=== PATIENT | male | born 1965 | race Caucasian/White ===

== ENCOUNTER 2018-10-07 15:26 | Emergency (ER) | payer SELFPAY ==
[~2018-10-07] VITALS: Ht 157.5 cm; Wt 68.0 kg
--- OUTSIDE RECORDS SUMMARY | 2018-10-07 15:31 | XMS REPORT | Referral Summary ---
Author Author [facility] Organization [facility] Address Unknown Phone Unavailable Care Team Providers Care Spear Fisher Name Role Phone Aleksandra Martinez PCP Encounter Date(s): 03/20/16 - 03/20/16 [facility] [address] [place], [place] [address] [phone] Discharge Diagnosis: Chronic low back pain Discharge Diagnosis: Hypertension Discharge Disposition: 01-Home or Self Care Attending Physician: Aftab Chung MD Admitting Physician: Aftab Chung MD Vital Signs Most recent to 1 oldest [Reference Range]: Temperature Oral 36.8 degC [35.8-37.3 degC] (03/20/16 1:19 PM) Peripheral Pulse 98 bpm Rate [60-100 bpm] (03/20/16 3:27 PM) Respiratory Rate 16 br/min [14-20 br/min] (03/20/16 3:27 PM) Blood Pressure 142/90 mmHg [90-140/60-90 mmHg] *HI* (03/20/16 3:27 PM) Problem List Condition Effective Dates Status Health Status Informant Acute Active pain(Confirmed) Diabetes(Confirmed) Active patient High blood Active patient pressure(Confirmed) Depression(Confirmed Active patient ) Substance Active patient abuse(Confirmed) Allergies, Adverse Reactions, Alerts No Known Medication Allergies Medications Advair HFA 115 mcg-21 mcg/inh inhalation aerosol 2 puffs, Inhalation, Daily, # 1 Each, 0 Refill(s), Indication: SOA Start Date: 03/10/16 Status: Ordered carvedilol 12.5 mg oral tablet 12.5 mg 1 tabs, Oral, Daily, 0 Refill(s), Indication: HTN Start Date: 03/05/16 Status: Ordered hydrOXYzine hydrochloride 25 mg oral tablet 25 mg 1 tabs, Oral, q6hr, Anxiety, # 90 tabs, 0 Refill(s), Indication: anxiety Start Date: 03/16/16 Stop Date: 04/15/16 Status: Ordered ibuprofen 800 mg, Oral, BID, as needed for headache, 0 Refill(s) Start Date: 03/05/16 Status: Ordered lisinopril 10 mg oral tablet 20 mg 2 tabs, Oral, Daily, 0 Refill(s), Indication: HTN Start Date: 09/06/15 Status: Ordered metFORMIN 500 mg oral tablet 500 mg 1 tabs, Oral, Daily, 0 Refill(s), Indication: glycemic control Start Date: 09/06/15 Status: Ordered Remeron 30 mg oral tablet 30 mg 1 tabs, Oral, Bedtime (once a day), # 30 tabs, 0 Refill(s), Indication: mo od Start Date: 03/16/16 Status: Ordered simvastatin 40 mg oral tablet 40 mg 1 tabs, Oral, Daily, # 90 tabs, 0 Refill(s), Indication: hypeercholesterol emia Start Date: 09/06/15 Status: Ordered traMADol 50 mg oral tablet 50 mg 1 tabs, Oral, q8hr, X 5 days, # 15 tabs, 0 Refill(s) Start Date: 03/20/16 Stop Date: 03/25/16 Status: Ordered Ultram 50 mg oral tablet 100 mg 2 tabs, Oral, q6hr, Pain Moderate (4-6), # 30 tabs, 0 Refill(s), Indicati on: pain Start Date: 03/16/16 Stop Date: 03/30/16 Status: Ordered Visine 1 drops, Eye-Both, BID, as needed for dry eyes, 0 Refill(s) Start Date: 03/05/16 Status: Ordered Results No data available for this section Immunizations Vaccine Date Refusal Reason influenza virus vaccine, live 02/19/13 Procedures No data available for this section Social History Social History Type Response Smoking Status Current every day smoker; Tobacco use per day: 1 Pack Assessment and Plan No data available for this section
--- OUTSIDE RECORDS SUMMARY | 2018-10-07 15:31 | XMS REPORT | Referral Summary ---
Author Author [facility] Organization [facility] Address Unknown Phone Unavailable Care Team Providers Care Dimensional Integration Engineer Name Role Phone Aleksandra Martinez PCP Encounter Date(s): 07/06/16 - 07/06/16 [facility] [address] [place], [place] [address] Discharge Diagnosis: Abrasion of right elbow Discharge Diagnosis: Contusion of right elbow Discharge Disposition: 01-Home or Self Care Attending Physician: Darnell Bhakta MD Admitting Physician: Darnell Bhakta MD Vital Signs Most recent to 1 oldest [Reference Range]: Temperature Oral 37.1 degC [35.8-37.3 degC] (07/06/16 8:40 AM) Peripheral Pulse 93 bpm Rate [60-100 bpm] (07/06/16 8:40 AM) Respiratory Rate 16 br/min [14-20 br/min] (07/06/16 8:40 AM) Blood Pressure 137/91 mmHg [90-140/60-90 mmHg] (07/06/16 8:40 AM) SpO2 97 % (07/06/16 8:40 AM) Problem List Condition Effective Dates Status Health [...] Indication: HTN Start Date: 03/05/16 Status: Ordered ibuprofen 800 mg, Oral, BID, as needed for headache, 0 Refill(s) Start Date: 03/05/16 Status: Ordered lisinopril 10 mg oral tablet 20 mg 2 tabs, Oral, Daily, 0 Refill(s), Indication: HTN Start Date: 09/06/15 Status: Ordered lisinopril 20 mg oral tablet 20 mg 1 tabs, Oral, Daily, # 30 tabs, 0 Refill(s) Start Date: 06/05/16 Status: Ordered metFORMIN 500 mg oral tablet 500 mg 1 tabs, Oral, Daily, 0 Refill(s), Indication: glycemic control Start Date: 09/06/15 Status: Ordered Nitrostat 0.4 mg sublingual tablet 0.4 mg 1 tabs, SubLingual, q5min, as needed for chest pain, not to exceed 3 dose s/15 min--if pain persists, seek medical attention, # 1 bottles, 0 Refill(s) Start Date: 06/05/16 Status: Ordered Pepcid 20 mg oral tablet 20 mg 1 tabs, Oral, BID, # 60 tabs, 0 Refill(s) Start Date: 06/05/16 Status: Ordered Remeron 30 mg oral tablet 30 mg 1 tabs, Oral, Bedtime (once a day), # 30 tabs, 0 Refill(s), Indication: mo od Start Date: 03/16/16 Status: Ordered simvastatin 40 mg oral tablet 40 mg 1 tabs, Oral, Daily, # 90 tabs, 0 Refill(s), Indication: hypeercholesterol emia Start Date: 09/06/15 Status: Ordered Visine 1 drops, Eye-Both, BID, as needed for dry eyes, 0 Refill(s) Start Date: 03/05/16 Status: Ordered Results No data available for this section Immunizations Given and Recorded Vaccine Date Status Refusal Reason influenza virus vaccine, live 02/19/13 Given Procedures No data available for this section Social History Social History Type Response Smoking Status Current every day smoker; Tobacco use per day: 1 Pack Assessment and Plan No data available for this section
--- OUTSIDE RECORDS SUMMARY | 2018-10-07 15:32 | XMS REPORT ---
Author Author LORENZA METZ [facility] Address [address] [phone] Care Team Providers Care Donor Support Technician Name Role Phone LORENZA METZ Unavailable PROBLEMS Type Condition ICD9-CM Code [id number] Code Onset Dates Condition Status SNOMED Code Problem Essential hypertension I10 Active 22431568 Problem PTSD (post-traumatic stress disorder) F43.10 Active 02974563 Problem Chemical abuse F19.10 Active 62556024 ALLERGIES No Known Allergies ENCOUNTERS Encounter Location Date Diagnosis [facility] [address] [phone] September, Essential hypertension I10 ; Chemical abuse F19.10 and PTSD (post- traumatic stress disorder) F43.10 IMMUNIZATIONS No Known Immunizations SOCIAL HISTORY Never Assessed REASON FOR VISIT at treatment center, needs BP addressed PLAN OF CARE Activity Details Follow Up 3 months if in the area Reason: VITAL SIGNS Weight 148 lbs 2017-09-06 Height 63 in 2017-09-06 BMI 26.21 kg/m2 2017-09-06 Temperature 98.5 degrees Fahrenheit 2017-09-06 Heart Rate 76 /min 2017-09-06 Oximetry 97 % 2017-09-06 Blood pressure systolic 112 mm Hg 2017-09-06 Blood pressure diastolic 71 mm Hg 2017-09-06 MEDICATIONS Medication Instructions Dosage Frequency Start Date End Date Duration Status Lisinopril-Hydrochlorothiazide 20-25 MG Orally Once a day 1 tablet 24h September, 30 day(s) Active Lisinopril-Hydrochlorothiazide 20-25 MG Orally Once a day 1 tablet 24h 30 day(s) Active RESULTS No Results PROCEDURES No Known procedures INSTRUCTIONS MEDICATIONS ADMINISTERED No Known Medications MEDICAL (GENERAL) HISTORY Type Description Date Medical History drug abuse Medical History alcohol abuse Medical History hypertension Surgical History 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
--- OUTSIDE RECORDS SUMMARY | 2018-10-07 15:32 | XMS REPORT ---
Author Author Brandon Grimaldo Organization [employer] Address Unknown Phone Unavailable Care Team Providers Care Export Freight Manager Name Role Phone Brandon Grimaldo CP Unavailable Allergies No Known Allergies Problems No Known Problems Medications No Known Medications Results No Known Results Summary Purpose [employer] Submission
--- OUTSIDE RECORDS SUMMARY | 2018-10-07 15:32 | XMS REPORT ---
Author Author Aftab Metcalf Organization [employer] Address Unknown Phone Unavailable Care Team Providers Care Turkey Cleaner Name Role Phone Aftab Metcalf CP Unavailable Allergies No Known Allergies Problems No Known Problems Medications No Known Medications Results No Known Results Summary Purpose [employer] Submission
--- OUTSIDE RECORDS SUMMARY | 2018-10-07 15:32 | XMS REPORT ---
Author Author Tanna Gomez Organization [employer] Address Unknown Phone Unavailable Care Team Providers Care Channel Layer Name Role Phone Tanna Gomez CP Unavailable Allergies No Known Allergies Problems No Known Problems Medications No Known Medications Results No Known Results Summary Purpose [employer] Submission
--- OUTSIDE RECORDS SUMMARY | 2018-10-07 15:32 | XMS REPORT ---
Author Author LORENZA METZ [facility] Address [address] [phone] Care Team Providers Care Distribution Center Assistant Name Role Phone LORENZA METZ Unavailable PROBLEMS Type Condition ICD9-CM Code [id number] Code Onset Dates Condition Status SNOMED Code Problem Other chronic pain G89.29 Active 05888388 Problem Essential hypertension I10 Active 47639786 Problem PTSD (post-traumatic stress disorder) F43.10 Active 12434832 Problem Chemical abuse F19.10 Active 13881117 ALLERGIES No Known Allergies ENCOUNTERS Encounter Location Date Diagnosis [facility] [address] [place] [id number] Nov, Acute allergic conjunctivitis of both eyes H10.13 ; Pain in left shoulder M25.512 ; Other chronic pain G89.29 ; Essential hypertension I10 ; PTSD (post- traumatic stress disorder) F43.10 and Chemical abuse F19.10 [facility] [address] [phone] September, Essential hypertension I10 ; Chemical abuse F19.10 and PTSD (post- traumatic stress disorder) F43.10 IMMUNIZATIONS No Known Immunizations SOCIAL HISTORY Never Assessed REASON FOR VISIT pink eye? PLAN OF CARE Activity Details Follow Up 3 Months Reason: VITAL SIGNS Weight 142 lbs 2017-11-24 Height 63 in 2017-11-24 BMI 25.15 kg/m2 2017-11-24 Temperature 97.8 degrees Fahrenheit 2017-11-24 Heart Rate 81 /min 2017-11-24 Oximetry 99 % 2017-11-24 Blood pressure systolic 113 mm Hg 2017-11-24 Blood pressure diastolic 74 mm Hg 2017-11-24 MEDICATIONS Medication Instructions Dosage Frequency Start Date End Date Duration Status Tramadol HCl 50 MG Orally every 6 hrs 1 or 2 tablet as needed No more than 8 per day 6h Nov, 30 days Active Lisinopril-Hydrochlorothiazide 20-25 MG Orally Once a day 1 tablet 24h 30 day(s) Not-Taking Maxitrol 3.5-76613-6.1 Ophthalmic Four times a day 1 drop into affected eye 6h Nov, 14 days Active Lisinopril-Hydrochlorothiazide 20-25 MG Orally Once a day 1 tablet 24h September, 30 day(s) Active RESULTS No Results PROCEDURES No Known procedures INSTRUCTIONS MEDICATIONS ADMINISTERED No Known Medications MEDICAL (GENERAL) HISTORY Type Description Date Medical History drug abuse Medical History alcohol abuse Medical History hypertension Surgical History 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
--- OUTSIDE RECORDS SUMMARY | 2018-10-07 15:32 | XMS REPORT ---
Author Author Aftab Metcalf Organization [employer] Address Unknown Phone Unavailable Care Team Providers Care Glass Decorator Name Role Phone Aftab Metcalf CP Unavailable Allergies No Known Allergies Problems No Known Problems Medications No Known Medications Results No Known Results Summary Purpose [employer] Submission
--- OUTSIDE RECORDS SUMMARY | 2018-10-07 15:32 | XMS REPORT | Referral Summary ---
Author Author [facility] Organization [facility] Address Unknown Phone Unavailable Care Team Providers Care Tyre Fitter Name Role Phone Aleksandra Martinez PCP Encounter VC Date(s): 06/05/16 - 06/05/16 [facility] [address] [place], [place] [address] Discharge Diagnosis: Chest pain Discharge Diagnosis: Suicidal ideation Discharge Diagnosis: Alcohol use disorder Discharge Disposition: 01-Home or Self Care Attending Physician: Josué Heaton DO Admitting Physician: Josué Heaton DO Vital Signs Most recent to 1 oldest [Reference Range]: Temperature Oral 37 degC [35.8-37.3 degC] (06/05/16 12:20 PM) Peripheral Pulse 104 bpm Rate [60-100 bpm] *HI* (06/05/16 12:20 PM) Heart Rate Monitored 85 bpm [60-100 bpm] (06/05/16 10:37 PM) Respiratory Rate 15 br/min [14-20 br/min] (06/05/16 10:37 PM) Blood Pressure 166/100 mmHg [90-140/60-90 mmHg] *HI* (06/05/16 10:37 PM) Mean Arterial 114 mmHg Pressure, Cuff (06/05/16 9:15 PM) SpO2 96 % (06/05/16 12:34 PM) Problem List Condition Effective Dates Status [...] Refill(s) Start Date: 03/05/16 Status: Ordered Results Hematology Most recent to 1 oldest [Reference Range]: WBC [4.8-10.8 12.8 10*3/uL 10*3/uL] *HI* (06/05/16 1:12 PM) RBC [4.60-6.20] 4.55 *LOW* (06/05/16 1:12 PM) Hgb [14.0-18.0 13.7 gm/dL gm/dL] *LOW* (06/05/16 1:12 PM) Hct [42.0-52.0 %] 39.4 % *LOW* (06/05/16 1:12 PM) MCV [82.0-99.0 fL] 86.6 fL (06/05/16 1:12 PM) MCH [27.0-32.0 pg] 30.1 pg (06/05/16 1:12 PM) MCHC [32.0-36.0 34.8 gm/dL gm/dL] (06/05/16 1:12 PM) RDW [11.5-14.5 %] 13.8 % (06/05/16 1:12 PM) Platelet [150-400 300 10*3/uL 10*3/uL] (06/05/16 1:12 PM) MPV [9.4-12.3 fL] 9.1 fL *LOW* (06/05/16 1:12 PM) Immature 1.1 % Granulocytes *HI* [0.0-1.0 %] (06/05/16 1:12 PM) Neutrophils [51-75 74 % %] (06/05/16 1:12 PM) Lymphocytes [20-46 14 % %] *LOW* (06/05/16 1:12 PM) Monocytes [4-11 %] 10 % (06/05/16 1:12 PM) Eosinophils [0-4 %] 1 % (06/05/16 1:12 PM) Basophils [0-2 %] 0 % (06/05/16 1:12 PM) Neutro Absolute 9.45 [1.90-7.00] *HI* (06/05/16 1:12 PM) Lymph Absolute 1.81 [0.80-3.30] (06/05/16 1:12 PM) Sullivan Absolute 1.33 [0.30-1.00] *HI* (06/05/16 1:12 PM) Eos Absolute 0.06 [0.00-0.50] (06/05/16 1:12 PM) Baso Absolute 0.03 [0.00-0.20] (06/05/16 1:12 PM) Chemistry Most recent to 1 oldest [Reference Range]: Sodium Lvl [136-144 134 mEq/L mEq/L] *LOW* (06/05/16 1:12 PM) Potassium Lvl 3.4 mEq/L [3.6-5.1 mEq/L] *LOW* (06/05/16 1:12 PM) Chloride [99-109 98 mEq/L mEq/L] *LOW* (06/05/16 1:12 PM) CO2 [22-32 mEq/L] 24 mEq/L (06/05/16 1:12 PM) AGAP [3-20] 12 (06/05/16 1:12 PM) BUN [4-20 mg/dL] 12 mg/dL (06/05/16 1:12 PM) Glucose Lvl [70-100 103 mg/dL mg/dL] *HI* (06/05/16 1:12 PM) Creatinine Lvl 0.85 mg/dL [0.64-1.27 mg/dL] (06/05/16 1:12 PM) eGFR [>60] >60 1 (06/05/16 1:12 PM) Calcium Lvl 9.0 mg/dL [8.6-10.0 mg/dL] (06/05/16 1:12 PM) Albumin Lvl [3.5-4.8 4.0 gm/dL gm/dL] (06/05/16 1:12 PM) Total Protein 6.6 gm/dL [6.1-7.9 gm/dL] (06/05/16 1:12 PM) Globulin [1.9-4.3 2.6 gm/dL gm/dL] (06/05/16 1:12 PM) ALT [17-63 U/L] 15 U/L *LOW* (06/05/16 1:12 PM) AST [15-41 U/L] 22 U/L (06/05/16 1:12 PM) Alk Phos [26-104 52 U/L U/L] (06/05/16 1:12 PM) Bili Total [0.2-1.2 0.5 mg/dL 2 mg/dL] (06/05/16 1:12 PM) Troponin [<0.06 <0.05 ng/mL ng/mL] (06/05/16 1:12 PM) Lipase Lvl [8-48 34 U/L U/L] (06/05/16 1:12 PM) 1Result Comment: Multiply eGFR results by 1.21 for race. 2Result Comment: Naproxen, specifically the metabolite O-desmethylnaproxen, may cause spurious elevation in Total Bilirubin levels. Therapeutic Drug Monitoring Most recent to 1 oldest [Reference Range]: Acetaminophen Lvl <10 ug/mL [10-30 ug/mL] (06/05/16 1:12 PM) Salicylate Lvl [0-30 <4 mg/dL mg/dL] (06/05/16 1:12 PM) Toxicology Most recent to 1 oldest [Reference Range]: Ethanol Lvl Not Detected (06/05/16 1:12 PM) U Amphetamine Scrn Negative (06/05/16 1:12 PM) U Cocaine Scrn Negative (06/05/16 1:12 PM) U Cannab Scrn Negative (06/05/16 1:12 PM) U Opiate Scrn Negative (06/05/16 1:12 PM) U PCP Scrn Negative (06/05/16 1:12 PM) U Benzodiazepine Negative Scrn (06/05/16 1:12 PM) U Barbiturate Scrn Negative (06/05/16 1:12 PM) Methadone Lvl Negative (06/05/16 1:12 PM) Tricyclics Negative 1 (06/05/16 1:12 PM) 1Result Comment: Cut-off concentrations: Amphetamines: 1000 ng/mL Cocaine: 300 ng/mL Cannabinoid: 50 ng/mL Opiate: 300 ng/mL Phencyclidine (PCP): 25 ng/mL Benzodiazepine: 200 ng/mL Barbiturate: 200 ng/mL Methadone: 300 ng/mL Tricyclic: 300 ng/mL The urine drug screen assays are qualitative screens. A more specific GC/MS method must be performed to obtain a confirmed analytical result. Unconfirmed screening results must not be used for non-medical purposes(e.g. employment or legal testing) Immunizations Given and Recorded Vaccine Date Status Refusal Reason influenza virus vaccine, live 02/19/13 Given Procedures No data available for this section Social History Social History Type Response Smoking Status Current every day smoker; Tobacco use per day: 1 Pack Assessment and Plan No data available for this section
--- OUTSIDE RECORDS SUMMARY | 2018-10-07 15:32 | XMS REPORT ---
Author Author Aftab Metcalf Organization [employer] Address Unknown Phone Unavailable Care Team Providers Care Data Control Assistant Name Role Phone Aftab Metcalf CP Unavailable Allergies No Known Allergies Problems No Known Problems Medications No Known Medications Results No Known Results Summary Purpose [employer] Submission
--- OUTSIDE RECORDS SUMMARY | 2018-10-07 15:32 | XMS REPORT ---
Author Author Tanna Gomez Organization [employer] Address Unknown Phone Unavailable Care Team Providers Care Nuclear Monitoring Technician Name Role Phone Tanna Gomez CP Unavailable Allergies No Known Allergies Problems No Known Problems Medications No Known Medications Results No Known Results Summary Purpose [employer] Submission
--- OUTSIDE RECORDS SUMMARY | 2018-10-07 15:32 | XMS REPORT ---
Author Author BRITTNEY KHANNA Organization [facility] Address [address] [place] [address] Care Team Providers Care Chemist Assistant Name Role Phone BRITTNEY KHANNA Unavailable PROBLEMS Type Condition ICD9-CM Code [id number] Code Onset Dates Condition Status SNOMED Code Problem Primary insomnia F51.01 Active 7331749 Problem Primary hypertension I10 Active [id number] ALLERGIES No Known Allergies ENCOUNTERS Encounter Location Date Diagnosis [facility] [address] [facility] [id number] [address] Apr, Primary hypertension I10 ; Annual physical exam Z00.00 and Primary insomnia F51.01 IMMUNIZATIONS No Known Immunizations SOCIAL HISTORY Never Assessed REASON FOR VISIT Annual physical (male), pt wants a prostates exam and want to talk about some is sues that he is having PLAN OF CARE Activity Details Follow Up 1 Year Reason: Pending Test TSH w/ FREE T4 Pending Test LIPID PANEL Pending Test CMP Pending Test CBC Pending Test PSA (FREE AND TOTAL) Pending Test DIFFERENTIAL, MANUAL VITAL SIGNS Height 5 ft 2 in in 2018-04-25 Weight 161.3 lbs 2018-04-25 Temperature 98.0 degrees Fahrenheit 2018-04-25 Heart Rate 103 bpm 2018-04-25 Respiratory Rate 18 2018-04-25 Oximetry on room air:98 % 2018-04-25 BMI 29.50 kg/m2 2018-04-25 Blood pressure systolic 130 mmHg 2018-04-25 Blood pressure diastolic 92 mmHg 2018-04-25 MEDICATIONS Medication Instructions Dosage Frequency Start Date End Date Duration Status Zyprexa 20 MG Orally Once a day 1 tablet 24h 30 day(s) Active Lisinopril 10 MG Orally Once a day 1 tablet 24h 30 day(s) Active RESULTS No Results PROCEDURES Procedure Date Ordered Result Body Site COMPLETE CBC W/AUTO DIFF WBC Apr 25, 2018 LIPID PANEL Apr 25, 2018 ASSAY OF PSA, FREE Apr 25, 2018 ASSAY THYROID STIM HORMONE Apr 25, 2018 COMPREHEN METABOLIC PANEL Apr 25, 2018 ASSAY OF PSA, TOTAL Apr 25, 2018 ASSAY OF FREE THYROXINE Apr 25, 2018 INSTRUCTIONS MEDICATIONS ADMINISTERED No Known Medications MEDICAL (GENERAL) HISTORY Type Description Date Surgical History right hand middle finger Hospitalization History surgery
--- OUTSIDE RECORDS SUMMARY | 2018-10-07 15:32 | XMS REPORT ---
Author Author Aftab Metcalf Organization [employer] Address Unknown Phone Unavailable Care Team Providers Care Wound/Ostomy Nurse Name Role Phone Aftab Metcalf CP Unavailable Allergies No Known Allergies Problems No Known Problems Medications No Known Medications Results No Known Results Summary Purpose [employer] Submission
--- OUTSIDE RECORDS SUMMARY | 2018-10-07 15:32 | XMS REPORT ---
Author Author Aftab Metcalf Organization [employer] Address Unknown Phone Unavailable Care Team Providers Care Chest Painting Leader Name Role Phone Aftab Metcalf CP Unavailable Allergies No Known Allergies Problems No Known Problems Medications No Known Medications Results No Known Results Summary Purpose [employer] Submission
--- OUTSIDE RECORDS SUMMARY | 2018-10-07 15:32 | XMS REPORT ---
Author Author Aftab Metcalf Organization [employer] Address Unknown Phone Unavailable Care Team Providers Care Electric Motor And Generator Assembler Name Role Phone Aftab Metcalf CP Unavailable Allergies No Known Allergies Problems No Known Problems Medications No Known Medications Results No Known Results Summary Purpose [employer] Submission
[2018-10-07] MEDS ORDERED: LISI10TA2 (15:36)
[2018-10-07] MEDS ORDERED: LIPITOR (15:36)
[2018-10-07] MEDS ORDERED: AMOXICILLIN (15:37)
[2018-10-07] MEDS ORDERED: ADVAIR (15:37)
--- NOTE | 2018-10-07 15:45 | ED Lower Extremity ---
General Chief Complaint: Lower Extremity Stated Complaint: L LEG PAIN Nursing Triage Note: PAIN BEHIND LEFT KNEE STARTING MONDAY. DENIES INJURY. Nursing Sepsis Screen: No Definite Risk Source: patient Exam Limitations: no limitations History of Present Illness Date Seen by Provider: Oct 07, 2018 Time Seen by Provider: 15:45 Initial Comments 52-year-old male who presents to emergency room with complaints of pain behind his left knee starting 4 days ago. He reports that he is on his knees all the time and has been walking for work. He reports that he has history of arthritis to the knee. There is no swelling, ecchymosis, or dependent edema. Pain/Injury Location: right knee Modifying Factors: Worse With Movement Allergies and Home Medications Allergies Coded Allergies: No Known Drug Allergies (Unverified , 10/07/18) Home Medications Hydrocodone Bit/Acetaminophen 1 Tab Tab, 1 EACH PO Q4-6HR PRN for PAIN-MODERATE Prescribed by: RANDALL KERN on 10/07/18 1622 Patient Home Medication List Home Medication List Reviewed: Yes Review of Systems Constitutional: see HPI; No chills, No fever Musculoskeletal: see HPI, joint pain (left knee pain) All Other Systems Reviewed Negative Unless Noted: Yes Past Rvwssmy-Fthvma-Gmjepp Hx Past Med/Social Hx: Reviewed Nursing Past Med/Soc Hx Patient Social History Alcohol Use: Denies Use Recreational Drug Use: No Smoking Status: Current Everyday Smoker Recent Foreign Travel: No Contact w/Someone Who Travel: No Recent Infectious Disease Expo: No Past Medical History Surgeries: Yes Orthopedic Respiratory: No Cardiac: Yes High Cholesterol, Hypertension Neurological: No Genitourinary: No Gastrointestinal: No Musculoskeletal: No Endocrine: No HEENT: No Cancer: No Psychosocial: No Family Medical History Reviewed Nursing Family Hx Physical Exam Vital Signs Vital Signs - First Documented 10/07/18 15:32 Temp 98.0 Pulse 95 Resp 16 B/P (MAP) 140/93 (109) Pulse Ox 96 O2 Delivery Room Air Capillary Refill : Less Than 3 Seconds Height, Weight, BMI Height: 5'2.00" Weight: 150lbs. oz. 68.437460ur; BMI Method:Stated General Appearance: WD/WN, no apparent distress Cardiovascular: normal peripheral pulses, regular rate, rhythm, no edema, no gallop, no JVD, no murmur Respiratory: chest non-tender, lungs clear, normal breath sounds, no respiratory distress, no accessory muscle use Knees: right knee pain (worse with ambulation and movement.) Neurologic/Tendon: normal sensation, normal motor functions, normal tendon functions, responds to pain, no evidence tendon injury Neurologic/Psychiatric: alert, normal mood/affect, oriented x 3 Skin: normal color, warm/dry Progress/Results/Core Measures Results/Orders My Orders Orders - RANDALL KERN Knee, Left, 3 Views (10/07/18 15:44) Vital Signs/I&O 10/07/18 10/07/18 15:32 16:33 Temp 98.0 98.0 Pulse 95 95 Resp 16 16 B/P (MAP) 140/93 (109) 140/93 (109) Pulse Ox 96 96 O2 Delivery Room Air Blood Pressure Mean: 109 Diagnostic Imaging Diagonstic Imaging: Xray Plain Films/CT/US/NM/MRI: knee Comments [facility] [place], [place] NAME: [facility] REC#: [id number] PT STATUS: REG ER : 1965 PHYSICIAN: RANDALL KERN ADMIT DATE: 10/07/18/ER Draft Date of Exam:10/07/18 KNEE, LEFT, 3 VIEWS INDICATION: Left posterior knee pain. TIME OF EXAM: 3:52 PM 3 views of the left knee were obtained. FINDINGS: Alignment is normal. Joint spaces are well maintained. Articular surfaces are smooth. No fracture, dislocation or effusion is seen. IMPRESSION: No acute bony abnormality is detected. Dictated on workstation # [id number] Dict: 10/07/18 1559 Trans: 10/07/18 1610 [id number] Interpreted by: MADIHA OGRDON MD Electronically signed by: Reviewed: Reviewed by Me Departure Impression Primary Impression: Knee pain Qualified Codes: M25.562 - Pain in left knee Disposition: 01 HOME, SELF-CARE Condition: Stable/Unchanged Departure-Patient Inst. Decision time for Depature: 16:18 Referrals: [facility]/DONNIE (PCP) Primary Care Physician ANDRE KHANNA APRN (Family) Primary Care Physician Patient Instructions: Knee Sprain (DC) Add. Discharge Instructions: Ice to the sore areas at 20 minute intervals. You may use ibuprofen and Tylenol as directed by the bottle for pain relief. Wear the Leno bandage as needed for comfort. Follow-up with her primary care provider within 1 week for recheck. Return back to the emergency room for worsening symptoms or concerns as needed. All discharge instructions reviewed with patient and/or family. Voiced understanding. Scripts Hydrocodone Bit/Acetaminophen (Hydrocodone/Acetaminophen 5/325mg Tablet) 1 Tab Tab 1 EACH PO Q4-6HR PRN for PAIN-MODERATE MDD 10 for 3 Days, #10 TAB Prov: RANDALL KERN 10/07/18 RANDALL KERN Oct 07, 2018 15:45
--- NOTE | 2018-10-07 16:11 | Diagnostic Imaging Report ---
INDICATION: Left posterior knee pain. TIME OF EXAM: 3:52 PM 3 views of the left knee were obtained. FINDINGS: Alignment is normal. Joint spaces are well maintained. Articular surfaces are smooth. No fracture, dislocation or effusion is seen. IMPRESSION: No acute bony abnormality is detected. Dictated by: Dictated on workstation # [id number]
[2018-10-07] MEDS ORDERED: ACHD5005 PO (16:22)
[2018-10-07 16:33] VITALS: BP 140/93
== END 2018-10-07 16:33 | disposition home or self-care (01) ==
LOC: ER 15:28
DX: M25.562 Pain in left knee (principal); E78.00 Pure hypercholesterolemia, unspecified; I10 Essential (primary) hypertension; F17.200 Nicotine dependence, unspecified, uncomplicated; X50.1XXA Overexertion from prolonged static or awkward postures, initial encounter; Y92.59 Other trade areas as the place of occurrence of the external cause; Y99.0 Civilian activity done for income or pay
CPT/HCPCS: 73562

== ENCOUNTER 2018-12-10 12:06 | Emergency (ER) | payer SELFPAY ==
[~2018-12-10] VITALS: Ht 157.5 cm; Wt 68.0 kg
[~2018-12-10 12:06] MED LIST: ACHD5005 PO; ADVAIR; AMOXICILLIN; LIPITOR; LISI10TA2
[2018-12-10] MEDS ORDERED: NS IV 1000 ML 1,000 ML IV SCH (12:45)
[2018-12-10 12:47] LABS: BILIRUBIN,URINE NEGATIVE (NEGATIVE); CLARITY,URINE CLEAR; COLOR,URINE YELLOW; GLUCOSE, URINE (UA) NEGATIVE (NEGATIVE); KETONES,URINE NEGATIVE (NEGATIVE); LEUKOCYTE ESTERASE ,URINE NEGATIVE (NEGATIVE); NITRITE,URINE NEGATIVE (NEGATIVE); PH,URINE 5 (5-9); PROTEIN,URINE NEGATIVE (NEGATIVE); UROBILINOGEN,URINE NORMAL (NORMAL)
--- OUTSIDE RECORDS SUMMARY | 2018-12-10 12:55 | XMS REPORT | Continuity of Care Document ---
Author Organization Unknown Address Unknown Phone Unavailable Allergies Active Description Code Type Severity Reaction Onset Reported/Identified Relationship to Patient Clinical Status Yes No Known Drug Allergies Drug Allergy N/A N/A 11/05/2010 Yes No Known Allergies No Known Allergies Drug Allergy Unknown N/A 08/29/2015 Yes No Known Medication Allergies NKMA N/A N/A 09/05/2015 Yes CHOCOLATE 361 DRUG INGREDI~Food N/A Hives 09/06/2015 09/06/2015 Yes No Known Allergies NKA MED N/A N/A 04/11/2016 Medications Medication Packaging Start Date Stop Date Route Dosage Sig metFORMIN(metFORMIN) 09/05/2015 09/06/2015 Oral Oral, 0 Refill(s) lisinopril(lisinopril) 09/05/2015 09/06/2015 Oral Oral, Daily, 0 Refill(s) carvedilol(Coreg) 09/05/2015 09/06/2015 Oral Oral, BID, 0 Refill(s) simvastatin(simvastatin) 09/05/2015 09/06/2015 Oral Oral, Bedtime (once a day), 0 Refill(s) nicotine(nicotine 2 mg oral transmucosal gum) 1 Each 09/06/2015 09/06/2015 Chewed 2 mg 2 mg=1 Each, Chewed, q1hr, PRN: Smoking Cessation nicotine(nicotine 21 mg/24 hr transdermal film, extended release) 1 patches 09/06/2015 09/06/2015 TransDermal 1 patches, TransDermal, Daily metFORMIN(metFORMIN 500 mg oral tablet) 1 tabs 09/06/2015 Oral 500 mg 500 mg=1 tabs, Oral, Daily, 0 Refill(s) carvedilol(Coreg CR 10 mg oral capsule, extended release) 1 caps 09/06/2015 03/05/2016 Oral 10 mg 10 mg=1 caps, Oral, Daily, 0 Refill(s) traMADol(traMADol 50 mg oral tablet) 2 tabs 09/06/2015 03/05/2016 Oral 100 mg 100 mg=2 tabs, Oral, q4hr, 50 mg to 100 mg, PRN: as needed for pain, 60 tabs, 0 Refill(s) lisinopril(lisinopril 10 mg oral tablet) 2 tabs 09/06/2015 Oral 20 mg 20 mg=2 tabs, Oral, Daily, 0 Refill(s) simvastatin(simvastatin 40 mg oral tablet) 1 tabs 09/06/2015 Oral 40 mg 40 mg=1 tabs, Oral, Daily, 90 tabs, 0 Refill(s) albuterol(Ventolin HFA 90 mcg/inh inhalation aerosol) 2 puffs 09/06/2015 03/05/2016 Inhalation 2 puffs, Inhalation, q4hr, PRN: as needed for wheezing, 18 g, 0 Refill(s) LORazepam(Ativan) 1 tabs 09/06/2015 09/06/2015 Oral 1 mg 1 mg=1 tabs, Oral, Once, PRN: Anxiety OLANZAPINE 10 MG PO TBDP 09/06/2015 Oral 10 2 TIMES DAILY PRN ALUM T MAG HYDROXIDE-SIMETH 200-200-20 MG/5ML PO SUSP 09/06/2015 Oral 30 4 TIMES DAILY PRN TRAZODONE HCL 100 MG PO TABS 09/06/2015 Oral 100 BEDTIME PRN ACETAMINOPHEN 325 MG PO TABS 09/06/2015 Oral 650 EVERY 6 HOURS PRN NICOTINE POLACRILEX 2 MG MT LOZG 09/06/2015 Oral 2 EVERY 2 HOURS PRN MAGNESIUM HYDROXIDE 400 MG/5ML PO SUSP 09/06/2015 Oral 30 DAILY PRN ALBUTEROL SULFATE HFA 108 (90 BASE) MCG/ACT IN AERS 09/06/2015 Inhalation 2 EVERY 4 HOURS PRN QUETIAPINE FUMARATE 25 MG PO TABS 09/06/2015 Oral 25 4 TIMES DAILY PRN ATORVASTATIN CALCIUM 20 MG PO TABS 09/07/2015 Oral 20 BEDTIME LISINOPRIL 10 MG PO TABS 09/07/2015 Oral 10 DAILY SIMVASTATIN 20 MG PO TABS 09/07/2015 Oral 40 DAILY METFORMIN HCL 500 MG PO TABS 09/07/2015 Oral 500 DAILY CARVEDILOL PHOSPHATE ER 10 MG PO CP24 09/07/2015 Oral 10 DAILY HYDROXYZINE HCL 25 MG PO TABS 09/07/2015 Oral 25 3 TIMES DAILY PRN SERTRALINE HCL 50 MG PO TABS 09/07/2015 Oral 50 DAILY MIRTAZAPINE 15 MG PO TABS 09/07/2015 Oral 15 BEDTIME NICOTINE POLACRILEX 2 MG MT LOZG 09/08/2015 Oral 2 EVERY 2 HOURS PRN SERTRALINE HCL 100 MG PO TABS 09/09/2015 Oral 100 DAILY ALBUTEROL SULFATE HFA 108 (90 BASE) MCG/ACT IN AERS 09/09/2015 Inhalation 2 EVERY 6 HOURS PRN IBUPROFEN 400 MG PO TABS 09/10/2015 Oral 800 3 TIMES DAILY PRN LISINOPRIL 10 MG PO TABS 09/10/2015 Oral 10 ONCE LISINOPRIL 10 MG PO TABS 09/11/2015 Oral 20 DAILY acetaminophen(acetaminophen) 2 tabs 03/05/2016 03/05/2016 Oral 650 mg 650 mg=2 tabs, Oral, Once LORazepam(Ativan) 1 tabs 03/05/2016 03/05/2016 Oral 1 mg 1 mg=1 tabs, Oral, Once ibuprofen(ibuprofen) 03/05/2016 Oral 800 mg 800 mg, Oral, BID, PRN: as needed for headache, 0 Refill(s) tetrahydrozoline ophthalmic(Visine) 1 drops 03/05/2016 Eye-Both 1 drops, Eye-Both, BID, PRN: as needed for dry eyes, 0 Refill(s) carvedilol(carvedilol 12.5 mg oral tablet) 1 tabs 03/05/2016 Oral 12.5 mg 12.5 mg=1 tabs, Oral, Daily, 0 Refill(s) nicotine(nicotine 2 mg oral transmucosal gum) 1 Each 03/05/2016 03/16/2016 Oral 2 mg 2 mg=1 Each, Oral, q1hr, PRN: Other (See Comment) nicotine(Habitrol 21 mg/24 hr transdermal film, extended release) 1 patches 03/05/2016 03/16/2016 TransDermal 1 patches, TransDermal, Daily LORazepam(Ativan) 0.5 mL 03/05/2016 03/16/2016 IntraMuscular 1 mg 1 mg=0.5 mL, IntraMuscular, q5min, PRN: Seizure acetaminophen(acetaminophen) 2 tabs 03/05/2016 03/16/2016 Oral 650 mg 650 mg=2 tabs, Oral, q4hr, PRN: Pain Mild (1-3) haloperidol(Haldol) 0.2 mL 03/05/2016 03/16/2016 IntraMuscular 1 mg 1 mg=0.2 mL, IntraMuscular, q4hr, PRN: Agitation ondansetron(Zofran) 1 tabs 03/05/2016 03/16/2016 Oral 4 mg 4 mg=1 tabs, Oral, q6hr, PRN: Nausea folic acid(folic acid) 1 tabs 03/05/2016 03/16/2016 Oral 1 mg 1 mg=1 tabs, Oral, Daily LORazepam(Ativan) 1 mL 03/05/2016 03/06/2016 IntraMuscular 2 mg 2 mg=1 mL, IntraMuscular, Once promethazine(Phenergan) 1 mL 03/05/2016 03/16/2016 IntraMuscular 25 mg 25 mg=1 mL, IntraMuscular, q4hr, PRN: Nausea haloperidol(Haldol) 0.1 mL 03/05/2016 03/16/2016 IntraMuscular 0.5 mg 0.5 mg=0.1 mL, IntraMuscular, q2hr, PRN: Other (See Comment) thiamine(thiamine) 1 tabs 03/05/2016 03/16/2016 Oral 100 mg 100 mg=1 tabs, Oral, Daily lisinopril(lisinopril) 2 tabs 03/05/2016 03/16/2016 Oral 40 mg 40 mg=2 tabs, Oral, Daily carvedilol(carvedilol) 1 tabs 03/05/2016 03/16/2016 Oral 12.5 mg 12.5 mg=1 tabs, Oral, Daily metFORMIN(metFORMIN) 1 tabs 03/06/2016 03/16/2016 Oral 500 mg 500 mg=1 tabs, Oral, Daily atorvastatin(atorvastatin) 1 tabs 03/06/2016 03/16/2016 Oral 20 mg 20 mg=1 tabs, Oral, Bedtime (once a day) haloperidol(Haldol) 1 tabs 03/07/2016 03/08/2016 Oral 1 mg 1 mg=1 tabs, Oral, BID traMADol(Ultram) 2 tabs 03/07/2016 03/16/2016 Oral 100 mg 100 mg=2 tabs, Oral, q6hr, PRN: Pain Moderate (4-6) ibuprofen(ibuprofen) 1 tabs 03/07/2016 03/16/2016 Oral 400 mg 400 mg=1 tabs, Oral, q6hr, PRN: Pain Mild (1-3) mirtazapine(Remeron) 1 tabs 03/08/2016 03/15/2016 Oral 15 mg 15 mg=1 tabs, Oral, Bedtime (once a day) fluticasone-salmeterol(Advair HFA 115 mcg-21 mcg/inh inhalation aerosol) 2 puffs 03/09/2016 03/16/2016 Inhalation 2 puffs, Inhalation, Daily fluticasone-salmeterol(Advair HFA 115 mcg-21 mcg/inh inhalation aerosol) 2 puffs 03/10/2016 Inhalation 2 puffs, Inhalation, Daily, 1 Each, 0 Refill(s) traMADol(Ultram 50 mg oral tablet) 2 tabs 03/10/2016 03/16/2016 Oral 100 mg 100 mg=2 tabs, Oral, q6hr, PRN: Pain Moderate (4-6), 60 tabs, 0 Refill(s) mirtazapine(Remeron 15 mg oral tablet) 1 tabs 03/10/2016 03/16/2016 Oral 15 mg 15 mg=1 tabs, Oral, Bedtime (once a day), 30 tabs, 0 Refill(s) lisinopril(lisinopril) 1 tabs 03/11/2016 03/11/2016 Oral 10 mg 10 mg=1 tabs, Oral, Once tetrahydrozoline ophthalmic(Visine 0.05% ophthalmic solution) 2 drops 03/12/2016 03/16/2016 Eye- Both 2 drops, Eye-Both, BID, PRN: Dry Eyes lisinopril(lisinopril) 1 tabs 03/13/2016 03/13/2016 Oral 10 mg 10 mg=1 tabs, Oral, Once mirtazapine(Remeron) 2 tabs 03/15/2016 03/16/2016 Oral 30 mg 30 mg=2 tabs, Oral, Bedtime (once a day) mirtazapine(Remeron 15 mg oral tablet) 2 tabs 03/16/2016 03/16/2016 Oral 30 mg 30 mg=2 tabs, Oral, Bedtime (once a day), 60 tabs, 0 Refill(s) mirtazapine(Remeron 30 mg oral tablet) 1 tabs 03/16/2016 Oral 30 mg 30 mg=1 tabs, Oral, Bedtime (once a day), 30 tabs, 0 Refill(s) hydrOXYzine(hydrOXYzine hydrochloride 25 mg oral tablet) 1 tabs 03/16/2016 04/15/2016 Oral 25 mg 25 mg=1 tabs, Oral, q6hr, PRN: Anxiety, 90 tabs, 0 Refill(s) traMADol(Ultram 50 mg oral tablet) 2 tabs 03/16/2016 03/30/2016 Oral 100 mg 100 mg=2 tabs, Oral, q6hr, PRN: Pain Moderate (4-6), 30 tabs, 0 Refill(s) ketorolac(Toradol) 1 mL 03/20/2016 03/20/2016 IntraMuscular 30 mg 30 mg=1 mL, IntraMuscular, Once traMADol(traMADol) 1 tabs 03/20/2016 03/20/2016 Oral 50 mg 50 mg=1 tabs, Oral, Once cloNIDine(cloNIDine) 2 tabs 03/20/2016 03/20/2016 Oral 0.2 mg 0.2 mg=2 tabs, Oral, Once traMADol(traMADol 50 mg oral tablet) 1 tabs 03/20/2016 03/25/2016 Oral 50 mg 50 mg=1 tabs, Oral, q8hr, for 5 days, 15 tabs, 0 Refill(s) HydrOXYzine Pamoate 25 MG Oral Capsule UD 04/11/2016 06/07/2016 ORAL 25MG take one capsule up to 4x a day as needed for anxiety Mirtazapine 30 MG Oral Tablet UD 04/11/2016 06/07/2016 ORAL 30MG TAKE 1 TABLET AT BEDTIME. LORazepam(Ativan) 1 mL 06/05/2016 06/05/2016 IV Push 2 mg 2 mg=1 mL, IV Push, Once acetaminophen(acetaminophen) 2 tabs 06/05/2016 06/05/2016 Oral 1,000 mg 1,000 mg=2 tabs, Oral, Once, PRN: Headache aspirin(aspirin) 4 tabs 06/05/2016 06/05/2016 Oral 324 mg 324 mg=4 tabs, Oral, Once famotidine(Pepcid) 2 mL 06/05/2016 06/05/2016 IV Push 20 mg 20 mg=2 mL, IV Push, Once nitroglycerin(Nitrostat 0.4 mg sublingual tablet) 1 tabs 06/05/2016 SubLingual 0.4 mg 0.4 mg=1 tabs, SubLingual, q5min, not to exceed 3 doses/15 min--if pain persists, seek medical attention, PRN: as needed for chest pain, 1 bottles, 0 Refill(s) famotidine(Pepcid 20 mg oral tablet) 1 tabs 06/05/2016 Oral 20 mg 20 mg=1 tabs, Oral, BID, 60 tabs, 0 Refill(s) labetalol(labetalol) 2 mL 06/05/2016 06/06/2016 IV Push 10 mg 10 mg=2 mL, IV Push, Once, PRN: Hypertension/High Blood Pressure amLODIPine(amLODIPine) 1 tabs 06/05/2016 06/05/2016 Oral 5 mg 5 mg=1 tabs, Oral, Once lisinopril(lisinopril 20 mg oral tablet) 1 tabs 06/05/2016 Oral 20 mg 20 mg=1 tabs, Oral, Daily, 30 tabs, 0 Refill(s) HydrOXYzine Pamoate 25 MG Oral Capsule UD 06/06/2016 07/07/2016 ORAL 25MG take one capsule up to 4x a day as needed for anxiety Mirtazapine 30 MG Oral Tablet UD 06/06/2016 07/07/2016 ORAL 30MG TAKE 1 TABLET AT BEDTIME. ibuprofen(ibuprofen) 1 tabs 07/06/2016 07/06/2016 Oral 800 mg 800 mg=1 tabs, Oral, Once acetaminophen(acetaminophen) 2 tabs 07/06/2016 07/06/2016 Oral 1,000 mg 1,000 mg=2 tabs, Oral, Once Problems Date Dx Coded Attending Type Code Diagnosis Diagnosed By 09/10/2015 JESSICA HANSEN V [id number] Suicidal JESSICA HANSEN 09/10/2015 JESSICA HANSEN P F33.2 Major depressive disorder, recurrent severe without psychotic features JESSICA HANSEN 09/10/2015 JESSICA HANSEN V F39 Unspecified mood (affective) disorder JESSICA HANSEN 09/10/2015 JESSICA HANSEN V I10 Essential (primary) hypertension JESSICA HANSEN 09/10/2015 JESSICA HANSEN V R52 Pain, unspecified JESSICA HANSEN 09/10/2015 JESSICA HANSEN V Z72.0 Tobacco use JESSICA HANSEN 03/21/2016 F E11 Type 2 diabetes mellitus Monika Hughes 03/21/2016 F F10.20 Alcohol dependence, uncomplicated Psy, Batch 03/21/2016 F F15.20 Other stimulant dependence, uncomplicated Psy, Batch 03/22/2016 F F33.2 Major depressive disorder, recurrent severe without psychotic features Psy, Batch 03/22/2016 F F10.20 Alcohol dependence, uncomplicated Ellen, Monika Verdugo 03/22/2016 F F15.20 Other stimulant dependence, uncomplicated Shafter, Monika Verdugo 03/22/2016 F F33.2 Major depressive disorder, recurrent severe without psychotic features Ellen, Monikablanca Verdugo 03/22/2016 F I10 Essential (primary) hypertension Ellen Monikablanca Verdugo 03/22/2016 F Z56.0 Unemployment, unspecified Ellen Monikablanca Verdugo 03/22/2016 F Z59.1 Inadequate housing Ellen Monikablanca Verdugo 03/22/2016 F Z59.5 Extreme poverty Ellen Monikablanca Verdugo 03/22/2016 F Z65.3 Problems related to other legal circumstances Monika Hughes 03/23/2016 Aftab Chung Final F17.200 Nicotine dependence, unspecified, uncomplicated 03/23/2016 Aftab Chung Final G89.29 Other chronic pain 03/23/2016 Aftab Chung Final I10 Essential (primary) hypertension 03/23/2016 Aftab Chung Reason M54.5 Low back pain 04/11/2016 F F33.2 Major depressive disorder, recurrent severe without psychotic features Alexander, Chavez L 04/11/2016 F F10.20 Alcohol dependence, uncomplicated Alexander, Chavez L 04/11/2016 F F15.20 Other stimulant dependence, uncomplicated Alexander, Chavez L 04/11/2016 F Z56.0 Unemployment, unspecified Alexander, Chavez L 04/11/2016 F F10.20 Alcohol dependence, uncomplicated Psy, Batch 04/11/2016 F F15.20 Other stimulant dependence, uncomplicated Psy, Batch 04/11/2016 F Z56.0 Unemployment, unspecified Psy, Batch 04/11/2016 F F33.2 Major depressive disorder, recurrent severe without psychotic features Psy, Batch 04/11/2016 F F10.20 Alcohol dependence, uncomplicated Shafter, Monika Ricoe 04/11/2016 F F15.20 Other stimulant dependence, uncomplicated Ellen, Monikablanca Ricoe 04/11/2016 F F33.2 Major depressive disorder, recurrent severe without psychotic features Ellen, Monikablanca Ricoe 04/11/2016 F I10 Essential (primary) hypertension Shafter, Monikablanca Ricoe 04/11/2016 F Z56.0 Unemployment, unspecified Ellen, Monika Ricoe 04/11/2016 F Z59.1 Inadequate housing Ellen, Monika Ricoe 04/11/2016 F Z59.5 Extreme poverty Shafter, Monika Ricoe 04/11/2016 F Z65.3 Problems related to other legal circumstances Shafter, Monika Ricoe 06/05/2016 F E11 Type 2 diabetes mellitus Le, Benjamen 06/05/2016 F F10.20 Alcohol dependence, uncomplicated Yarely, Aparna D 06/05/2016 F F15.20 Other stimulant dependence, uncomplicated YarelyAparna D 06/05/2016 F Z56.0 Unemployment, unspecified Yarely, Aparna D 06/06/2016 F F33.2 Major depressive disorder, recurrent severe without psychotic features Lies, Brittney F 06/06/2016 F F10.20 Alcohol dependence, uncomplicated Lies, Brittney F 06/06/2016 F F15.20 Other stimulant dependence, uncomplicated Lies, Brittney F 06/06/2016 F Z56.0 Unemployment, unspecified Lies, Brittney F 06/06/2016 F F10.20 Alcohol dependence, uncomplicated Psy, Batch 06/06/2016 F F15.20 Other stimulant dependence, uncomplicated Psy, Batch 06/06/2016 F Z56.0 Unemployment, unspecified Psy, Batch 06/06/2016 F F33.2 Major depressive disorder, recurrent severe without psychotic features Psy, Batch 06/06/2016 F F10.20 Alcohol dependence, uncomplicated Le, Benjamen 06/06/2016 F F15.20 Other stimulant dependence, uncomplicated Le, Benjamen 06/06/2016 F F33.2 Major depressive disorder, recurrent severe without psychotic features Le, Benjamen 06/06/2016 F I10 Essential (primary) hypertension Le, Benjamen 06/06/2016 F Z56.0 Unemployment, unspecified El, Benjamen 06/06/2016 F Z59.1 Inadequate housing Le, Benjamen 06/06/2016 F Z59.5 Extreme poverty Le, Benjamen 06/06/2016 F Z65.3 Problems related to other legal circumstances Le, Benjamen 06/06/2016 F F33.2 Major depressive disorder, recurrent severe without psychotic features Ken, Radha C 06/06/2016 F F10.20 Alcohol dependence, uncomplicated Ken, Radha C 06/06/2016 F F15.20 Other stimulant dependence, uncomplicated Ken, Radha C 06/06/2016 F Z56.0 Unemployment, unspecified Ken, Radha C 06/06/2016 F F10.20 Alcohol dependence, uncomplicated Psy, Batch 06/06/2016 F F15.20 Other stimulant dependence, uncomplicated Psy, Batch 06/06/2016 F Z56.0 Unemployment, unspecified Psy, Batch 06/06/2016 F F33.2 Major depressive disorder, recurrent severe without psychotic features Psy, Batch 06/06/2016 F F10.20 Alcohol dependence, uncomplicated Le, Benjamen 06/06/2016 F F15.20 Other stimulant dependence, uncomplicated Le, Benjamen 06/06/2016 F F33.2 Major depressive disorder, recurrent severe without psychotic features Le, Benjamen 06/06/2016 F I10 Essential (primary) hypertension Le, Benjamen 06/06/2016 F Z56.0 Unemployment, unspecified Le, Benjamen 06/06/2016 F Z59.1 Inadequate housing Le, Benjamen 06/06/2016 F Z59.5 Extreme poverty Le, Benjamen 06/06/2016 F Z65.3 Problems related to other legal circumstances Le, Benjamen 06/06/2016 F F10.20 Alcohol dependence, uncomplicated Psy, Batch 06/06/2016 F F15.20 Other stimulant dependence, uncomplicated Psy, Batch 06/06/2016 F Z56.0 Unemployment, unspecified Psy, Batch 06/06/2016 F F33.2 Major depressive disorder, recurrent severe without psychotic features Joesph, Kathy 06/06/2016 F F10.20 Alcohol dependence, uncomplicated Joesph, Kathy 06/06/2016 F F15.20 Other stimulant dependence, uncomplicated Joesph, Kathy 06/06/2016 F Z56.0 Unemployment, unspecified Joesph, Kathy 06/06/2016 F F10.20 Alcohol dependence, uncomplicated Psy, Batch 06/06/2016 F F15.20 Other stimulant dependence, uncomplicated Psy, Batch 06/06/2016 F Z56.0 Unemployment, unspecified Psy, Batch 06/06/2016 F F33.2 Major depressive disorder, recurrent severe without psychotic features Lipscom, Oreland 06/06/2016 F F10.20 Alcohol dependence, uncomplicated Lipscom, Wu 06/06/2016 F F15.20 Other stimulant dependence, uncomplicated Lipscom, Oreland 06/06/2016 F Z56.0 Unemployment, unspecified Lipscom, Oreland 06/06/2016 F F10.20 Alcohol dependence, uncomplicated Psy, Batch 06/06/2016 F F15.20 Other stimulant dependence, uncomplicated Psy, Batch 06/06/2016 F Z56.0 Unemployment, unspecified Psy, Batch 06/06/2016 F F33.2 Major depressive disorder, recurrent severe without psychotic features Psy, Batch 06/06/2016 F F33.2 Major depressive disorder, recurrent severe without psychotic features Psy, Batch 06/06/2016 F F10.20 Alcohol dependence, uncomplicated Le, Benjamen 06/06/2016 F F15.20 Other stimulant dependence, uncomplicated Le, Benjamen 06/06/2016 F F33.2 Major depressive disorder, recurrent severe without psychotic features Le, Benjamen 06/06/2016 F I10 Essential (primary) hypertension Le, Benjamen 06/06/2016 F Z56.0 Unemployment, unspecified Le, Benjamen 06/06/2016 F Z59.1 Inadequate housing Le, Benjamen 06/06/2016 F Z59.5 Extreme poverty Le, Benjamen 06/06/2016 F Z65.3 Problems related to other legal circumstances Le, Benjamen 06/06/2016 F F33.2 Major depressive disorder, recurrent severe without psychotic features Barnard, Tim 06/06/2016 F F10.20 Alcohol dependence, uncomplicated Barnard, Tim 06/06/2016 F F15.20 Other stimulant dependence, uncomplicated Barnard, Tim 06/06/2016 F Z56.0 Unemployment, unspecified Barnard, Tim 06/06/2016 F F33.2 Major depressive disorder, recurrent severe without psychotic features Barnard, Tim 06/06/2016 F F10.20 Alcohol dependence, uncomplicated Barnard, Tim 06/06/2016 F F15.20 Other stimulant dependence, uncomplicated Barnard, Tim 06/06/2016 F Z56.0 Unemployment, unspecified Barnard, Tim 06/07/2016 F F33.2 Major depressive disorder, recurrent severe without psychotic features Psy, Batch 06/07/2016 F F33.2 Major depressive disorder, recurrent severe without psychotic features Aparna Pritchett 06/07/2016 Heaton Jacob Final 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, unspecified with unspecified alcohol-induced disorder 06/07/2016 Heaton Jacob Final F17.200 Nicotine dependence, unspecified, uncomplicated 06/07/2016 Heaton Jacob Reason R07.89 Other chest pain 06/07/2016 Heaton Jacob Final R45.851 Suicidal ideations 06/07/2016 Heaton Jacob Final Z79.899 Other shelter (current) drug therapy 07/07/2016 Bhakta Michael Final E11.9 Type 2 diabetes mellitus without complications 07/07/2016 Bhakta Michael Final F17.200 Nicotine dependence, unspecified, uncomplicated 07/07/2016 Bhakta Michael Final F32.9 Major depressive disorder, single episode, unspecified 07/07/2016 Bhakta Michael Reason M79.601 Pain in right arm 07/07/2016 Bhakta Michael Final S50.01XA Contusion of right elbow, initial encounter 07/07/2016 Bhakta Michael Final S50.311A Abrasion of right elbow, initial encounter 07/07/2016 Bhakta Michael Final W10.8XXA Fall (on) (from) other stairs and steps, initial encounter 07/07/2016 Bhakta Michael Final Y92.[address] the place of occurrence of the external c 07/07/2016 Bhakta Michael Final Z79.84 [facility] (current) use of oral hypoglycemic drugs 07/07/2016 Bhakta Michael Final Z79.899 Other manager long term care (current) drug therapy Procedures Code Description Performed By Performed On 24.0 GUM OR ALVEOLAR INCISION Robert Anderson DO 02/23/2013 [id number] Ellen Monika Lucina 03/21/2016 13903 Monika Hughes 03/21/2016 [id number] OFFICE/OUTPATIENT VISIT, EST Barry, Luree Holli 04/11/2016 65533 OFFICE/OUTPATIENT VISIT, EST Walton, Luree Holli 04/11/2016 H2011 Le, Benjamen 06/05/2016 H2011 Lies, Brittney F 06/06/2016 H2011 Lies, Brittney F 06/06/2016 H2011 Lipscom, Wu 06/06/2016 22793 OFFICE/OUTPATIENT VISIT, EST KenElmer reeda C 06/06/2016 99942 OFFICE/OUTPATIENT VISIT, EST KenElmera C 06/06/2016 H2011 Lipscom, Oreland 06/06/2016 H2011 Kathy Pink 06/06/2016 H2011 Evon, Tim 06/06/2016 H2011 Evon, Tim 06/06/2016 Results Test Result Range URINALYSIS, ROUTINE - 02/01/14 13:28 UA LEUKOCYTE ESTERASE DIPSTICK NEGATIVE NEGATIVE UA NITRITE DIPSTICK NEGATIVE NEGATIVE UA PROTEIN DIPSTICK NEGATIVE NEGATIVE UA GLUCOSE DIPSTICK NEGATIVE NEGATIVE UA KETONE DIPSTICK NEGATIVE NEGATIVE UA UROBILINOGEN DIPSTICK NORMAL NORMAL UA BILIRUBIN DIPSTICK NEGATIVE NEGATIVE UA BLOOD DIPSTICK 2+ NEGATIVE UA SPECIFIC GRAVITY 1.020 1.015-1.025 UR PH 5.0 5.0-7.0 UA MICROSCOPIC - 02/01/14 13:28 UA BACTERIA 1+ NEGATIVE UA EPITHELIAL CELLS 1+ epi/hpf 0 - 1+ UA MUCUS 1+ NEG TO 1+ UA RBC 5-10 rbc/hpf 0 - 3 UA VOLUME FOR EXAM 12.0 mL (12mL STD) UA WBC 0-1 wbc/hpf 0 - 5 CREATININE - 02/01/14 14:30 EST GFR (MDRD) > 60 mL/min > 59 CREATININE 0.9 mg/dL 0.8-1.3 CBC With Platelet and Differential - 07/26/17 09:52 Absolute Basophils 0.02 10*3/uL 0.00-0.20 Absolute Eosinophils 0.12 10*3/uL 0.00-0.50 Absolute Lymphocytes 1.33 10*3/uL 0.80-3.30 Absolute Monocytes 0.81 10*3/uL 0.30-1.00 Absolute Neutrophils 7.80 10*3/uL 1.90-7.00 Basophils 0 % 0-2 Eosinophils 1 % 0-4 HCT 42.4 % 42.0-52.0 HGB 14.2 g/dL 14.0-18.0 Immature Granulocytes 0.4 % 0.0-1.0 Lymphocytes 13 % 20-46 MCH 29.6 pg 27.0-32.0 MCHC 33.5 g/dL 32.0-36.0 MCV 88.5 fL 82.0-99.0 Monocytes 8 % 4-11 MPV 9.8 fL 9.4-12.3 Neutrophils 77 % 51-75 Nucleated RBC Automated 0.0 /100 WBC Platelet Count 266 K/uL 150-400 RBC 4.79 10*6/uL 4.60-6.20 RDW 14.5 % 11.5-14.5 WBC 10.1 K/uL 4.8-10.8 Urinalysis with reflex microscopic - 07/26/17 09:52 Appearance Clear NA Bilirubin Negative NA Negative Blood Negative NA Negative Color Straw NA Glucose, Urine Negative Negative Ketones Negative Negative Leukocyte Esterase Negative NA Negative Nitrites Negative NA Negative pH 7.0 NA 5.0-8.0 Protein Negative NA Negative Specific [place] <1.003 NA 1.003-1.030 UA Collection type Clean Catch NA Urobilinogen Negative mg/dL <1.0 Acetaminophen - 07/26/17 09:52 Acetaminophen <10 mcg/mL 10-30 Comprehensive Metabolic Panel (CMP) - 07/26/17 09:52 Albumin 3.9 g/dL 3.5-4.8 Alkaline Phosphatase 51 U/L 26-104 ALT (SGPT) 14 U/L 17-63 Anion Gap 8 mEq/L 3-20 AST (SGOT) 22 U/L 15-41 Bilirubin Total 0.6 mg/dL 0.2-1.2 BUN 7 mg/dL 4-20 Calcium 9.0 mg/dL 8.6-10.0 Chloride 102 mEq/L 99-109 CO2 27 mEq/L 22-32 Creatinine 0.78 mg/dL 0.64-1.27 Globulin 2.8 g/dL 1.9-4.3 Glucose 100 mg/dL 70-100 Potassium 3.8 mEq/L 3.6-5.1 Protein 6.7 g/dL 6.1-7.9 Sodium 137 mEq/L 136-144 Urine Drug Screen - 07/26/17 09:52 Amph/Meth/Ecstasy Positive NA Barbiturates Negative NA Benzodiazepine Negative NA Cannabinoid Positive NA Cocaine Negative NA EDDP (Methadone met.) Negative NA Opiate Negative NA Phencyclidine (PCP) Negative NA Alcohol, Blood - 07/26/17 09:52 Alcohol, Blood Not Detected mg/dL Salicylate - 07/26/17 09:52 Salicylate 4 mg/dL 0-30 eGFR - 07/26/17 09:52 eGFR >60 mL/min >60 Radiology Report from [facility] on 06/10/2012 11:31:00 DIAGNOSTIC IMAGING REPORT [facility] - [address] [place] [address] PHONE #: [phone] FAX #: [phone] Name: ADOLPH HOBSON Loc: [facility] Radiology No: [id number] : 1965 Age: 46 Sex: M Status: DEP ER Unit No: [id number] Phys: Fernandez Suarez DO Acct: [id number] Reason For Exam: sob/cough/fever Exam Date: 06/09/2012 EXAMS: CPT CODE: [id number] CHEST AP/PA ONLY [id number] TIME OF STUDY: 06/10/2012 12:11 AM REASON FOR EXAM: sob/cough/fever COMPARISON: 12/03/2009 FINDINGS: AP view of the chest was obtained. Lungs: No pulmonary n odule, mass, or consolidation. Normal lung volume. Normal pulmonary vascularity. Pleura: No pleural effusion. No pneumothorax. Heart and Mediastinum: Normal cardiomediastinal silhouette. The great vessels are unremarkable. Bones: Bony structures are age-appropriate. IMPRESSION: 1. No focal consolidation. I have personally reviewed these images and approved or corrected the resident physician's interpretation. at 1126 RESIDENT: MANJIT SMYTH MD Reported and signed by: CASA MAYEN MD CC: Technologist: PILAR DELANEY; LATRICIA TENA Transcribed Date/Time: 06/10/2012 (4731)Lacing Operator: [email or web address] Printed Date/Time: 06/10/2012 (9319) BATCH NO: N/A PAGE 1 Signed Report Radiology Report from MIKKI on 02/01/2014 16:25:00 DIAGNOSTIC IMAGING REPORT [facility] - [address] [place] [address] PHONE #: [phone] FAX #: [phone] Name: ADOLPH HOBSON [facility] Rad[facility] No: [id number] : 1965 Age: 48 Sex: M Status: REG ER Unit No: [id number] Phys: Gabriela Ramachandran Acct: [id number] Reason For Exam: left inguinal pain Exam Date: 02/01/2014 EXAMS: CPT CODE: [id number] CT ABD/PELVIS WITH CONTRAST 48813 REASON FOR EXAM: left inguinal pain . Time of the current examination: 02/01/2014 3:17 PM COMPARISON: 02/07/2005 TECHNIQUE: Helical post contrast enhanced images were obtained through the abdomen and post contrast helical images were obtained through the pelvis. FINDINGS: CT Abdomen: The included lung bases demonstrate subsegmental atelectasis. The liver, spleen, pancreas, adrenal glands and kidneys all have normal appearance. There is no mesenteric or retroperitoneal adenopathy. The bowel loops are nondilated. A normal appendix is visualized. There is no inflammation in the right lower quadrant. There is no free fluid or free air. Infrarenal abdominal aortic aneurysm is present with maximal dimensions of 3.6 x 3.5 cm (image 47 series 3). No perianeurysmal hematoma or inflammation is seen. On the previous examination the maximal aortic dimension was 2.4 x 2.3 cm. The osseous structures are age-appropriate. CT Pelvis: Ureters and bladder are grossly normal. Colonic diverticulosis is present without diverticulitis. There is no free air, free fluid, loculated collection or adenopathy in the pelvis. Postoperative changes are noted in the lower anterior abdominal wall. There maybe a small recurrent left inguinal hernia containing fat (image 80 series 2). The osseous and soft tissue structures are age appropriate. IMPRESSION: 1. Infrarenal abdominal aortic aneurysm with maximal dimensions of 3.6 x 3.5 cm. No perianeurysmal hematoma or inflammation. 2. No renal or ureteral calculi. No hydronephrosis. 3. Colonic diverticulosis without diverticulitis. 4. Postoperative changes in the lower anterior abdominal wall. PAGE 1 Signed Report (CONTINUED) DIAGNOSTIC IMAGING REPORT [facility] - [address] [place] [address] PHONE #: [phone] FAX #: [phone] Name: ADOLPH HOBSON Loc: [facility] Radiology No: [id number] : 1965 Age: 48 Sex: M Status: REG ER Unit No: [id number] Phys: Gabriela Ramachandran Acct: [id number] Reason For Exam: gianna for Exam: left inguinal pa Exam Date: 02/01/2014 EXAMS: CPT CODE: [id number] CT ABD/PELVIS WITH CONTRAST 59019 <Continued> Possible small recurrent left inguinal hernia containing fat. Findings were discussed with Dr. Rome on 02/01/2014 4:09 PM. at 6954 Reported and signed by: JAMARI LOWERY MD CC: Aleksandra Martinez DO; Russel Rome MD Technologist: KALLIE DANIELS Transcribed Date/Time: 02/01/2014 (5051)Lacing Operator: [email or web address] Printed Date/Time: 02/01/2014 (1518) BATCH NO: N/A PAGE 2 Signed Report Radiology Report from [facility] on 10/20/2014 07:04:00 DIAGNOSTIC IMAGING REPORT [facility] - [address] [address] PHONE #: [phone] FAX #: [phone] Name: ADOLPH HOBSON Loc: [facility] Radiology No: [id number] : 1965 Age: 48 Sex: M Status: REG ER Unit No: [id number] Phys: Trey Hernandez MD Acct: [id number] Reason For Exam: right fifth digit Exam Date: 10/20/2014 EXAMS: CPT CODE: [id number] FINGER RIGHT 34192 REASON FOR EXAM: Trauma right fifth digit. TIME OF EXAM: 10/20/2014 6:35 AM COMPARISON: None Findings: 3 views of right finger show no acute fracture or dislocat ion. Mild soft tissue swelling is seen at the tip of the right fifth finger. No radiopaque foreign bodies visualized. Impression: 1. No acute fracture or dislocation in right fifth finger. 2. Soft tissue swelling tip of right fifth finger. at 0658 Reported and signed by: MAICOL SAINZ MD CC: Trey Das MD Technologist: RICKIE STEINER Transcribed Date/Time: 10/20/2014 (0658)Lacing Operator: KENNETH Printed Date/Time: 10/20/2014 (0704) BATCH NO: N/A PAGE 1 Signed Report Radiology Report from [id number] on 06/05/2016 13:24:00 Reason For ExamChest painREPORTINDICATION: Chest pain.TECHNIQUE: Single view chest 1:15 PM.CORRELATION STUDY: 07/20/2003FINDINGS:The heart size, mediastinal configuration and pulmonary vascularity arerelatively stable. Slight prominent appearance of the ascending aorta. Thelungs are clear with no consolidating infiltrate. There is no significanteffusion or pneumothorax.IMPRESSION:1. Stable portable chest.Dictated on workstation:[id number] Line FINAL DICTATED BY: HAYDER TARANGO DODICTATED DT/TM: 06/05/2016 1:21 PMSIGNED BY: HAYDER TARANGO DOSIGNED (ELECTRONIC SIGNATURE): 06/05/2016 1:22 PMTECHNOLOGIST: BRANDY KLINE RT(R) Radiology Report from [id number] on 07/06/2016 09:06:00 Reason For ExamPain in joint, elbow/upper armREPORTINDICATION: Fall with right elbow pain.TECHNIQUE: AP, oblique, and lateral views of the right elbow are obtained.COMPARISONS: None available.FINDINGS:No acute fracture or traumatic malalignment. Specifically, no radial headfracture is identified. No elbow joint effusion. Normal osseous mineralization.Joint space of the elbow is well maintained without marginal erosions.IMPRESSION:No acute fracture or traumatic malalignment involving the right elbow.Dictated on workstation:[id number] Line PRELIMINARY DICTATED BY: GEORGE DAVALOS MDDICTATED DT/TM: 07/06/2016 9:03 Encounters ACCT No. Visit Date/Time Discharge Status Pt. Type Provider Facility Loc./Unit Complaint [id number] 06/05/2016 21:50:00 06/05/2016 22:20:00 DIS Unknown [id number] 08/29/2015 11:11:00 08/29/2015 12:01:00 DIS Emergency Clyde Escobedo DO [facility].ED [id number] 04/17/2015 11:24:00 04/17/2015 12:15:00 DIS Emergency Clem MACKAY, [facility] [id number] 12/07/2014 19:54:00 12/07/2014 20:32:00 DIS [id number] 10/20/2014 06:19:00 10/20/2014 07:09:00 [id number] 02/01/2014 12:17:00 02/01/2014 16:50:00 [id number] 06/04/2013 16:30:00 06/04/2013 17:23:00 DIS Emergency Justin CAMARA, [facility] W.EDW [id number] 05/18/2013 15:15:00 05/18/2013 16:17:00 DIS Emergency Alba MACKAY, [facility] WEDW [id number] 02/23/2013 13:52:00 02/23/2013 14:55:00 DIS [id number] 01/16/2013 19:29:00 01/16/2013 19:59:00 DIS Emergency Aubrey MACKAY, [facility] W.EDW [id number] 11/25/2012 19:44:00 11/25/2012 20:47:00 DIS Emergency [facility] [id number] 10/15/2012 20:24:00 10/15/2012 23:19:00 DIS [facility] [id number] 06/09/2012 23:13:00 06/10/2012 01:50:00 DIS Emergency [facility] [id number] 12/26/2011 14:59:00 12/26/2011 16:09:00 DIS [id number] 07/26/2017 08:34:00 07/26/2017 23:59:59 CLS Emergency Heaton Jacob [facility] on [facility] ED eval [id number] 07/06/2016 08:26:00 07/06/2016 10:11:00 DIS Emergency Bhakta Michael [facility] on [facility] ED fell and hurt right elbow [id number] 06/05/2016 12:14:00 06/05/2016 22:39:00 DIS Emergency Heaton Jacob [facility] ED chest pain [id number] 03/20/2016 13:17:00 03/20/2016 15:34:00 DIS Emergency Aftab Chung [facility] on [facility] ED chronic back pain [id number] 03/05/2016 00:05:00 03/05/2016 23:59:59 [facility] Emergency Artis Denise [facility] on [facility] ED si, assessment [id number] 09/05/2015 17:04:00 09/05/2015 23:59:59 [facility] Emergency Georgette Ferraro [facility] on [facility] ED DEPRESSION [id number] 07/07/2016 05:16:34 Document Registration [id number] 06/06/2016 05:16:13 Document Registration [id number] 03/21/2016 05:16:10 Document Registration [id number] 03/17/2016 05:17:48 Document Registration [id number] 03/15/2016 05:18:51 Document Registration [id number] 03/14/2016 05:16:09 Document Registration [id number] 03/13/2016 05:16:20 Document Registration [id number] 03/12/2016 05:17:52 Document Registration [id number] 03/11/2016 05:18:26 Document Registration [id number] 03/10/2016 05:17:46 Document Registration [id number] 03/09/2016 05:17:42 Document Registration [id number] 03/08/2016 05:18:32 Document Registration [id number] 03/07/2016 05:16:13 Document Registration [id number] 03/06/2016 05:16:34 Document Registration [id number] 09/07/2015 05:15:50 Document Registration [id number] 09/06/2015 05:15:55 Document Registration [id number] 11/23/2018 16:20:00 11/23/2018 23:59:59 [facility] Outpatient WEIR[facility] [id number] 09/06/2015 22:43:00 09/10/2015 13:50:00 DIS Inpatient JESSICA HANSEN [facility] [id number] 09/06/2015 23:59:35 Document Registration [id number] 02/18/2013 19:27:00 02/18/2013 23:59:59 [facility] Emergency Darnell Disla MD [facility] on Raheel WEINER
[2018-12-10 13:01] LABS: BACTERIA,URINE NEGATIVE /HPF; RBC,URINE 0-2 /HPF; SQUAMOUS EPITHELIAL CELL,UR RARE /HPF
--- NOTE | 2018-12-10 13:01 | NUR ---
"I THINK I NEED SOME MENTAL HELP. THIS HAS BEEN AN ON GOING THING." STATES THAT HE HAS A NEW CHILD AND THAT THERE IS SOMETHING WRONG WITH SOMEONE THAT WANTS TO KILL THEMSELF AFTER HAVING A CHILD.
[2018-12-10 13:07] LABS: AMPHETAMINE SCREEN, URINE NEGATIVE (NEGATIVE); BARBITURATE SCREEN URINE NEGATIVE (NEGATIVE); BENZODIAZEPINES SCREEN URINE NEGATIVE (NEGATIVE); CANNABINOID SCREEN, URINE NEGATIVE (NEGATIVE); COCAINE SCREEN URINE NEGATIVE (NEGATIVE); METHADONE STAT NEGATIVE (NEGATIVE); METHAMPHETAMINE SCREEN URINE S NEGATIVE (NEGATIVE); OPIATE SCREEN URINE NEGATIVE (NEGATIVE); OXYCODONE STAT NEGATIVE (NEGATIVE); PROPOXYPHENE STAT NEGATIVE (NEGATIVE); TRICYCLIC ANTIDEPRESSANTS SCRE NEGATIVE (NEGATIVE)
--- NOTE | 2018-12-10 13:26 | ED Psychosocial ---
General Chief Complaint: Psych/Social Disorder Stated Complaint: SUICIDAL Nursing Triage Note: DRINKING HEAVY THE LAST 3 DAYS, FEELING SUICIDAL. HX OF ETOH, WAS CLEAN FOR 6-7 MONTHS, NOT SURE WHY HE STARTED DRINKING AGAIN. HAS HAD THOUGHTS OF HURTING HIMSELF FOR A LONG TIME. 3 MONTH OLD BABY BOY. HAS HAD LT LEG PAIN BEHIND THE KNEE. HAS NOT LIKED HIS LIVING ARANGEMENT, LIVING WITH HIS GIRLFRIENDS FRIEND. HX OF DX OF MAJOR DEPRESSIVE DISORDER, BEEN IN [facility] TWICE LAST YEAR FOR THIS. (STEPHAN BALDERAS) History of Present Illness Date Seen by Provider: Dec 10, 2018 Time Seen by Provider: 13:10 Initial Comments Here with suicidal thoughts. Heavy drinking the last 3 days, but he had been clean of drinking the previous 6-7 months. He was working with an AA group in [place] but recently moved and discontinued the program. He has had the suicidal thoughts for a long time with a previous attempt around a year ago. He is looking for a structured environment to help keep in on the right path and feels if he goes back out on his own he will not make it. Timing/Duration: constant, changing over time, other Severity: moderate, severe Associated Symptoms: suicidal ideation, other Alcoholism and depression (STEPHAN BALDERAS) Initial Comments Here with report of suicidal thoughts that have increased recently. He states that he has a lot of stuff in his past that is needing to be addressed and reports that it's likely the cause of these increased thoughts. Has had previous suicide attempt by cutting his wrist. States that he is in a hotel this weekend and then as drinking and he did have a knife and was contemplating suicide again. He believes if he does not get help he will commit suicide. He is willing to voluntarily admit to any psychiatric facility to get help. (AMBROSIO BURKETT MD) Allergies and Home Medications Allergies Coded Allergies: No Known Drug Allergies (Unverified , 10/07/18) Home Medications Hydrocodone Bit/Acetaminophen 1 Tab Tab, 1 EACH PO Q4-6HR PRN for PAIN-MODERATE Prescribed by: RANDALL KERN on 10/07/18 1622 Patient Home Medication List Home Medication List Reviewed: Yes (AMBROSIO BURKETT MD) Review of Systems Constitutional: no symptoms reported EENTM: no symptoms reported Respiratory: cough, dyspnea on exertion, short of breath, wheezing Cardiovascular: no symptoms reported Gastrointestinal: No nausea, No vomiting Genitourinary: no symptoms reported Musculoskeletal: muscle pain, other Skin: no symptoms reported Psychiatric/Neurological: Depressed, Emotional Problems Left calf pain present for a couple months. Was scheduled for an ultrasound today for the calf pain. Numbness in 3rd and 4th left toes associated with the calf pain. (STEPHAN BALDERAS) All Other Systems Reviewed Negative Unless Noted: Yes (AMBROSIO BURKETT MD) Past Ffcdvbz-Sggsqt-Oylscb Hx Past Med/Social Hx: Reviewed Nursing Past Med/Soc Hx (AMBROSIO BURKETT MD) Patient Social History Alcohol Use: Regular Use Number of Drinks Today: 4 Alcohol Beverage of Choice: Beer, Vodka Recreational Drug Use: No Smoking Status: Current Everyday Smoker Type Used: Cigarettes Recent Foreign Travel: No Contact w/Someone Who Travel: No Recent Infectious Disease Expo: No Recent Hopitalizations: No Physical Abuse: No Sexual Abuse: No Mistreated: No Fear: No (STEPHAN BALDERAS) Seasonal Allergies Seasonal Allergies: Yes (STEPHAN BALDERAS) Past Medical History Surgeries: Yes (FINGER RT HAND) Orthopedic Respiratory: No Cardiac: Yes High Cholesterol, Hypertension Neurological: No Genitourinary: No Gastrointestinal: No Musculoskeletal: No Endocrine: No HEENT: No Cancer: No Psychosocial: Yes (SEVERE DEPRESSIVE DISORDER) ADD/ADHD, Anxiety, Depression Nursing Suicide Risk Notes: THOUGHTS OF KILLING HIMSELF, TRIED TO CUT HIMSELF OVER A YEAR AGO. HAS A RAZOR IN HIS BAG. Integumentary: No (STEPHAN BALDERAS) Family Medical History Reviewed Nursing Family Hx (AMBROSIO BURKETT MD) Physical Exam Vital Signs - First Documented 12/10/18 12:34 Temp 98.2 Pulse 92 Resp 20 B/P (MAP) 122/79 (93) Pulse Ox 96 O2 Delivery Room Air (AMBROSIO BURKETT MD) Capillary Refill : Less Than 3 Seconds (STEPHAN BALDERAS) Height, Weight, BMI Height: 5'2.00" Weight: 150lbs. oz. 68.997930xo; BMI Method:Stated General Appearance: mild distress Respiratory: chest non-tender, no respiratory distress, wheezing Cardiovascular: normal peripheral pulses, regular rate, rhythm, no edema, no gallop, no JVD, no murmur Peripheral Pulses: 2+ Dorsalis Pedis (R), 2+ Left Dors-Pedis (L), 2+ Radial Pulses (R), 2+ Radial Pulses (L) Extremities: normal inspection, no pedal edema, calf tenderness Neurologic/Psychiatric: no motor/sensory deficits, alert, oriented x 3 Appearance/Memory: appropriate appearance, appropriate insight Behavior/Eye Contact: cooperative, normal speech, avoids eye contact Thoughts/Hallucinations: normal thought pattern, no apparent hallucination Skin: normal color, warm/dry (ANDREY,STEPHAN MED STUDEN) General Appearance: WD/WN, mild distress HEENT: PERRL/EOMI, pharynx normal Neck: full range of motion, supple Respiratory: chest non-tender, no respiratory distress Cardiovascular: regular rate, rhythm, no murmur Extremities: non-tender, normal inspection, no pedal edema, other (posterior aspect of the leg behind knee.) Neurologic/Psychiatric: alert, oriented x 3 Appearance/Memory: appropriate appearance, appropriate insight Behavior/Eye Contact: cooperative, normal speech, avoids eye contact Thoughts/Hallucinations: normal thought pattern, no apparent hallucination Skin: normal color, warm/dry (AMBROSIO BURKETT MD) Progress/Results/Core Measures Results/Orders Lab Results Laboratory Tests Test 12/10/18 12:40 12/10/18 13:25 Range/Units Urine Color YELLOW Urine Clarity CLEAR Urine pH 5 5-9 Urine Specific [place] 1.010 L 1.016-1.022 Urine Protein NEGATIVE NEGATIVE Urine Glucose (UA) NEGATIVE NEGATIVE Urine Ketones NEGATIVE NEGATIVE Urine Nitrite NEGATIVE NEGATIVE Urine Bilirubin NEGATIVE NEGATIVE Urine Urobilinogen NORMAL NORMAL MG/DL Urine Leukocyte Esterase NEGATIVE NEGATIVE Urine RBC (Auto) 1+ H NEGATIVE Urine RBC 0-2 /HPF Urine WBC NONE /HPF Urine Squamous Epithelial Cells RARE /HPF Urine Crystals NONE /LPF Urine Bacteria NEGATIVE /HPF Urine Casts NONE /LPF Urine Mucus NEGATIVE /LPF Urine Culture Indicated NO Urine Opiates Screen NEGATIVE NEGATIVE Urine Oxycodone Screen NEGATIVE NEGATIVE Urine Methadone Screen NEGATIVE NEGATIVE Urine Propoxyphene Screen NEGATIVE NEGATIVE Urine Barbiturates Screen NEGATIVE NEGATIVE Ur Tricyclic Antidepressants Screen NEGATIVE NEGATIVE Urine Phencyclidine Screen NEGATIVE NEGATIVE Urine Amphetamines Screen NEGATIVE NEGATIVE Urine Methamphetamines Screen NEGATIVE NEGATIVE Urine Benzodiazepines Screen NEGATIVE NEGATIVE Urine Cocaine Screen NEGATIVE NEGATIVE Urine Cannabinoids Screen NEGATIVE NEGATIVE White Blood Count 8.7 4.3-11.0 10^3/uL Red Blood Count 4.54 4.35-5.85 10^6/uL Hemoglobin 13.1 L 13.3-17.7 G/DL Hematocrit 39 L 40-54 % Mean Corpuscular Volume 86 80-99 FL Mean Corpuscular Hemoglobin 29 25-34 PG Mean Corpuscular Hemoglobin Concent 34 32-36 G/DL Red Cell Distribution Width 14.5 10.0-14.5 % Platelet Count 259 130-400 10^3/uL Mean Platelet Volume 9.3 7.4-10.4 FL Neutrophils (%) (Auto) 66 42-75 % Lymphocytes (%) (Auto) 24 12-44 % Monocytes (%) (Auto) 9 0-12 % Eosinophils (%) (Auto) 1 0-10 % Basophils (%) (Auto) 0 0-10 % Neutrophils # (Auto) 5.8 1.8-7.8 X 10^3 Lymphocytes # (Auto) 2.1 1.0-4.0 X 10^3 Monocytes # (Auto) 0.7 0.0-1.0 X 10^3 Eosinophils # (Auto) 0.1 0.0-0.3 10^3/uL Basophils # (Auto) 0.0 0.0-0.1 10^3/uL Sodium Level 138 135-145 MMOL/L Potassium Level 3.4 L 3.6-5.0 MMOL/L Chloride Level 104 98-107 MMOL/L Carbon Dioxide Level 19 L 21-32 MMOL/L Anion Gap 15 H 5-14 MMOL/L Blood Urea Nitrogen 9 7-18 MG/DL Creatinine 0.71 0.60-1.30 MG/DL Estimat Glomerular Filtration Rate > 60 BUN/Creatinine Ratio 13 Glucose Level 97 70-105 MG/DL Calcium Level 9.5 8.5-10.1 MG/DL Corrected Calcium 9.3 8.5-10.1 MG/DL Total Bilirubin 0.3 0.1-1.0 MG/DL Aspartate Amino Transf (AST/SGOT) 19 5-34 U/L Alanine Aminotransferase (ALT/SGPT) 13 0-55 U/L Alkaline Phosphatase 61 40-136 U/L Total Protein 7.0 6.4-8.2 GM/DL Albumin 4.3 3.2-4.5 GM/DL Salicylates Level < 5.0 L 5.0-20.0 MG/DL Acetaminophen Level < 10 L 10-30 UG/ML Serum Alcohol 106 H <10 MG/DL (AMBROSIO BURKETT MD) My Orders Orders - AMBROSIO BURKETT MD General/Regular (12/10/18 Lunch) Us Venous Lower Ext Lt (12/10/18 14:38) (AMBROSIO BURKETT MD) Vital Signs/I&O 12/10/18 12:34 Temp 98.2 Pulse 92 Resp 20 B/P (MAP) 122/79 (93) Pulse Ox 96 O2 Delivery Room Air (AMBROSIO BURKETT MD) Blood Pressure Mean: 93 Progress Progress Note : Progress Note I seen and evaluated the patient and agree with above except as indicated. I have directed the plan of care. Patient is here suicidal ideation and continued thoughts. Medical clearance initiated. 1442: We have ordered a ultrasound of the leg but otherwise medically clear for psychiatric referral. Patient states that the leg is really not a significant problem for him but we will go ahead and get ultrasound to look for Alvarez's cyst. I do not believe this is a blood clot as he has no findings consistent with that. He did have evaluation here for his knee 2 months ago which did not show any acute abnormalities on x-ray. We will initiate trying to find psychiatric facility. 1645: Tolerating a meal okay. Ultrasound negative for DVT or other concerns. Still pending evaluation for transfer to inpatient psychiatric facility. Monitor patient. 1711: Patient has been accepted at [place]. We will arrange transport. Patient agrees. Facility did not require doctor to doctor discussion as they reviewed physician notes. (AMBROSIO BURKETT MD) Initial ECG Impression Date: Dec 10, 2018 Initial ECG Impression Time: 13:36 Initial ECG Rate: 80 Initial ECG Rhythm: Normal Sinus Initial ECG Impression: Normal Comment Sinus rhythm with normal axis. No evidence of ST elevation [place]. No previous available for comparison. Interpreted by me. (AMBROSIO BURKETT MD) Diagnostic Imaging Diagonstic Imaging: Ultrasound Plain Films/CT/US/NM/MRI: leg Comments NAME: [facility] REC#: [id number] PT STATUS: REG ER : 1965 PHYSICIAN: AMBROSIO BURKETT MD ADMIT DATE: 12/10/18/ER Signed Date of Exam: 12/10/18 US VENOUS LOWER EXT LT PROCEDURE: US left lower extremity venous. TECHNIQUE: Multiple real-time grayscale images were obtained over the left lower extremity in various projections. Additional duplex Doppler and color Doppler images were also obtained. INDICATION: Left leg pain FINDINGS: The veins in the left leg have good color filling and compressibility. There is normal phasic flow and normal response to distal augmentation. IMPRESSION: Negative venous Doppler, left leg. Dictated by: Dictated on workstation # [id number] Dict: 12/10/18 1528 Trans: 12/10/18 1632 Interpreted by: AMBROSIO ALFARO MD Electronically signed by: AMBROSIO ALFARO MD 12/10/18 1632 (AMBROSIO BURKETT MD) Departure Impression Primary Impression: Suicidal ideation Additional Impression: Knee pain Qualified Codes: M25.562 - Pain in left knee; G89.29 - Other chronic pain Disposition: 02 XFER SHT-TRM HOSP Condition: Stable Transfer Transfer Time: 17:12 Transfer Facility: [place], [place] Method of Transfer: (AMBROSIO BURKETT MD) Departure-Patient Inst. Referrals: NO,LOCAL PHYSICIAN (PCP/Family) Primary Care Physician STEPHAN BALDERAS Dec 10, 2018 13:26 AMBROSIO BURKETT MD Dec 10, 2018 14:45
[2018-12-10 13:34] LABS: BASOPHILS % (AUTO) 0 % (0-10); EOSINOPHILS # (AUTO) 0.1 10^3/uL (0.0-0.3); EOSINOPHILS % (AUTO) 1 % (0-10); HEMATOCRIT 39 % (40-54); HEMOGLOBIN 13.1 G/DL (13.3-17.7); LYMPHOCYTES # (AUTO) 2.1 X 10^3 (1.0-4.0); LYMPHOCYTES % (AUTO) 24 % (12-44); MEAN CORPUSCULAR HEMOGLOBIN 29 PG (25-34); MEAN CORPUSCULAR HGB CONC 34 G/DL (32-36); MEAN CORPUSCULAR VOLUME 86 FL (80-99); MEAN PLATELET VOLUME 9.3 FL (7.4-10.4); MONOCYTES # (AUTO) 0.7 X 10^3 (0.0-1.0); MONOCYTES % (AUTO) 9 % (0-12); NEUTROPHILS # (AUTO) 5.8 X 10^3 (1.8-7.8); NEUTROPHILS % (AUTO) 66 % (42-75); PLATELET COUNT 259 10^3/uL (130-400); RED CELL DISTRIBUTION WIDTH 14.5 % (10.0-14.5); WHITE BLOOD COUNT 8.7 10^3/uL (4.3-11.0)
[2018-12-10 14:17] LABS: ALANINE AMINOTRANSFERASE 13 U/L (0-55); ALBUMIN 4.3 GM/DL (3.2-4.5); ALKALINE PHOSPHATASE 61 U/L (40-136); BILIRUBIN,TOTAL 0.3 MG/DL (0.1-1.0); BUN/CREATININE RATIO 13; CALCIUM 9.5 MG/DL (8.5-10.1); CARBON DIOXIDE 19 MMOL/L (21-32); CHLORIDE 104 MMOL/L (98-107); CREATININE SERUM 0.71 MG/DL (0.60-1.30); GFR ESTIMATED > 60; GLUCOSE 97 MG/DL (70-105); POTASSIUM 3.4 MMOL/L (3.6-5.0); SALICYLATE < 5.0 MG/DL (5.0-20.0); SODIUM 138 MMOL/L (135-145)
[2018-12-10 14:20] LABS: ACETAMINOPHEN < 10 UG/ML (10-30)
--- NOTE | 2018-12-10 14:50 | NUR ---
TRIED TO FIND A BED FOR PT. AHMET MELÉNDEZ WOULD NOT VERIFY FOR SURE IF THEY HAD A BED, TERRELL SAID NO, [facility] SAID THEY MIGHT HAVE AN OPENING AND ASK US TO FAX INFORMATION OVER. INFO FAXED AT THIS TIME.
--- NOTE | 2018-12-10 15:33 | Diagnostic Imaging Report ---
PROCEDURE: US left lower extremity venous. TECHNIQUE: Multiple real-time grayscale images were obtained over the left lower extremity in various projections. Additional duplex Doppler and color Doppler images were also obtained. INDICATION: Left leg pain FINDINGS: The veins in the left leg have good color filling and compressibility. There is normal phasic flow and normal response to distal augmentation. IMPRESSION: Negative venous Doppler, left leg. Dictated by: Dictated on workstation # [id number]
--- NOTE | 2018-12-10 15:43 | NUR ---
ASKED PT'S SIGNIFICANT OTHER, MINE, TO LOOK THROUGH HIS BACK PACK WITH THE PT IN THE ROOM TO LOOK FOR A RAZOR THAT THE PT SAID WAS IN THE BAG. ONE BOX KNIFE, ONE RAZOR, AND ONE PICTURE IN A FRAME WITH GLASS REMOVED AT THIS TIME AND TAKEN BY MINE.
--- NOTE | 2018-12-10 16:00 | NUR ---
[facility] CALLED TO CHECK ON BED AND IT WENT TO VOICE MAIL, MESSAGE LEFT.
--- NOTE | 2018-12-10 16:38 | NUR ---
CONTACTED [facility], THEY CONFIRMED THEY GOT THE FAX BUT ARE STILL NOT SURE IF THEY WILL BE ABLE TO ADMIT, ASKED ME TO CALL BACK IN 30-60 MIN.
[2018-12-10] MEDS ORDERED: KETOROLAC 30 MG/ML VIAL IVP STA (17:33)
--- NOTE | 2018-12-10 18:08 | NUR ---
MEAL TRAY GIVEN AT THIS TIME.
[2018-12-10 19:15] VITALS: BP 135/95
== END 2018-12-10 19:15 | disposition short-term general hospital (02) ==
LOC: EDUNIT# 12:06 → ER 12:08
DX: R45.851 Suicidal ideations (principal); M25.562 Pain in left knee; G89.29 Other chronic pain; I10 Essential (primary) hypertension; E78.00 Pure hypercholesterolemia, unspecified; F32.9 Major depressive disorder, single episode, unspecified; F90.9 Attention-deficit hyperactivity disorder, unspecified type; F41.9 Anxiety disorder, unspecified; Z91.5 Personal history of self-harm
CPT/HCPCS: 36415; 80053; 80306; 80320; 80329; 81000; 85025; 93005

== ENCOUNTER 2019-04-30 20:26 | Emergency (ER) | payer SELFPAY ==
[~2019-04-30] VITALS: Ht 157.5 cm; Wt 63.5 kg
[2019-04-30] MEDS ORDERED: LACTATED RINGERS 1,000 ML IV ONE ×3 (20:53→22:45)
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
[2019-04-30 21:08] LABS: BASOPHILS % (AUTO) 0 % (0-10); EOSINOPHILS # (AUTO) 2.4 10^3/uL (0.0-0.3); EOSINOPHILS % (AUTO) 22 % (0-10); HEMATOCRIT 40 % (40-54); HEMOGLOBIN 13.4 G/DL (13.3-17.7); LYMPHOCYTES # (AUTO) 3.3 X 10^3 (1.0-4.0); LYMPHOCYTES % (AUTO) 30 % (12-44); MEAN CORPUSCULAR HEMOGLOBIN 29 PG (25-34); MEAN CORPUSCULAR HGB CONC 34 G/DL (32-36); MEAN CORPUSCULAR VOLUME 87 FL (80-99); MONOCYTES # (AUTO) 0.8 X 10^3 (0.0-1.0); MONOCYTES % (AUTO) 7 % (0-12); NEUTROPHILS # (AUTO) 4.4 X 10^3 (1.8-7.8); NEUTROPHILS % (AUTO) 40 % (42-75); PLATELET COUNT 249 10^3/uL (130-400); RED CELL DISTRIBUTION WIDTH 13.8 % (10.0-14.5); WHITE BLOOD COUNT 10.9 10^3/uL (4.3-11.0)
[2019-04-30 21:22] LABS: INR 0.9 (0.8-1.4); PROTHROMBIN TIME PATIENT 12.1 SEC (12.2-14.7)
[2019-04-30 21:27] LABS: EOSINOPHILS % (MANUAL) 24 %; LYMPHOCYTES % (MANUAL) 26 %; MONOCYTES % (MANUAL) 4 %; NEUTROPHILS % (MANUAL) 46 %; RBC MORPH NORMAL
[2019-04-30 21:30] LABS: ALANINE AMINOTRANSFERASE 12 U/L (0-55); ALBUMIN 4.4 GM/DL (3.2-4.5); ALKALINE PHOSPHATASE 74 U/L (40-136); AMYLASE 55 U/L (25-125); BILIRUBIN,TOTAL 0.1 MG/DL (0.1-1.0); BUN/CREATININE RATIO 12; CALCIUM 8.7 MG/DL (8.5-10.1); CARBON DIOXIDE 17 MMOL/L (21-32); CHLORIDE 109 MMOL/L (98-107); CREATININE SERUM 0.84 MG/DL (0.60-1.30); GFR ESTIMATED > 60; GLUCOSE 115 MG/DL (70-105); LIPASE 40 U/L (8-78); MAGNESIUM 1.9 MG/DL (1.6-2.4); POTASSIUM 3.4 MMOL/L (3.6-5.0); SALICYLATE < 5.0 MG/DL (5.0-20.0); SODIUM 139 MMOL/L (135-145)
[2019-04-30 21:35] LABS: ACETAMINOPHEN < 10 UG/ML (10-30)
--- NOTE | 2019-04-30 21:35 | NUR ---
PT ATTEMPTED TO EXIT ROOM TO GET A DRINK OF WATER. PT PULLED THE SPIKE OUT OF THE BAG OF FLUIDS. APPROX 500ML LR WASTED.
[2019-04-30 21:50] LABS: TSH (THYROID ANALYZER) 0.88 UIU/ML (0.35-4.94)
[2019-04-30 22:18] LABS: BILIRUBIN,URINE NEGATIVE (NEGATIVE); CLARITY,URINE CLEAR; COLOR,URINE YELLOW; GLUCOSE, URINE (UA) NEGATIVE (NEGATIVE); KETONES,URINE NEGATIVE (NEGATIVE); LEUKOCYTE ESTERASE ,URINE NEGATIVE (NEGATIVE); NITRITE,URINE NEGATIVE (NEGATIVE); PROTEIN,URINE NEGATIVE (NEGATIVE)
[2019-04-30 22:25] LABS: BACTERIA,URINE TRACE /HPF; RBC,URINE 0-2 /HPF; WBC,URINE 0-2 /HPF
[2019-04-30 22:32] LABS: AMPHETAMINE SCREEN, URINE NEGATIVE (NEGATIVE); BARBITURATE SCREEN URINE NEGATIVE (NEGATIVE); BENZODIAZEPINES SCREEN URINE NEGATIVE (NEGATIVE); CANNABINOID SCREEN, URINE NEGATIVE (NEGATIVE); COCAINE SCREEN URINE NEGATIVE (NEGATIVE); METHADONE STAT NEGATIVE (NEGATIVE); METHAMPHETAMINE SCREEN URINE S NEGATIVE (NEGATIVE); OPIATE SCREEN URINE NEGATIVE (NEGATIVE); OXYCODONE STAT NEGATIVE (NEGATIVE); PROPOXYPHENE STAT NEGATIVE (NEGATIVE); TRICYCLIC ANTIDEPRESSANTS SCRE NEGATIVE (NEGATIVE)
--- NOTE | 2019-04-30 22:53 | NUR ---
PT RESTING IN BED WITH THE LIGHTS OFF. PT WAKES EASILY AND STATES THERE IS NOTHING HE NEEDS AT THIS TIME.
[2019-04-30] MEDS ORDERED: D5 1/2 NS W/KCL 20 MEQ/L 1,000 ML IV SCH (23:45)
--- NOTE | 2019-05-01 00:14 | NUR ---
PT SLEEPING IN BED AND RESTING. PT IS EASY TO AWAKEN AND HAS NO CURRENT NEEDS AT THIS TIME.
--- NOTE | 2019-05-01 01:13 | NUR ---
PT SLEEPING IN BED. PT WAKES EASILY.
[2019-05-01] MEDS ORDERED: D5 1/2 NS W/KCL 20 MEQ/L 1,000 ML IV SCH (02:30)
--- NOTE | 2019-05-01 02:48 | NUR ---
SCREENER IN ROOM
--- NOTE | 2019-05-01 02:56 | NUR ---
SCREENER OUT OF ROOM.
--- NOTE | 2019-05-01 03:48 | NUR ---
PLACEMENT FOUND FOR PT AT [facility]. SHANON CHRIS CONTACTED AND HE SAID HE WILL BE ABLE TO TRANSPORT PT LATER THIS MORNING.
--- NOTE | 2019-05-01 04:33 | NUR ---
PT WOKE UP AND WALKED OUT OF ROOM AND INTO THE [place] IN FRONT OF PT ROOM. PT STATED THAT HE WOULD LIKE A DRINK OF WATER. A CUP OF WATER WAS GIVEN TO THE PT AND PT RETURNED TO ROOM AND LAID DOWN IN BED.
--- NOTE | 2019-05-01 04:53 | NUR ---
REPORT CALLED TO CLYDE MORTON AT [facility].
--- NOTE | 2019-05-01 06:15 | NUR ---
PT SLEEPING IN BED. PT IS EASY TO AWAKEN AND STATES THERE IS NOTHING HE NEEDS AT THIS TIME.
--- NOTE | 2019-05-01 07:30 | NUR ---
Pt amb to restroom and back to room #8. Voices no c/o or concerns at this time. Will continue to monitor.
[2019-05-01 09:55] VITALS: BP 162/98
== END 2019-05-01 09:55 ==
LOC: EDUNIT# 20:26 → ER 20:27
DX: R45.851 Suicidal ideations (principal); F10.229 Alcohol dependence with intoxication, unspecified; J44.9 Chronic obstructive pulmonary disease, unspecified; I10 Essential (primary) hypertension; E78.00 Pure hypercholesterolemia, unspecified; F90.9 Attention-deficit hyperactivity disorder, unspecified type; F41.9 Anxiety disorder, unspecified; F32.9 Major depressive disorder, single episode, unspecified; F17.210 Nicotine dependence, cigarettes, uncomplicated; Z89.021 Acquired absence of right finger(s)
CPT/HCPCS: 36415; 80053; 80306; 80320; 80329; 81000; 82150; 83690; 83735; 84443; 85007; 85027; 85610; 85730; 96360; 96361

== ENCOUNTER 2019-09-22 18:58 | Emergency (ER) | payer SELFPAY ==
[~2019-09-22] VITALS: Ht 157 cm; Wt 63.5 kg
--- OUTSIDE RECORDS SUMMARY | 2019-09-22 19:04 | XMS REPORT | Continuity of Care Document ---
Author Organization Unknown Address Unknown Phone Unavailable Allergies Active Description Code Type Severity Reaction Onset Reported/Identified Relationship to Patient Clinical Status Yes No Known Drug Allergies [id number] Miscellaneous Allergy Moderate N/A Yes No Known Drug Allergies Drug Allergy N/A N/A 11/05/2010 Yes No Known Allergies No Known Allergies Drug Allergy Unknown N/A 08/29/2015 Yes No Known Medication Allergies NKMA N/A N/A 09/05/2015 Yes CHOCOLATE 361 DRUG INGREDI~Food N/A Hives 09/06/2015 09/06/2015 Yes No Known Allergies NKA MED N/A N/A 04/11/2016 Yes No Known Drug Allergies [id number] Drug Allergy Unknown N/A 10/07/2018 Medications Medication Packaging Start Date St op Date Route Dosage Sig metFORMIN(metFORMIN) 09/05/2015 09/06/2015 Oral Oral, 0 Refill(s) lisinopril(lisinopril) 09/05/2015 09/06/2015 Oral Oral, Daily, 0 Refill(s) carvedilol(Coreg) 09/05/2015 09/06/2015 Oral Oral, BID, 0 Refill(s) simvastatin(simvastatin) 09/05/2015 09/06/2015 Oral Oral, Bedtime (once a day), 0 Refill(s) nicotine(nicotine 2 mg oral transmucosal g um) 1 Each 09/06/2015 09/06/2015 Chewed 2 mg 2 mg = 1 Each, Chewed, q1hr, PRN: Smoking Cessation nicotine(nicotine 21 mg/24 h r transdermal film, extended release) 1 patches 09/06/2015 09/06/2015 TransDermal 1 patches, Trans Dermal, Daily metFORMIN(metFORMIN 500 mg oral tablet) 1 tabs 09/06/2015 Oral 500 mg 500 mg = 1 tabs, Oral, Daily, 0 Refill(s) carvedilol(Coreg CR 10 mg or al capsule, extended release) 1 caps 09/06/2015 03/05/2016 Oral 10 mg 10 mg = 1 caps, Oral, Daily, 0 Refill(s) traMADol(traMADol 50 mg oral tablet) 2 tabs 09/06/2015 03/05/2016 Oral 100 mg 100 mg = 2 tabs, Oral, q4hr, 50 mg to 100 mg, PRN: as needed for pain, 60 tabs, 0 Refill(s) lisinopril(lisinopril 10 mg oral tablet) 2 tabs 09/06/2015 Oral 20 mg 20 mg = 2 tabs, Oral, Daily, 0 Refill(s) simvastatin(simvastatin 40 mg oral tablet) 1 tabs 09/06/2015 Oral 40 mg 40 mg = 1 tabs, Oral, Daily, 90 tabs, 0 Refill(s) albuterol(Ventolin HFA 90 mc g/inh inhalation aerosol) 2 puffs 09/06/2015 03/05/2016 Inha lation 2 puffs, Inhalat ion, q4hr, PRN: as needed for wheezing, 18 g, 0 Refill(s) LORazepam(Ativan) 1 tabs 09/06/2015 09/06/2015 Oral 1 mg 1 mg = 1 tabs, Oral, Once, PRN: Anxiety OLANZAPINE 10 MG PO TBDP 09/06/2015 Oral 10 2 TI MES DAILY PRN ALUM T MAG HYDROXIDE-SIMETH 200-200-20 [...] 30 DAILY PRN ALBUTEROL SULFATE HFA 108 (9 0 BASE) MCG/ACT IN AERS 09/06/2015 Inhalation 2 EVERY 4 HOURS PRN QUETIAPINE FUMARATE 25 MG PO TABS 09/06/2015 Oral 25 4 TIMES DAILY PRN ATORVASTATIN CALCIUM 20 MG PO TABS 09/07/2015 Oral 20 BEDTIME LISINOPRIL 10 MG PO TABS 09/07/2015 Oral 10 RADHA Y SIMVASTATIN 20 MG PO TABS 09/07/2015 Oral 40 RADHA Y METFORMIN HCL 500 MG PO TABS 09/07/2015 Oral 500 DAILY CARVEDILOL PHOSPHATE ER 10 MG PO CP24 09/07/2015 Oral 10 DAILY HYDROXYZINE HCL 25 MG PO TABS 09/07/2015 Oral 25 3 TIMES DAILY PRN SERTRALINE HCL 50 MG PO TABS 09/07/2015 Oral 50 DAILY MIRTAZAPINE 15 MG PO TABS 09/07/2015 Oral 15 BEDT STEVIE NICOTINE POLACRILEX 2 MG MT LOZG 09/08/2015 Oral 2 EVERY 2 HOURS PRN SERTRALINE HCL 100 MG PO TABS 09/09/2015 Oral 100 DAILY ALBUTEROL SULFATE HFA 108 (9 0 BASE) MCG/ACT IN AERS 09/09/2015 Inhalation 2 EVERY 6 HOURS PRN IBUPROFEN 400 MG PO TABS 09/10/2015 Oral 800 3 TI MES DAILY PRN LISINOPRIL 10 MG PO TABS 09/10/2015 Oral 10 ONCE LISINOPRIL 10 MG PO TABS 09/11/2015 Oral 20 RADHA Y acetaminophen(acetaminophen) 2 tabs 03/05/2016 03/05/2016 Oral 650 mg 650 mg = 2 tabs, Oral, Once LORazepam(Ativan) 1 tabs 03/05/2016 03/05/2016 Oral 1 mg 1 mg = 1 tabs, Oral, Once ibuprofen(ibuprofen) 03/05/2016 Oral 800 mg 800 mg, Oral, BID, PRN: as needed for headache, 0 Refill(s) tetrahydrozoline ophthalmic(Visine) 1 drops 03/05/2016 Eye-Both 1 drops, Eye-Both, BID, PRN: as needed for dry eyes, 0 Refill(s) carvedilol(carvedilol 12.5 mg oral tablet) 1 tabs 03/05/2016 Oral 12.5 mg 12.5 mg = 1 tabs, Oral, Radha y, 0 Refill(s) nicotine(nicotine 2 mg oral transmucosal g um) 1 Each 03/05/2016 03/16/2016 Oral 2 mg 2 mg = 1 Each, Oral, q1hr, P RN: Other (See Comment) nicotine(Habitrol 21 mg/24 h r transdermal film, extended release) 1 patches 03/05/2016 03/16/2016 TransDermal 1 patches, Trans Dermal, Daily LORazepam(Ativan) 0.5 mL 03/05/2016 03/16/2016 IntraMuscular 1 mg 1 mg = 0.5 mL, IntraMuscular, q5min, PRN: Seizure acetaminophen(acetaminophen) 2 tabs 03/05/2016 03/16/2016 Oral 650 mg 650 mg = 2 tabs, Oral, q4hr, PRN: Pain Mild (1-3) haloperidol(Haldol) 0.2 mL 03/05/2016 03/16/2016 IntraMuscular 1 mg 1 mg = 0.2 mL, IntraMuscular, q4hr, PRN: Agitation ondansetron(Zofran) 1 tabs 03/05/2016 03/16/2016 Oral 4 mg 4 mg = 1 tabs, Oral, q6hr, PRN: Nausea folic acid(folic acid) 1 tab s 03/05/2016 03/16/2016 Oral 1 mg 1 mg = 1 tabs, Oral, Daily LORazepam(Ativan) 1 mL 03/05/2016 03/06/2016 IntraMuscular 2 mg 2 mg = 1 mL, IntraMuscular, Once promethazine(Phenergan) 1 mL 03/05/2016 03/16/2016 IntraMuscular 25 mg 25 mg = 1 mL, IntraMuscular, q4hr, PRN: Nausea haloperidol(Haldol) 0.1 mL 03/05/2016 03/16/2016 IntraMuscular 0.5 mg 0.5 mg = 0.1 mL, IntraMuscular, q2hr, PRN: Other (See Comment) thiamine(thiamine) 1 tabs 03/05/2016 03/16/2016 Oral 100 mg 100 mg = 1 tabs, Oral, Daily lisinopril(lisinopril) 2 tab s 03/05/2016 03/16/2016 Oral 40 mg 40 mg = 2 tabs, Oral, Daily carvedilol(carvedilol) 1 tab s 03/05/2016 03/16/2016 Oral 12.5 mg 12.5 mg = 1 tabs, Oral, Daily metFORMIN(metFORMIN) 1 tabs 03/06/2016 03/16/2016 Oral 500 mg 500 mg = 1 tabs, Oral, Daily atorvastatin(atorvastatin) 1 tabs 03/06/2016 03/16/2016 Oral 20 mg 20 mg = 1 tabs, Oral, Bedtime (once a day) haloperidol(Haldol) 1 tabs 03/07/2016 03/08/2016 Oral 1 mg 1 mg = 1 tabs, Oral, BID traMADol(Ultram) 2 tabs 03/07/2016 03/16/2016 Oral 100 mg 100 mg = 2 tabs, Oral, q6hr, PRN: Pain Moderate (4-6) ibuprofen(ibuprofen) 1 tabs 03/07/2016 03/16/2016 Oral 400 mg 400 mg = 1 tabs, Oral, q6hr, PRN: Pain Mild (1-3) mirtazapine(Remeron) 1 tabs 03/08/2016 03/15/2016 Oral 15 mg 15 mg = 1 tabs, Oral, Bedtime (once a day) fluticasone-salmeterol(Advai r HFA 115 mcg-21 mcg/inh inhalation aerosol) 2 puffs 03/09/2016 03/16/2016 Inhalation 2 puffs , Inhalation, Daily fluticasone-salmeterol(Advai r HFA 115 mcg-21 mcg/inh inhalation aerosol) 2 puffs 03/10/2016 Inhalation 2 puffs, Inhalat ion, Daily, 1 Each, 0 Refill(s) traMADol(Ultram 50 mg oral tablet) 2 tabs 03/10/2016 03/16/2016 Oral 100 mg 100 mg = 2 tabs, Oral, q6hr, PRN: Pain Moderate (4-6), 60 tabs, 0 Refill(s) mirtazapine(Remeron 15 mg oral tablet) 1 tabs 03/10/2016 03/16/2016 Oral 15 mg 15 mg = 1 tabs, Oral, Bedtime (once a day), 30 tabs, 0 Refill(s) lisinopril(lisinopril) 1 tab s 03/11/2016 03/11/2016 Oral 10 mg 10 mg = 1 tabs, Oral, Once tetrahydrozoline ophthalmic( Visine 0.05% ophthalmic solution) 2 drops 03/12/2016 03/16/2016 Eye- Both 2 drops, Eye-Bot h, BID, PRN: Dry Eyes lisinopril(lisinopril) 1 tab s 03/13/2016 03/13/2016 Oral 10 mg 10 mg = 1 tabs, Oral, Once mirtazapine(Remeron) 2 tabs 03/15/2016 03/16/2016 Oral 30 mg 30 mg = 2 tabs, Oral, Bedtime (once a day) mirtazapine(Remeron 15 mg oral tablet) 2 tabs 03/16/2016 03/16/2016 Oral 30 mg 30 mg = 2 tabs, Oral, Bedtime (once a day), 60 tabs, 0 Refill(s) mirtazapine(Remeron 30 mg oral tablet) 1 tabs 03/16/2016 Oral 30 mg 30 mg = 1 tabs, Oral, Bedtime (once a day), 30 tabs, 0 Refill(s) hydrOXYzine(hydrOXYzine hydr ochloride 25 mg oral tablet) 1 tabs 03/16/2016 04/15/2016 Oral 25 mg 25 mg = 1 tabs, Oral, q6hr, PRN: Anxiety, 90 tabs, 0 Refill(s) traMADol(Ultram 50 mg oral tablet) 2 tabs 03/16/2016 03/30/2016 Oral 100 mg 100 mg = 2 tabs, Oral, q6hr, PRN: Pain Moderate (4-6), 30 tabs, 0 Refill(s) ketorolac(Toradol) 1 mL 03/20/2016 03/20/2016 IntraMuscular 30 mg 30 mg = 1 mL, IntraMuscular, Once traMADol(traMADol) 1 tabs 03/20/2016 03/20/2016 Oral 50 mg 50 mg = 1 tabs, Oral, Once cloNIDine(cloNIDine) 2 tabs 03/20/2016 03/20/2016 Oral 0.2 mg 0.2 mg = 2 tabs, Oral, Once traMADol(traMADol 50 mg oral tablet) 1 tabs 03/20/2016 03/25/2016 Oral 50 mg 50 mg = 1 tabs, Oral, q8hr, for 5 days, 15 tabs, 0 Refill(s) HydrOXYzine Pamoate 25 MG Oral Capsule UD 04/11/2016 06/07/2016 ORAL 25MG take one capsule up to 4x a day as needed for anxiety Mirtazapine 30 MG Oral Tablet UD 04/11/2016 06/07/2016 ORAL 30MG TAKE 1 TABLET AT BEDTIME. LORazepam(Ativan) 1 mL 06/05/2016 06/05/2016 IV Push 2 mg 2 mg = 1 mL, IV Push, Once acetaminophen(acetaminophen) 2 tabs 06/05/2016 06/05/2016 Oral 1,000 mg 1,000 mg = 2 tabs, Oral, Once, PRN: Headache aspirin(aspirin) 4 tabs 06/05/2016 06/05/2016 Oral 324 mg 324 mg = 4 tabs, Oral, Once famotidine(Pepcid) 2 mL 06/05/2016 06/05/2016 IV Push 20 mg 20 mg = 2 mL, IV Push, Once nitroglycerin(Nitrostat 0.4 mg sublingual tablet) 1 tabs 06/05/2016 SubLingual 0.4 mg 0.4 mg = 1 tabs, SubLingual, q5min, not to exceed 3 doses/15 min--if pain persists, seek medical attention, PRN: as needed for chest pain, 1 bottles, 0 Refill(s) famotidine(Pepcid 20 mg oral tablet) 1 tabs 06/05/2016 Oral 20 mg 20 mg = 1 tabs, Oral, BID, 60 tabs, 0 Refill(s) labetalol(labetalol) 2 mL 06/05/2016 06/06/2016 IV Push 10 mg 10 mg = 2 mL, IV Push, Once, PRN: Hypertension/High Blood Pressure amLODIPine(amLODIPine) 1 tab s 06/05/2016 06/05/2016 Oral 5 mg 5 mg = 1 tabs, Oral, Once lisinopril(lisinopril 20 mg oral tablet) 1 tabs 06/05/2016 Oral 20 mg 20 mg = 1 tabs, Oral, Daily, 30 tabs, 0 Refill(s) HydrOXYzine Pamoate 25 MG Oral Capsule UD 06/06/2016 07/07/2016 ORAL 25MG take one capsule up to 4x a day as needed for anxiety Mirtazapine 30 MG Oral Tablet UD 06/06/2016 07/07/2016 ORAL 30MG TAKE 1 TABLET AT BEDTIME. 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, recurrent severe without psychotic features Psy, Batch 03/22/2016 F F10.20 Alc ohol dependence, uncomplicated Ellen, [place] 03/22/2016 F 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, uncomplicated Ellen, [place] 03/22/2016 F 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, recurrent severe without psychotic features [place], [place] 03/22/2016 F I10 Essent ial (primary) hypertension Ellen [place] 03/22/2016 F Z56.0 Unem ployment, unspecified Ellen, [place] 03/22/2016 F Z59.1 Inad equate housing [place], [place] 03/22/2016 F Z59.5 Extr binu poverty [place], [place] 03/22/2016 F Z65.3 Prob lems related to other legal circumstances Monika Hughese 03/23/2016 Aftab Chung Final F17.200 Nicotine dependence, unspecified, uncomplicated 03/23/2016 Aftab Chung Final G89.29 Other chronic pain 03/23/2016 Aftab Chung Final I 10 Essential (primary) hypertension 03/23/2016 Aftab Chung Reason M54.5 Low back pain 04/11/2016 F 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, recurrent severe without psychotic features Chavez Munoz 04/11/2016 F F10.20 Alc ohol dependence, uncomplicated Alexander, Chavez Rm 04/11/2016 F 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, uncomplicated AlexanderChavez 04/11/2016 F Z56.0 Unem ployment, unspecified AlexanderChavez reyes 04/11/2016 F F10.20 Alc ohol dependence, uncomplicated Psy, Batch 04/11/2016 F 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, uncomplicated Psy, Batch 04/11/2016 F Z56.0 Unem ployment, unspecified Psy, Batch 04/11/2016 F 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, recurrent severe without psychotic features Psy, Batch 04/11/2016 F F10.20 Alc ohol dependence, uncomplicated [place], [place] 04/11/2016 F 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, uncomplicated Ellen, [place] 04/11/2016 F 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, recurrent severe without psychotic features Ellen Monika Lucina 04/11/2016 F I10 Essent ial (primary) hypertension [place], Monika Lucina 04/11/2016 F Z56.0 Unem ployment, unspecified [place], Monika Lucina 04/11/2016 F Z59.1 Inad equate housing Ellen, [place] 04/11/2016 F Z59.5 Extr binu poverty [place], [facility] 04/11/2016 F Z65.3 Prob lems related to other legal circumstances Monika Hughes 06/05/2016 F E11 Type 2 diabetes mellitus Le, Benjamen 06/05/2016 F F10.20 Alc ohol dependence, uncomplicated YarelyMarycruz hollowayfer D 06/05/2016 F 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, uncomplicated Yarely, Aparna D 06/05/2016 F Z56.0 Unem ployment, unspecified Yarely, Aparna D 06/06/2016 F 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, recurrent severe without psychotic features Lies, Brittney F 06/06/2016 F F10.20 Alc ohol dependence, uncomplicated Lies, Brittney F 06/06/2016 F 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, uncomplicated Lies, Brittney F 06/06/2016 F Z56.0 Unem ployment, unspecified Lies, Brittney F 06/06/2016 F F10.20 Alc ohol dependence, uncomplicated Psy, Batch 06/06/2016 F 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, uncomplicated Psy, Batch 06/06/2016 F Z56.0 Unem ployment, unspecified Psy, Batch 06/06/2016 F 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, recurrent severe without psychotic features Psy, Batch 06/06/2016 F F10.20 Alc ohol dependence, uncomplicated Le, Benjamen 06/06/2016 F 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, uncomplicated Le, Benjamen 06/06/2016 F 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, recurrent severe without psychotic features Le, amen 06/06/2016 F I10 Essent ial (primary) hypertension Le, amen 06/06/2016 F Z56.0 Unem ployment, unspecified Le, Benjamen 06/06/2016 F Z59.1 Inad equate housing Le, amen 06/06/2016 F Z59.5 Extr binu poverty Le, amen 06/06/2016 F Z65.3 Prob lems related to other legal circumstances Le, Benjamen 06/06/2016 F 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, recurrent severe without psychotic features Ken, Radha C 06/06/2016 F F10.20 Alc ohol dependence, uncomplicated Ken, Radha C 06/06/2016 F 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 06/06/2016 F Z56.0 Unem ployment, unspecified Le, [facility] 06/06/2016 F Z59.1 Inad equate housing Le, [facility] 06/06/2016 F Z59.5 Extr binu poverty Le, 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, uncomplicated Joesph, Kathy 06/06/2016 F Z56.0 Unem ployment, unspecified Joesph, Kathy 06/06/2016 F F10.20 Alc ohol dependence, uncomplicated Psy, Batch 06/06/2016 F 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, uncomplicated Psy, Batch 06/06/2016 F Z56.0 Unem ployment, unspecified Psy, Batch 06/06/2016 F 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, recurrent severe without psychotic features [place], Perkins 06/06/2016 F F10.20 Alc ohol dependence, uncomplicated [place], [place] 06/06/2016 F 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, uncomplicated [place], Wu 06/06/2016 F Z56.0 Unem ployment, unspecified [place], [place] 06/06/2016 F F10.20 Alc ohol dependence, uncomplicated Psy, Batch 06/06/2016 F 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, uncomplicated Psy, Batch 06/06/2016 F Z56.0 Unem ployment, unspecified Psy, Batch 06/06/2016 F 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, recurrent severe without psychotic features Psy, Batch 06/06/2016 F 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, recurrent severe without psychotic features Psy, Batch 06/06/2016 F F10.20 Alc ohol dependence, uncomplicated Le, Benjamen 06/06/2016 F 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, uncomplicated Le, Benjamen 06/06/2016 F 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, recurrent severe without psychotic features Le, Benjamen 06/06/2016 F I10 Essent ial (primary) hypertension Le, amen 06/06/2016 F Z56.0 Unem ployment, unspecified Le, amen 06/06/2016 F Z59.1 Inad equate housing Le, amen 06/06/2016 F Z59.5 Extr binu poverty Le, amen 06/06/2016 F Z65.3 Prob lems related to other legal circumstances Le, amen 06/06/2016 F 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, recurrent severe without psychotic features Barnard, Tim 06/06/2016 F F10.20 Alc ohol dependence, uncomplicated Barnard, Tim 06/06/2016 F 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, uncomplicated Barnard, Tim 06/06/2016 F Z56.0 Unem ployment, unspecified Barnard, Tim 06/06/2016 F 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, recurrent severe without psychotic features Barnard, Tim 06/06/2016 F F10.20 Alc ohol dependence, uncomplicated Barnard, Tim 06/06/2016 F 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, uncomplicated Barnard, Tim 06/06/2016 F Z56.0 Unem ployment, unspecified Barnard, Tim 06/07/2016 F 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, recurrent severe without psychotic features Psy, Batch 06/07/2016 F 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, recurrent severe without psychotic features Aparna Pritchett 06/07/2016 Sudarshan,Josué Final 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, unspecified with unspecified alcohol-induced disorder 06/07/2016 Heaton Jacob Final F17.20 0 Nicotine dependence, unspecified, uncomplicated 06/07/2016 Heaton Jacob Reason R07.8 9 Other chest pain 06/07/2016 Heaton Jacob Final R45.85 1 Suicidal ideations 06/07/2016 Heaton Jacob Final Z79.89 9 Other [facility] (current) drug therapy 07/07/2016 Bhakta Michael Final [...] (on) (from) other stairs and steps, initial encou nter 07/07/2016 Bhakta Michael Final Y92.[address] onur of occurrence of the external c 07/07/2016 Bhakta Michael Final 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 07/07/2016 Bhakta Michael Final 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 08/15/2017 MADIHA MORGAN E119 Type 2 diabetes mellitus without complications 08/15/2017 MADIHA MORGAN P I10 Essential (primary) hypertension 08/15/2017 MADIHA MORGAN M545 Low back pain 01/08/2018 MONIKA WILEY S E11 9 Type 2 diabetes mellitus without complications 01/08/2018 MONIKA WILEY F17 200 Nicotine dependence, unspecified, uncomplicated 01/08/2018 MONIKA WILEY P F29 Unspecified psychosis not due to a substance or known physiological condition 01/08/2018 MONIKA WILEY S F32 9 Major depressive disorder, single episode, unspecified 03/08/2018 BOMMASAMUAMCRUZ S F1099 Alcohol use, unspecified with unspecifie d alcohol-induced disorder 03/08/2018 BOMMASAMUDRAM, PAVANKUMAR S F1290 Cannabis use, unspecified, uncomplicated 03/08/2018 BOMMASAMUDRAM, PAVANKUMAR S F1590 Other stimulant use, unspecified, uncomplicated 03/08/2018 BOMMASAMUDRAM, PAVANKUMAR S Z06561 Nicotine dependence, cigarettes, uncomplicated 03/08/2018 BOMMASAMUDRAM, PAVANKUMAR S F329 Major depressive disorder, single episode, unspecified 03/08/2018 BOMMASAMUDRAM, PAVANKUMAR S I10 Essential (primary) hypertension 03/08/2018 BOMMASAMUDRAM, PAVANKUMAR P [id number] Suicidal ideations 03/08/2018 BOMMASAMUDRAM, PAVANKUMAR S Y900 Blood alcohol level of less than 20 mg/100 ml 03/08/2018 BOMMASAMUDRAM, PAVANKUMAR S Z818 Family history of other mental and behavioral disorder s 10/07/2018 RANDALL KERN Ot E78.00 PURE HYPERCHOLESTEROLEMIA, UNSPECIFIED 10/07/2018 RANDALL KERN Ot F17.200 NICOTINE DEPENDENCE, UNSPECIFIED, UNCOMP 10/07/2018 RANDALL KERN Ot I10 ESSENTIAL (PRIMARY) HYPERTENSION 10/07/2018 RANDALL KERN Ot M25.562 PAIN IN LEFT KNEE 10/07/2018 SHAYY KERNIS Ot X50.1XXA OVEREXERTION FROM PROLONGED STATIC OR AW 10/07/2018 RANDALL KERN Ot Y92.[address] 10/07/2018 RANDALL KERN Ot Y99.0 CIVILIAN ACTIVITY DONE FOR INCOME OR PAY 10/11/2018 RANDALL KERN Ot E78.00 PURE HYPERCHOLESTEROLEMIA, UNSPECIFIED 10/11/2018 SHAYY KERNIS Ot F17.200 NICOTINE DEPENDENCE, UNSPECIFIED, UNCOMP 10/11/2018 RANDALL KERN Ot I10 ESSENTIAL (PRIMARY) HYPERTENSION 10/11/2018 RANDALL KERN Ot M25.562 PAIN IN LEFT KNEE 10/11/2018 SHAYY KERNIS Ot X50.1XXA OVEREXERTION FROM PROLONGED STATIC OR AW 10/11/2018 RANDALL KERN Ot Y92.[address] 10/11/2018 RANDALL KERN Ot Y99.0 CIVILIAN ACTIVITY DONE FOR INCOME OR PAY 12/10/2018 AMBROSIO BURKETT MD Ot E78.00 PURE HYPERCHOLESTEROLEMIA, UNSPECIFIED 12/10/2018 AMBROSIO BURKETT MD Ot F32.9 MAJOR DEPRESSIVE DISORDER, SINGLE EPISOD 12/10/2018 AMBROSIO BURKETT MD, Ot F41.9 ANXIETY DISORDER, UNSPECIFIED 12/10/2018 AMBROSIO BURKETT MD, Ot F90.9 ATTENTION-DEFICIT HYPERACTIVITY DISORDER 12/10/2018 AMBROSIO BURKETT MD Ot G89.29 OTHER CHRONIC PAIN 12/10/2018 AMBROSIO BURKETT MD Ot I10 ESSENTIAL (PRIMARY) HYPERTENSION 12/10/2018 AMBROSIO BURKETT MD Ot M25.562 PAIN IN LEFT KNEE 12/10/2018 AMBROSIO BURKETT MD Ot R45.851 SUICIDAL IDEATIONS 12/10/2018 AMBROSIO BURKETT MD Ot Z91.5 PERSONAL HISTORY OF SELF-HARM 05/02/2019 ALUREN CAMERON K Ot E78.00 PURE HYPERCHOLESTEROLEMIA, UNSPECIFIED 05/02/2019 LAUREN DO CAMERON K Ot F10.229 ALCOHOL DEPENDENCE WITH INTOXICATION, UN 05/02/2019 LAURENDeja CAMARA CAMERON K Ot F17.210 NICOTINE DEPENDENCE, CIGARETTES, UNCOMPL 05/02/2019 LAURENDeja CAMARA CAMERON K Ot F32.9 MAJOR DEPRESSIVE DISORDER, SINGLE EPISOD 05/02/2019 LAUREN CAMARA CAMERON K Ot F41.9 ANXIETY DISORDER, UNSPECIFIED 05/02/2019 LAUREN CAMARA CAMERON K Ot F90.9 ATTENTION-DEFICIT HYPERACTIVITY DISORDER 05/02/2019 LAUREN DO CAMERON K Ot I10 ESSENTIAL (PRIMARY) HYPERTENSION 05/02/2019 LAUREN CAMARA CAMERON K Ot J44.9 CHRONIC OBSTRUCTIVE PULMONARY DISEASE, U 05/02/2019 LAUREN CAMARA CAMERON K Ot R45.851 SUICIDAL IDEATIONS 05/02/2019 LAUREN CAMARA CAMERON K Ot Z89.021 ACQUIRED ABSENCE OF RIGHT FINGER(S) Procedures Code Description Performed By Per adenike On 24.0 GUM O R ALVEOLAR INCISION Robert Anderson DO 02/23/2013 [id number] Monika Hughes 03/21/2016 [id number] Monika Hughes 03/21/2016 [id number] OFFI CE/OUTPATIENT VISIT, EST Neena Reddy Holli 04/11/2016 [id number] OFFI CE/OUTPATIENT VISIT, EST Neena Reddy Holli 04/11/2016 H2011 Jinny Le 06/05/2016 H2011 Brittney Gaston F 06/06/2016 H2011 Lies, Brittney F 06/06/2016 H2011 Lipscom, Wu 06/06/2016 [id number] OFFI CE/OUTPATIENT VISIT, EST Radha Ken C 06/06/2016 [id number] OFFI CE/OUTPATIENT VISIT, EST Radha Ken C 06/06/2016 H2011 [place], Wu 06/06/2016 H2011 Joesph Kathy 06/06/2016 H2011 Evon, Tim 06/06/2016 H2011 Evon, Tim 06/06/2016 Results Test Result Range URINALYSIS, ROUTINE - 02/01/14 13:28 UA LEUKOCYTE ESTERASE DIPSTICK NEGATIVE NEGATIVE UA NITRITE DIPSTICK NEGATIVE NEGATIVE UA PROTEIN DIPSTICK NEGATIVE NEGATIVE UA GLUCOSE DIPSTICK NEGATIVE NEGATIVE UA KETONE DIPSTICK NEGATIVE NEGATIVE UA UROBILINOGEN DIPSTICK NORMAL ANGIE L UA BILIRUBIN DIPSTICK NEGATIVE NEGATIVE UA BLOOD DIPSTICK 2+ NEGATIVE UA SPECIFIC GRAVITY 1.020 1.015-1.02 5 UR PH 5.0 5.0-7.0 UA MICROSCOPIC - [...] mL/min > 59 CREATININE 0.9 mg/dL 0.8-1.3 Chem 8 NPT - 03/05/16 01:44 Anion Gap 12 NA 3-20 BUN Venous 10 mg/dl 4-20 Calcium Ionized Venous 1.13 mmol/L 1.19- 1.41 Creatinine Venous 0.8 mg/dL 0.7-1.2 Glucose Venous 102 mg/dL 70-100 Potassium, WB 3.6 mEq/L 3.6-5.1 Sodium Venous 136 mEq/L 136-144 Total CO2 Venous 22 mEq/L 25-29 Venous CL 102 mEq/L 99-109 HCT Venous 39.0 % 42.0-52.0 HGB Venous NPT 13.3 g/dL 14.0-18.0 CBC With Platelet and Differential - 13:12 Absolute Basophils 0.03 10*3/uL 0.00-0.2 0 Absolute Eosinophils 0.06 10*3/uL 0.00-0 .50 Absolute Lymphocytes 1.81 10*3/uL 0.80-3 .30 Absolute Monocytes 1.33 10*3/uL 0.30-1.0 0 Absolute Neutrophils 9.45 10*3/uL 1.90-7 .00 Basophils 0 % 0-2 Eosinophils 1 % 0-4 HCT 39.4 % 42.0-52.0 HGB 13.7 g/dL 14.0-18.0 Immature Granulocytes 1.1 % 0.0-1.0 Lymphocytes 14 % 20-46 MCH 30.1 pg 27.0-32.0 MCHC 34.8 g/dL 32.0-36.0 MCV 86.6 fL 82.0-99.0 Monocytes 10 % 4-11 MPV 9.1 fL 9.4-12.3 Neutrophils 74 % 51-75 Platelet Count 300 K/uL 150-400 RBC 4.55 10*6/uL 4.60-6.20 RDW 13.8 % 11.5-14.5 WBC 12.8 K/uL 4.8-10.8 Troponin - 06/05/16 13:12 Troponin <0.05 ng/mL <0.06 Acetaminophen - 06/05/16 13:12 Acetaminophen <10 mcg/mL 10-30 Salicylate - 06/05/16 13:12 Salicylate <4 mg/dL 0-30 Comprehensive Metabolic Panel (CMP) - 13:12 Albumin 4.0 g/dL 3.5-4.8 Alkaline Phosphatase 52 U/L 26-104 ALT (SGPT) 15 U/L 17-63 Anion Gap 12 NA 3-20 AST (SGOT) 22 U/L 15-41 Bilirubin Total 0.5 mg/dL 0.2-1.2 BUN 12 mg/dL 4-20 Calcium 9.0 mg/dL 8.6-10.0 Chloride 98 mEq/L 99-109 CO2 24 mEq/L 22-32 Creatinine 0.85 mg/dL 0.64-1.27 Globulin 2.6 g/dL 1.9-4.3 Glucose 103 mg/dL 70-100 Potassium 3.4 mEq/L 3.6-5.1 Protein 6.6 g/dL 6.1-7.9 Sodium 134 mEq/L 136-144 Alcohol, Blood - 06/05/16 13:12 Alcohol, Blood Not Detected mg/dL Lipase - 06/05/16 13:12 Lipase 34 U/L 8-48 eGFR - 06/05/16 13:12 eGFR >60 NA >60 Urine Drug Screen - 06/05/16 13:12 Amph/Meth/Ecstasy Negative NA Barbiturates Negative NA Benzodiazepine Negative NA Cannabinoid Negative NA Cocaine Negative NA EDDP (Methadone met.) Negative NA Opiate Negative NA Phencyclidine (PCP) Negative NA CBC With Platelet and Differential - 09:52 Absolute Basophils 0.02 10*3/uL 0.00-0.2 0 Absolute Eosinophils 0.12 10*3/uL 0.00-0 .50 Absolute Lymphocytes 1.33 10*3/uL 0.80-3 .30 Absolute Monocytes 0.81 10*3/uL 0.30-1.0 0 Absolute Neutrophils 7.80 10*3/uL 1.90-7 .00 Basophils 0 % 0-2 Eosinophils 1 % [...] K/uL 4.8-10.8 Urinalysis with reflex microscopic - 09:52 Appearance Clear NA Bilirubin Negative NA Negative Blood Negative NA Negative Color Straw NA Glucose, Urine Negative Negative Ketones Negative Negative Leukocyte Esterase Negative NA Negative Nitrites Negative NA Negative pH 7.0 NA 5.0-8.0 Protein Negative NA Negative Specific Dawson <1.003 NA 1.003-1.030 UA Collection type Clean Catch NA Urobilinogen Negative mg/dL <1.0 Acetaminophen - 07/26/17 09:52 Acetaminophen <10 mcg/mL 10-30 Comprehensive Metabolic Panel (CMP) - 09:52 Albumin 3.9 g/dL 3.5-4.8 Alkaline Phosphatase [...] - 07/26/17 09:52 eGFR >60 mL/min >60 TSH with Reflex Free T4 - 07/26/17 09:52 TSH with Reflex Free T4 0.63 uIU/mL 0.35 -5.50 HIV Antigen/Antibody Combo - 07/26/17 09 :52 HIV Antigen/Antibody Combo Negative NA Hepatitis Panel - 07/26/17 09:52 Hepatitis A Antibody IGM Negative Hepatitis B Surface Antigen Negative Hepatitis C Total Antibody Negative Hepatitis Core Ab IGM Negative Lipid Panel - 07/26/17 09:52 Cardiac Risk 3.6 0.0-5.7 Cholesterol 185 mg/dL 0-199 HDL Cholesterol 51 mg/dL 40-84 LDL Cholesterol 107 mg/dL 0-130 Triglycerides 137 mg/dL 0-149 VLDL Cholesterol 27 mg/dL 0-28 Hemoglobin A1C - 07/26/17 09:52 Hemoglobin A1C 6.2 % 4.1-5.6 Estimated Average Glucose - 07/26/17 09: 52 Estimated Average Glucose 131.2 mg/dL THC (semi-quantitative), Urine - 8 09:57 THC (semi-quantitative), Urine 129 ng/mL HEMOGLOBIN A1C - 08/15/17 14:46 HGB A1C 6.20 % 4.85 - 6.45 COMP METABOLIC PROFILE - 03/07/18 18:16 COMPMETABOLICPROFILE FASTING SPECIMEN? UNKNOWN FINGER STICK NO SODIUM 138 mmol/L 136 - 145 POTASSIUM 3.5 mmol/L 3.5 - 4.8 CHLORIDE 107 mmol/L 98 - 107 TOTAL CO2 23 mmol/L 21 - 32 GLUCOSE 105 mg/dL 65 - 110 BUN 13 mg/dL 7 - 18 CREATININE 0.7 mg/dL 0.8 - 1.1 TOTAL BILI 0.1 mg/dL 0.0 - 1.0 DIRECT BILI 0.0 mg/dL 0.0 - 0.3 INDIRECT BILI 0.1 mg/dl 0.1 - 1.0 ALKALINE PHOS 55 U/L 50 - 136 SGPT/ALT 24 U/L 12 - 78 SGOT/AST 15 U/L 15 - 45 TOTAL PROTEIN 6.9 g/dL 6.4 - 8.2 ALBUMIN 3.5 g/dL 3.4 - 5.6 CALCIUM 8.4 mg/dL 8.5 - 10.0 AGE 52 YEARS GFR 126 ml/min/1.7 eGFR >60 mL/min/1.7 GFR >60 mL/min/1.7 ACETAMINOPHEN - 03/07/18 18:16 ACETAMINOPHEN 0.0 ug/mL 10.0 - 30.0 ALCOHOL - 03/07/18 18:16 ALCOHOL <3.0 mg/dL SALICYLATE - 03/07/18 18:16 SALICYLATE 3.4 mg/dL 2.8 - 20.0 TSH - 03/07/18 18:16 TSH 0.34 mIU/L 0.46 - 4.68 CBC WITH DIFF - 03/07/18 18:16 FINGER STICK NO CBCWITHDIFF WBC 7.2 10^3uL 4.0 - 11.0 RBC 4.32 10^6uL 4.20 - 5.40 HEMOGLOBIN 12.9 g/dL 13.5 - 16.0 HEMATOCRIT 38.6 % 35.0 - 58.0 MCV 89.4 fl 78.0 - 95.0 MCH 29.9 pg 25.0 - 35.0 MCHC 33.4 g/dL 32.0 - 36.0 RDW 13.2 % 11.5 - 14.5 PLATELETS 242 10^3uL 130 - 400 %NEUTROPHILS 60.4 % 35.0 - 75.0 %LYMPHOCYTES 28.3 % 20.0 - 53.0 %MONOCYTES 8.6 % 0.0 - 10.0 %EOSINOPHILS 1.80 % 0.00 - 8.00 %BASOPHILS 0.30 % 0.00 - 2.00 %IG 0.60 % 0.00 - 0.90 #NEUTROPHILS 4.37 1.80 - 7.50 #LYMPHOCYTES 2.04 0.70 - 3.10 #MONOCYTES 0.62 0.20 - 0.90 #EOSINOPHILS 0.13 0.00 - 0.50 #BASOPHILS 0.02 0.00 - 0.10 #IG 0.04 0.00 - 0.03 MANUAL DIFF NOT INDICATED RBC MORPH NOT INDICATED %NRBC 0.00 % 0.00 - 10.00 #NRBC 0.00 0.40 - 1.10 UA WITH MICROSCOPY/CULTURE IF INDICATED - 03/07/18 19:50 URINE SAMPLE RANDOM U COLOR YELLOW NORMAL: STRAW-YELLOW U TURBIDITY Clear NORMAL: CLEAR U SP GRAVITY 1.010 NORMAL: 1.005-1.0 30 U NITRITE Negative NORMAL: NEGATIVE U pH 7.0 NORMAL: 5.0-8.0 U PROTEIN Negative NORMAL: NEGATIVE U GLUCOSE Negative NORMAL: NEGATIVE U KETONES Negative NORMAL: NEGATIVE U UROBILINOGEN 2.0 NORMAL: 0.2 mg/ dl U BILIRUBIN NONE NORMAL: NEGATIVE U BLOOD Negative NORMAL: NEG - TRACE U LEUKO KG Negative NORMAL: NEGATIVE U MICROSCOPIC Not Indicated U CULTURE SET NO Sample of Urine: 10 ML UAMICROSCOPYANDCULTUREIFINDICATED DRUG SCR UR TRIAGE - 03/07/18 17:50 DRUGSCRURTRIAGE AMPHETAMINE POSITIVE 500 NG/ML BENZODIAZEPINES NEGATIVE 150 NG/ML COCAINE NEGATIVE 150 NG/ML MARIJUANA POSITIVE 50 NG/ML METHADONE NEGATIVE 200 NG/ML METHAMPHETAMINE POSITIVE 500 NG/ML OPIATES NEGATIVE 100 NG/ML OXYCODONE NEGATIVE 100 NG/ML PHENCYCLIDINE NEGATIVE 25 NG/ML PROPOXYPHENE NEGATIVE 300 NG/ML TRICYCLIC NEGATIVE 300 NG/ML BARBITURATES NEGATIVE 200 NG/ML BUPRENORPHINE NEGATIVE 10 NG/ML ANY POSITIVE? YES Complete urinalysis with reflex to cultu re - 12/10/18 12:40 Urine color determination YELLOW NRG Urine clarity determination CLEAR NR G Urine pH measurement by test strip 5 5-9 Specific gravity of urine by test strip 1.010 1.016-1.022 Urine protein assay by test strip, semi-quantitative NEGATIVE NEGATIVE Urine glucose detection by automated test strip NE GATIVE NEGATIVE Erythrocytes detection in urine sediment by light micr oscopy 1+ NEGATIVE Urine ketones detection by automated test strip NE GATIVE NEGATIVE Urine nitrite detection by test strip NEGATIVE NEGATIVE Urine total bilirubin detection by test strip NEGA TIVE NEGATIVE Urine urobilinogen measurement by automated test strip (mass/volume) NORMAL NORMAL Urine leukocyte esterase detection by dipstick NEG ATIVE NEGATIVE Automated urine sediment erythrocyte cou nt by microscopy (number/high power field) [HPF] NRG Automated urine sediment leukocyte count by microscopy (number/high power field) NONE NRG Bacteria detection in urine sediment by light microsco py NEGATIVE NRG Squamous epithelial cells detection in u rine sediment by light microscopy RARE NRG Crystals detection in urine sediment by light microsco py NONE NRG Casts detection in urine sediment by light microscopy NONE NRG Mucus detection in urine sediment by light microscopy NEGATIVE NRG Complete urinalysis with reflex to culture NO NRG Urine drug screening test - 12/10/18 12: 40 Urine phencyclidine detection by screening method NEGATIVE NEGATIVE Urine benzodiazepines detection by screening method NEGATIVE NEGATIVE Urine cocaine detection NEGATIVE NEGATI VE Urine amphetamines detection by screening method N EGATIVE NEGATIVE Urine methamphetamine detection by screening method NEGATIVE NEGATIVE Urine cannabinoids detection by screening method N EGATIVE NEGATIVE Urine opiates detection by screening method NEGATI VE NEGATIVE Urine barbiturates detection NEGATIVE N EGATIVE Screening urine tricyclic antidepressants detection NEGATIVE NEGATIVE Urine methadone detection by screening method NEGA TIVE NEGATIVE Urine oxycodone detection NEGATIVE NEGA TIVE Urine propoxyphene detection NEGATIVE N EGATIVE Complete blood count (CBC) with automate d white blood cell (WBC) differential - 12/10/18 13:25 Blood leukocytes automated count (number/volume) 8.7 10*3/uL 4.3-11.0 Blood erythrocytes automated count (number/volume) 4.54 10*6/uL 4.35-5.85 Venous blood hemoglobin measurement (mass/volume) 13.1 g/dL 13.3-17.7 Blood hematocrit (volume fraction) 39 % 40-54 Automated erythrocyte mean corpuscular volume 86 [ foz_us] 80-99 Automated erythrocyte mean corpuscular h emoglobin (mass per erythrocyte) 29 pg 25-34 Automated erythrocyte mean corpuscular h emoglobin concentration measurement (mass/volume) 34 g/dL 32-36 Automated erythrocyte distribution width ratio 14. 5 % 10.0- 14.5 Automated blood platelet count (count/volume) 259 10*3/uL 130-400 Automated blood platelet mean volume measurement 9.3 [foz_us] 7.4-10.4 Automated blood neutrophils/100 leukocytes 66 % 42-75 Automated blood lymphocytes/100 leukocytes 24 % 12-44 Blood monocytes/100 leukocytes 9 % 0-12 Automated blood eosinophils/100 leukocytes 1 % 0-10 Automated blood basophils/100 leukocytes 0 % 0-10 Blood neutrophils automated count (number/volume) 5.8 10*3 1.8-7.8 Blood lymphocytes automated count (number/volume) 2.1 10*3 1.0-4.0 Blood monocytes automated count (number/volume) 0. 7 10*3 0.0-1.0 Automated eosinophil count 0.1 10*3/uL 0 .0-0.3 Automated blood basophil count (count/volume) 0.0 10*3/uL 0.0-0.1 Comprehensive metabolic panel - 12/10/18 13:25 Serum or plasma sodium measurement (moles/volume) 138 mmol/L 135-145 Serum or plasma potassium measurement (moles/volume) 3.4 mmol/L 3.6-5.0 Serum or plasma chloride measurement (moles/volume) 104 mmol/L 98-107 Carbon dioxide 19 mmol/L 21-32 Serum or plasma anion gap determination (moles/volume) 15 mmol/L 5-14 Serum or plasma urea nitrogen measurement (mass/volume ) 9 mg/dL 7-18 Serum or plasma creatinine measurement (mass/volume) 0.71 mg/dL 0.60-1.30 Serum or plasma urea nitrogen/creatinine mass ratio 13 NRG Serum or plasma creatinine measurement w ith calculation of estimated glomerular filtration rate > NRG Serum or plasma glucose measurement (mass/volume) 97 mg/dL 70-105 Serum or plasma calcium measurement (mass/volume) 9.5 mg/dL 8.5-10.1 Serum or plasma total bilirubin measurement (mass/volu me) 0.3 mg/dL 0.1-1.0 Serum or plasma alkaline phosphatase carson surement (enzymatic activity/volume) 61 U/L 40-136 Serum or plasma aspartate aminotransfera se measurement (enzymatic activity/volume) 19 U/L 5-34 Serum or plasma alanine aminotransferase measurement (enzymatic activity/volume) 13 U/L 0-55 Serum or plasma protein measurement (mass/volume) 7.0 g/dL 6.4-8.2 Serum or plasma albumin measurement (mass/volume) 4.3 g/dL 3.2-4.5 CALCIUM CORRECTED 9.3 mg/dL 8.5-10.1 Serum or plasma salicylates measurement (mass/volume) - 12/10/18 13:25 Serum or plasma salicylates measurement (mass/volume) < mg/dL 5.0-20.0 Serum or plasma acetaminophen measuremen t (mass/volume) - 12/10/18 13:25 Serum or plasma acetaminophen measurement (mass/volume ) < ug/mL 10-30 Serum or plasma ethanol measurement (mas s/volume) - 12/10/18 13:25 Serum or plasma ethanol measurement (mass/volume) 106 mg/dL <10 Complete blood count (CBC) with automate d white blood cell (WBC) differential - 04/30/19 21:00 Blood leukocytes automated count (number/volume) 10.9 10*3/uL 4.3-11.0 Blood erythrocytes automated count (number/volume) 4.59 10*6/uL 4.35-5.85 Venous blood hemoglobin measurement (mass/volume) 13.4 g/dL 13.3-17.7 Blood hematocrit (volume fraction) 40 % 40-54 Automated erythrocyte mean corpuscular volume 87 [ foz_us] 80-99 Automated erythrocyte mean corpuscular h emoglobin (mass per erythrocyte) 29 pg 25-34 Automated erythrocyte mean corpuscular h emoglobin concentration measurement (mass/volume) 34 g/dL 32-36 Automated erythrocyte distribution width ratio 13. 8 % 10.0- 14.5 Automated blood platelet count (count/volume) 249 10*3/uL 130-400 Automated blood platelet mean volume measurement 10.0 [foz_us] 7.4-10.4 Automated blood neutrophils/100 leukocytes 40 % 42-75 Automated blood lymphocytes/100 leukocytes 30 % 12-44 Blood monocytes/100 leukocytes 7 % 0-12 Automated blood eosinophils/100 leukocytes 22 % 0-10 Automated blood basophils/100 leukocytes 0 % 0-10 Blood neutrophils automated count (number/volume) 4.4 10*3 1.8-7.8 Blood lymphocytes automated count (number/volume) 3.3 10*3 1.0-4.0 Blood monocytes automated count (number/volume) 0. 8 10*3 0.0-1.0 Automated eosinophil count 2.4 10*3/uL 0 .0-0.3 Automated blood basophil count (count/volume) 0.0 10*3/uL 0.0-0.1 PT panel in platelet poor plasma by coag ulation assay - 04/30/19 21:00 Prothrombin time (PT) in platelet poor plasma by coagu lation assay 12.1 s 12.2-14.7 INR in platelet poor plasma or blood by coagulation as say 0.9 0.8-1.4 Activated partial thromboplastin time (a PTT) in platelet poor plasma bycoagulation assay - 04/30/19 21:00 Activated partial thromboplastin time (a PTT) in platelet poor plasma bycoagulation assay 32 s 24-35 Manual absolute plasma cell count - 04/08 08/24 21:00 Blood monocytes/100 leukocytes 4 % NR Manual blood segmented neutrophils/100 leukocytes 46 % NR Manual blood lymphocytes/100 leukocytes 26 % NR Manual eosinophils/100 leukocytes in nose 24 % [facility] Blood erythrocyte morphology finding identification NORMAL [facility] Comprehensive metabolic panel - 04/30/19 21:00 Serum or plasma sodium measurement (moles/volume) 139 mmol/L 135-145 Serum or plasma potassium measurement (moles/volume) 3.4 mmol/L 3.6-5.0 Serum or plasma chloride measurement (moles/volume) 109 mmol/L 98-107 Carbon dioxide 17 mmol/L 21-32 Serum or plasma anion gap determination (moles/volume) 13 mmol/L 5-14 Serum or plasma urea nitrogen measurement (mass/volume ) 10 mg/dL 7-18 Serum or plasma creatinine measurement (mass/volume) 0.84 mg/dL 0.60-1.30 Serum or plasma urea nitrogen/creatinine mass ratio 12 NRG Serum or plasma creatinine measurement w ith calculation of estimated glomerular filtration rate > NRG Serum or plasma glucose measurement (mass/volume) 115 mg/dL 70-105 Serum or plasma calcium measurement (mass/volume) 8.7 mg/dL 8.5-10.1 Serum or plasma total bilirubin measurement (mass/volu me) 0.1 mg/dL 0.1-1.0 Serum or plasma alkaline phosphatase carson surement (enzymatic activity/volume) 74 U/L 40-136 Serum or plasma aspartate aminotransfera se measurement (enzymatic activity/volume) 16 U/L 5-34 Serum or plasma alanine aminotransferase measurement (enzymatic activity/volume) 12 U/L 0-55 Serum or plasma protein measurement (mass/volume) 7.0 g/dL 6.4-8.2 Serum or plasma albumin measurement (mass/volume) 4.4 g/dL 3.2-4.5 CALCIUM CORRECTED 8.4 mg/dL 8.5-10.1 Magnesium - 04/30/19 21:00 Magnesium 1.9 mg/dL 1.6-2.4 Serum or plasma amylase measurement (enz ymatic activity/volume) - 04/30/19 21:00 Serum or plasma amylase measurement (enzymatic activit y/volume) 55 U/L 25-125 Lipase - 04/30/19 21:00 Lipase 40 U/L 8-78 Serum or plasma thyrotropin measurement by detection limit <=0.05 miu/l (units/volume) - 04/30/19 21:00 Serum or plasma thyrotropin measurement by detection limit <=0.05 miu/l (units/volume) 0.88 u[iU]/mL 0.35-4.94 Serum or plasma salicylates measurement (mass/volume) - 04/30/19 21:00 Serum or plasma salicylates measurement (mass/volume) < mg/dL 5.0-20.0 Serum or plasma acetaminophen measuremen t (mass/volume) - 04/30/19 21:00 Serum or plasma acetaminophen measurement (mass/volume ) < ug/mL 10-30 Serum or plasma ethanol measurement (mas s/volume) - 04/30/19 21:00 Serum or plasma ethanol measurement (mass/volume) 219 mg/dL <10 Complete urinalysis with reflex to cultu re - 04/30/19 22:12 Urine color determination YELLOW NRG Urine clarity determination CLEAR NR G Urine pH measurement by test strip 6.0 5-9 Specific gravity of urine by test strip 1.010 1.016-1.022 Urine protein assay by test strip, semi-quantitative NEGATIVE NEGATIVE Urine glucose detection by automated test strip NE GATIVE NEGATIVE Erythrocytes detection in urine sediment by light micr oscopy TRACE-I NEGATIVE Urine ketones detection by automated test strip NE GATIVE NEGATIVE Urine nitrite detection by test strip NEGATIVE NEGATIVE Urine total bilirubin detection by test strip NEGA TIVE NEGATIVE Urine urobilinogen measurement by automated test strip (mass/volume) 0.2 mg/dL < = 1.0 Urine leukocyte esterase detection by dipstick NEG ATIVE NEGATIVE Automated urine sediment erythrocyte cou nt by microscopy (number/high power field) [HPF] NRG Automated urine sediment leukocyte count by microscopy (number/high power field) [HPF] NRG Bacteria detection in urine sediment by light microsco py TRACE NRG Crystals detection in urine sediment by light microsco py NONE NRG Casts detection in urine sediment by light microscopy NONE NRG Mucus detection in urine sediment by light microscopy NEGATIVE NRG Complete urinalysis with reflex to culture NO NRG Urine drug screening test - 04/30/19 22: 12 Urine phencyclidine detection by screening method NEGATIVE NEGATIVE Urine benzodiazepines detection by screening method NEGATIVE NEGATIVE Urine cocaine detection NEGATIVE NEGATI VE Urine amphetamines detection by screening method N EGATIVE NEGATIVE Urine methamphetamine detection by screening method NEGATIVE NEGATIVE Urine cannabinoids detection by screening method N EGATIVE NEGATIVE Urine opiates detection by screening method NEGATI VE NEGATIVE Urine barbiturates detection NEGATIVE N EGATIVE Screening urine tricyclic antidepressants detection NEGATIVE NEGATIVE Urine methadone detection by screening method NEGA TIVE NEGATIVE Urine oxycodone detection NEGATIVE NEGA TIVE Urine propoxyphene detection NEGATIVE N EGATIVE Radiology Report from [facility] on 2012 11:31:00 DIAGNOSTIC [place] [facility] REPORT [facility] - [address], [place] [address] PHONE #: [phone] FAX #: [phone] Name: JOURDAN HOBSON Loc: [facility]ACEY Radiology No: [id number] : 1965 Age: 46 Sex: M Status: [facility] ER Unit No: [id number] Phys: FABBY Niko VieyraFernandez Gloria Acct: [id number] Reason For Exam: sob/cough/fever Exam Date: 06/09/2012 EXAMS: CPT CODE: [id number] CHEST AP/PA ONLY 64097 TIME OF STUDY: 06/10/2012 12:11 AM REASON FOR EXAM: sob/cough/fever COMPARISON: 12/03/2009 FINDINGS: AP view of the chest was obtained. Lungs: No pulmonary nodule, mass, or consolidation. Normal lung volume. Normal [...] PILAR DELANEY; LATRICIA TENA Transcribed Date/Time: 06/10/2012 (1126)Bluing Oven Tender: [email or web address] Printed Date/Time: 06/10/2012 (1001) BATCH NO: N/A PAGE 1 Signed Report Radiology Report from [facility] on 2013 16:25:00 DIAGNOSTIC [place] [facility] REPORT [facility] - [address] [place] [address] PHONE #: [phone] FAX #: [phone] Name: FILIPEJOURDAN Loc: ShashiHEIDE Radiology No: [id number] : 1965 Age: 48 Sex: M Status: REG ER Unit No: [id number] Phys: Gabriela Ramachandran Acct: [id number] Reason For Exam: left inguinal pain Exam Date: 02/01/2014 EXAMS: CPT CODE: [id number] CT ABD/PELVIS WITH CONTRAST 84352 REASON FOR EXAM: left inguinal pain . [...] 1 Signed Report (CONTINUED) DIAGNOSTIC IMAGING REPORT [facility] - [address] [address] PHONE #: [phone] FAX #: [phone] Name: [facility] No: [id number] : 1965 Age: 48 Sex: M Status: REG ER Unit No: [id number] Phys: Gabriela Ramachandran Acct: [id number] Reason For Exam: gianna for Exam: left inguinal pa Exam Date: 02/01/2014 --------- EXAMS: CPT CODE: [id number] CT ABD/PELVIS WITH CONTRAST 45687 <Continued> Possible small recurrent left inguinal hernia containing fat. Findings were discussed with Dr. Rome on 02/01/2014 4:09 PM. at 9840 Reported and signed by: JAMARI LOWERY MD CC: Aleksandra Martinez DO; Russel Rome MD Technologist: KALLIE DANIELS Transcribed Date/Time: 02/01/2014 (6022)Bluing Oven Tender: LISSA Printed Date/Time: 02/01/2014 (3038) BATCH NO: N/A PAGE 2 Signed Report Radiology Report from [facility] on 10/21/19 07:04:00 DIAGNOSTIC [place] [facility]ING REPORT [facility] - [address] [place] [address] PHONE #: [phone] FAX #: [phone] Name: JOURDAN HOBSON Loc: DIDI Radiology No: [id number] : 1965 Age: 48 Sex: M Status: REG Unit No: [id number] Phys: Trey Hernandez MD Acct: [id number] Reason For Exam: right fifth digit Exam Date: 10/20/2014 EXAMS: CPT CODE: [id number] FINGER RIGHT 87119 REASON FOR EXAM: Trauma right fifth digit. TIME OF EXAM: 10/20/2014 6:35 AM COMPARISON: None Findings: 3 views of right finger show no acute fracture or dislocation. Mild soft tissue swelling is seen at the tip of the right fifth finger. No radiopaque foreign bodies visualized. Impression: 1. No acute fracture or dislocation in right fifth finger. 2. Soft tissue swelling tip of right fifth finger. at 0658 Reported and signed by: MAICOL SAINZ MD CC: Trey Das MD Technologist: RICKIE STEINER Transcribed Date/Time: 10/20/2014 (0658)Bluing Oven Tender: KENNETH Printed Date/Time: 10/20/2014 (0704) BATCH NO: N/A PAGE 1 Signed Report Radiology Report from [id number] on 06/05 13:24:00 Reason For ExamChest painREPORTINDICATIO N: Chest pain.TECHNIQUE: Single view chest 1:15 PM.CORRELATION STUDY: 07/20/2003FINDINGS:The heart size, mediastinal configuration and pulmonary vascularity arerelatively stable. Slight prominent appearance of the ascending aorta. Thelungs are clear with no consolidating infiltrate. There is no significanteffusion or pneumothorax.IMPRESSION:1. Stable portable chest.Dictated on workstation:[id number] Line FINAL DICTATED BY: HAYDER TARANGO DODICTATED DT/TM: 06/05/2016 1:21 PMSIGNED BY: HAYDER TARANGO DOSIGNED (ELECTRONIC SIGNATURE): 06/05/2016 1:22 PMTECHNOLOGIST: BRANDY KLINE RT(R) Radiology Report from [id number] on 07/06 09:06:00 Reason For ExamPain in joint, elbow/uppe r armREPORTINDICATION: Fall with right elbow pain.TECHNIQUE: AP, oblique, and lateral views of the right elbow are obtained.COMPARISONS: None available.FINDINGS:No acute fracture or traumatic malalignment. Specifically, no radial headfracture is identified. No elbow joint effusion. Normal osseous mineralization.Joint space of the elbow is well maintained without marginal erosions.IMPRESSION:No acute fracture or traumatic malalignment involving the right elbow.Dictated on workstation:[id number] Line PRELIMINARY DICTATED BY: GEORGE DAVALOS MDDICTATED DT/TM: 07/06/2016 9:03 Encounters ACCT No. Visit Date/Time Discharge Status Pt. Type Provider Facility Loc./Unit Complaint [id number] 06/05/2016 21:50:00 06/05/2016 22:2 0:00 DIS Unknown [id number] 08/29/2015 11:11:00 016 12:01:00 DIS Emergency SecJazmine garcia DOdavid Gonzalez [facility]ED[facility] [id number] 04/17/2015 11:24:00 015 12:15:00 DIS [facility] [id number] 12/07/2014 19:54:00 015 20:32:00 DIS [facility] [id number] 10/20/2014 06:19:00 015 07:09:00 DIS [id number] 02/01/2014 12:17:00 014 16:50:00 DIS Emergency Latricia MACKAY, [facility].EDW [id number] 06/04/2013 16:30:00 014 17:23:00 [id number] 05/18/2013 15:15:00 014 16:17:00 DIS [id number] 02/23/2013 13:52:00 013 14:55:00 DIS Emergency Justin CAMARA, [facility].EDW [id number] 01/16/2013 19:29:00 013 19:59:00 DIS Emergency Aubrey MACKAY, [facility].EDW [id number] 11/25/2012 19:44:00 013 20:47:00 DIS [id number] 10/15/2012 20:24:00 013 23:19:00 DIS Emergency [place] Grajeda DO NAME [facility] W.EDW [id number] 06/09/2012 23:13:00 013 01:50:00 DIS Emergency Fernandez Vieyra DO [facility] W.EDS [id number] 12/26/2011 14:59:00 012 16:09:00 DIS Emergency Taras CAMARA [place] PROCTOR [facility] W.TJ [id number] 09/06/2015 22:43:00 6 13:50:00 DIS Inpatient JESSICA HANSEN [facility] [id number] 09/06/2015 23:59:35 Document Registration [id number] 02/18/2013 19:27:00 02/19/20 13 23:59:59 [facility] Emergency Darnell Disla MD [facility] [id number] 07/26/2017 08:34:00 018 23:59:59 CLS Emergency Heaton Jacob [facility] ED eval [id number] 07/06/2016 08:26:00 017 10:11:00 DIS Emergency Bhakta Michael [facility] ED fell and hurt right elbow [id number] 06/05/2016 12:14:00 017 22:39:00 DIS Emergency Heaton Jacob [facility] ED chest pain [id number] 03/20/2016 13:17:00 016 15:34:00 DIS Emergency Aftab Chung [facility] ED chronic back pain [id number] 03/05/2016 00:05:00 016 23:59:59 [facility] Emergency Artis Denise Vi [facility] on [facility] ED si, assessment [id number] 09/05/2015 17:04:00 23:59:59 CLS Emergency Georgette Ferraro [facility] on [facility] ED DEPRESSION [id number] 07/07/2016 05:16:34 Document Registration [id number] 06/06/2016 05:16:13 Document Registration [id number] 03/21/2016 05:16:10 Document Registration [id number] 03/17/2016 05:17:48 Document Registration [id number] 03/15/2016 05:18:51 Document Registration [id number] 03/14/2016 05:16:09 Document Registration [id number] 03/13/2016 05:16:20 Document Registration [id number] 03/12/2016 05:17:52 Document Registration [id number] 03/11/2016 05:18:26 Document Registration [id number] 03/10/2016 05:17:46 Document Registration [id number] 03/09/2016 05:17:42 Document Registration [id number] 03/08/2016 05:18:32 Document Registration [id number] 03/07/2016 05:16:13 Document Registration [id number] 03/06/2016 05:16:34 Document Registration [id number] 09/07/2015 05:15:50 Document Registration [id number] 09/06/2015 05:15:55 Document Registration [id number] 11/23/2018 16:20:00 11/23/2018 23:59: 59 CLS Outpatient WEIR, RODRI [facility] [id number] 07/26/2017 08:34:00 Document Registration [id number] 06/05/2016 12:14:00 Document Registration [id number] 03/05/2016 00:05:00 Document Registration [id number] 03/07/2018 17:12:00 03/08/2018 08:05: 00 DIS Outpatient CRUZ SMITH [facility] [id number] 01/08/2018 12:59:00 01/08/2018 18:38: 00 DIS Emergency MONIKA WILEY [facility] [id number] 08/15/2017 13:17:00 08/15/2017 15:23: 00 DIS Emergency MADIHA MORGAN [facility] 042 [id number] 04/30/2019 20:27:00 09:55:00 DIS Outpatient CAMERON AGUILAR DO, [facility] ER PSYCH EVAL [id number] 12/10/2018 12:08:00 019 19:15:00 DIS Emergency AMBROSIO BURKETT MD [facility] ER SUICIDAL [id number] 10/07/2018 15:28:00 019 16:33:00 DIS Emergency RANDALL KERN [facility] ER L LEG PAIN
--- NOTE | 2019-09-22 19:09 | ED Psychosocial ---
General Chief Complaint: Psych/Social Disorder Stated Complaint: SUICIDAL Source: patient Exam Limitations: no limitations (FRANSISCA LYNN APRN) History of Present Illness Date Seen by Provider: September 22, 2019 Time Seen by Provider: 19:09 Initial Comments To ER by EMS from home with reports of suicidal thoughts. He's been increasingly depressed over the past few weeks. He moved here from [place] 2 months ago. He lost his job time, has had a long trouble with depression and has never found a medication that works. Today he thought about overdosing as he had a pocketful of his girlfriend's pills which were Viibryd and Vraylar. He states the only thing that kept him from overdosing was the thought of his 1-year-old son whom he moved here to help take care of. He states he would prefer to not be admitted, would like to do outpatient treatment so that he can be around his son. Timing/Duration: constant Severity: moderate, severe Associated Symptoms: anxiety, suicidal ideation (FRANSISCA LYNN APRN) Allergies and Home Medications Allergies Coded Allergies: No Known Drug Allergies (Unverified , 10/07/18) Home Medications Hydrocodone Bit/Acetaminophen 1 Tab Tab, 1 EACH PO Q4-6HR PRN for PAIN-MODERATE Prescribed by: RANDALL KERN on 10/07/18 1622 Olanzapine 5 Mg Tablet, 5 MG PO ONCE Prescribed by: FRANSISCA LYNN on 09/22/19 2250 Patient Home Medication List Home Medication List Reviewed: Yes (FRANSISCA LYNN APRN) Review of Systems Constitutional: see HPI EENTM: see HPI Respiratory: no symptoms reported Cardiovascular: no symptoms reported Genitourinary: no symptoms reported Musculoskeletal: no symptoms reported Skin: no symptoms reported Psychiatric/Neurological: See HPI, Anxiety, Depressed (FRANSISCA LYNN APRN) Past Motqjfb-Enpsjf-Qitisq Hx Patient Social History Alcohol Beverage of Choice: Beer, Vodka Drug of Choice: METH, COCAINE, THC--DENIES IV USE Type Used: Cigarettes 2nd Hand Smoke Exposure: Yes Recent Hopitalizations: No (FRANSISCA LYNN APRN) Seasonal Allergies Seasonal Allergies: Yes (FRANSISCA LYNN APRN) Past Medical History Surgeries: Yes (RIGHT MIDDLE FINGER-TRAUMATIC AMPUTATION OF DISTAL ASPECT OF FINGER. ) Amputation, Orthopedic Respiratory: Yes COPD Cardiac: Yes High Cholesterol, Hypertension Neurological: No Genitourinary: No Gastrointestinal: No Musculoskeletal: No Endocrine: No HEENT: No Cancer: No Psychosocial: Yes (SEVERE DEPRESSIVE DISORDER; SUICIDAL IDEATIONS. POLYSUBSTANCE ABUSE. ) ADD/ADHD, Anxiety, Depression Integumentary: No (FRANSISCA LYNN APRN) Physical Exam Vital Signs - First Documented 09/22/19 18:59 Temp 36.7 Pulse 110 Resp 18 B/P (MAP) 129/104 (112) Pulse Ox 98 O2 Delivery Room Air (ENRICO MCFADDEN MD) Capillary Refill : (FRANSISCA LYNN APRN) Height, Weight, BMI Height: 5'2.00" Weight: 150lbs. oz. 68.428601zd; 25.00 BMI Method:Stated General Appearance: WD/WN, no apparent distress HEENT: PERRL/EOMI, normal ENT inspection Neck: non-tender, full range of motion Respiratory: no respiratory distress, no accessory muscle use Gastrointestinal: normal bowel sounds, soft Extremities: normal range of motion, non-tender Neurologic/Psychiatric: alert, normal mood/affect, oriented x 3 Appearance/Memory: appropriate appearance, appropriate insight Behavior/Eye Contact: cooperative, good eye contact, normal speech Thoughts/Hallucinations: normal thought pattern, no apparent hallucination Skin: normal color, warm/dry (FRANSISCA LYNN APRN) Progress/Results/Core Measures Results/Orders Lab Results Laboratory Tests Test 09/22/19 19:28 09/22/19 19:43 Range/Units Urine Color YELLOW Urine Clarity CLEAR Urine pH 5.5 5-9 Urine Specific [place] 1.025 H 1.016-1.022 Urine Protein NEGATIVE NEGATIVE Urine Glucose (UA) NEGATIVE NEGATIVE Urine Ketones NEGATIVE NEGATIVE Urine Nitrite NEGATIVE NEGATIVE Urine Bilirubin NEGATIVE NEGATIVE Urine Urobilinogen 0.2 < = 1.0 MG/DL Urine Leukocyte Esterase NEGATIVE NEGATIVE Urine RBC (Auto) 1+ H NEGATIVE Urine RBC RARE /HPF Urine WBC NONE /HPF Urine Squamous Epithelial Cells RARE /HPF Urine Crystals NONE /LPF Urine Bacteria NEGATIVE /HPF Urine Casts NONE /LPF Urine Mucus NEGATIVE /LPF Urine Culture Indicated NO Urine Opiates Screen NEGATIVE NEGATIVE Urine Oxycodone Screen POSITIVE H NEGATIVE Urine Methadone Screen NEGATIVE NEGATIVE Urine Propoxyphene Screen NEGATIVE NEGATIVE Urine Barbiturates Screen NEGATIVE NEGATIVE Ur Tricyclic Antidepressants Screen NEGATIVE NEGATIVE Urine Phencyclidine Screen NEGATIVE NEGATIVE Urine Amphetamines Screen POSITIVE H NEGATIVE Urine Methamphetamines Screen POSITIVE H NEGATIVE Urine Benzodiazepines Screen NEGATIVE NEGATIVE Urine Cocaine Screen NEGATIVE NEGATIVE Urine Cannabinoids Screen NEGATIVE NEGATIVE White Blood Count 10.8 4.3-11.0 10^3/uL Red Blood Count 4.83 4.35-5.85 10^6/uL Hemoglobin 14.2 13.3-17.7 G/DL Hematocrit 41 40-54 % Mean Corpuscular Volume 85 80-99 FL Mean Corpuscular Hemoglobin 29 25-34 PG Mean Corpuscular Hemoglobin Concent 35 32-36 G/DL Red Cell Distribution Width 14.7 H 10.0-14.5 % Platelet Count 361 130-400 10^3/uL Mean Platelet Volume 9.2 7.4-10.4 FL Neutrophils (%) (Auto) 62 42-75 % Lymphocytes (%) (Auto) 26 12-44 % Monocytes (%) (Auto) 10 0-12 % Eosinophils (%) (Auto) 1 0-10 % Basophils (%) (Auto) 0 0-10 % Neutrophils # (Auto) 6.8 1.8-7.8 X 10^3 Lymphocytes # (Auto) 2.8 1.0-4.0 X 10^3 Monocytes # (Auto) 1.1 H 0.0-1.0 X 10^3 Eosinophils # (Auto) 0.1 0.0-0.3 10^3/uL Basophils # (Auto) 0.0 0.0-0.1 10^3/uL Prothrombin Time 12.1 L 12.2-14.7 SEC INR Comment 0.9 0.8-1.4 Sodium Level 138 135-145 MMOL/L Potassium Level 4.1 3.6-5.0 MMOL/L Chloride Level 104 98-107 MMOL/L Carbon Dioxide Level 19 L 21-32 MMOL/L Anion Gap 15 H 5-14 MMOL/L Blood Urea Nitrogen 13 7-18 MG/DL Creatinine 0.93 0.60-1.30 MG/DL Estimat Glomerular Filtration Rate > 60 BUN/Creatinine Ratio 14 Glucose Level 96 70-105 MG/DL Calcium Level 9.5 8.5-10.1 MG/DL Corrected Calcium 8.5-10.1 MG/DL Total Bilirubin 0.3 0.1-1.0 MG/DL Aspartate Amino Transf (AST/SGOT) 25 5-34 U/L Alanine Aminotransferase (ALT/SGPT) 17 0-55 U/L Alkaline Phosphatase 73 40-136 U/L Total Protein 8.0 6.4-8.2 GM/DL Albumin 4.8 H 3.2-4.5 GM/DL Acetaminophen Level < 10 L 10-30 UG/ML Serum Alcohol 12 H <10 MG/DL (ENRICO MCFADDEN MD) Medications Given in ED Current Medications Medications Dose Ordered Sig/Josh Route Start Time Stop Time Status Last Admin Dose Admin Olanzapine 10 mg ONCE ONCE PO 09/22/19 20:45 09/22/19 20:46 DC 09/22/19 20:49 10 MG (ENRICO MCFADDEN MD) Vital Signs/I&O 09/22/19 18:59 Temp 36.7 Pulse 110 Resp 18 B/P (MAP) 129/104 (112) Pulse Ox 98 O2 Delivery Room Air (ENRICO MCFADDEN MD) Progress Progress Note : Time: 03:39 Progress Note Care of this patient was assumed from Fransisca Lynn at 23:00. Arrangements were being coordinated to transfer to [facility] in [place], [place] due to his initial expression of suicidal ideation. However, after taking Zyprexa patient calmed down considerably and reported his suicidal thinking had ceased. The impression of Fransisca Lynn was that he was no longer a danger to himself and could proceed with outpatient evaluation and treatment. In the meantime patient fell sleep and was allowed to sleep for several hours. Patient remained stable and easily arousable. We have now woken him and discussed the situation with him. He is calm and feels like he is no longer a danger to himself. It was noted that he tested positive for methamphetamines. Patient's girlfriend Whit with whom he lives states she is aware he had a remote history of m ethamphetamines but was not aware of any recent use. She reports he went out on a walk today and returned with unusual behavior. Both patient and Whit report that home is a stable and safe place for him to be. Whit feels comfortable taking him home and seeking outpatient care. A Zyprexa prescription was sent to the pharmacy by Fransisca Lynn. (ENRICO MCFADDEN MD) Diagnostic Imaging Diagonstic Imaging: CT Comments NAME: ADOLPH DENT [facility] REC#: [id number] PT STATUS: REG ER : 1965 PHYSICIAN: FRANSISCA LYNN APRN ADMIT DATE: 09/22/19/ER Signed Date of Exam:09/22/19 CT HEAD WO PROCEDURE: CT head without contrast. TECHNIQUE: Multiple contiguous axial images were obtained through the brain without the use of intravenous contrast. Auto Exposure Controls were utilized during the CT exam to meet ALARA standards for radiation dose reduction. INDICATION: Suicidal ideations. COMPARISON: None available. FINDINGS: CT of the head demonstrates no evidence of an acute intracranial abnormality. There is no evidence of intracranial hemorrhage. There is no extra-axial fluid collection, mass effect or shift. [place] and white matter differentiation appear preserved. There is no abnormal hypodensity within the basal ganglia. The ventricles are appropriate in size and configuration. There is no evidence of hydrocephalus. The basilar cisterns are patent. The posterior fossa is unremarkable. Mastoids appear clear. Minimal mucosal thickening in the ethmoids. Orbital contents are unremarkable. There is no calvarial abnormality. 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 IMPRESSION: 1. No CT evidence of an acute intracranial abnormality. Dictated by: Dictated on workstation # [id number] Dict: 09/22/191952 Trans: 09/22/191954 [facility] [id number] Interpreted by: JOANNE PHELPS MD Electronically signed by: JOANNE PHELPS MD 09/22/191954 (FRANSISCA LYNN APRN) Departure Communication (Admissions) Patient has bashed his head into the wall several times and now has a large hematoma on the midline. No loss of consciousness but does complain of a headache. [facility] does not have any psychiatric beds. [facility] not have any psychiatric beds. [facility] have a bed and I have faxed the ER note to them at this time 2217-now much more relaxed after the Zyprexa. Arousable to verbal stimuli. States that he gets that way whenever he gets "worked up". He states he is thinking much more clearly now and does not want to hurt himself. States that he has his child to live for. (FRANSISCA LYNN APRN) Impression Primary Impression: Anxiety Additional Impressions: Depression Qualified Codes: F32.9 - Major depressive disorder, single episode, unspecified Agitation Positive urine drug screen Scalp hematoma Qualified Codes: S00.03XA - Contusion of scalp, initial encounter Disposition: HOME, SELF-CARE Condition: Improved Departure-Patient Inst. Decision time for Depature: 22:19 (FRANSISCA LYNN APRN) Decision time for Depature: 03:43 (ENRICO MCFADDEN MD) Referrals: NO,LOCAL PHYSICIAN (PCP) Primary Care Physician Patient Instructions: ALCOHOL AND SUBSTANCE ABUSE, Medicines for Depression, Suicide Prevention, Screening for Depression Add. Discharge Instructions: Follow-up with a primary care provider at [facility] as soon as possible. Seek behavioral health services as well for treatment of depression, agitation, and substance abuse. For urgent behavioral health needs you may call the [facility] Ideaxis Line at [phone] ([phone]). Alternatively, you may call [phone] or return to the emergency room. Return to care or call your doctor if you have any further problems or concerns. All discharge instructions reviewed with patient and/or family. Voiced understanding. Scripts Olanzapine (Zyprexa) 5 Mg Tablet 5 MG PO ONCE, #10 TAB Prov: FRANSISCA LYNN APRN 09/22/19 Copy Copies To 1: CRISTINA MILLARD PETER J APRN September 22, 2019 19:09 ENRICO MCFADDEN MD September 23, 2019 03:45
[2019-09-22] MEDS ORDERED: ALPRAZolam 0.5 MG (XANAX) TAB PO SCH (19:15)
--- NOTE | 2019-09-22 19:24 | NUR ---
PT BEGINS TO STIKE HIS HEAD AGAINST THE WALL, SECURITY STAFF AND PROVIDER NOTIFIED. PT ENCOURAGED TO STOP BEHAVIOR AND COMPLIED.
[2019-09-22 19:39] LABS: BILIRUBIN,URINE NEGATIVE (NEGATIVE); CLARITY,URINE CLEAR; COLOR,URINE YELLOW; GLUCOSE, URINE (UA) NEGATIVE (NEGATIVE); KETONES,URINE NEGATIVE (NEGATIVE); LEUKOCYTE ESTERASE ,URINE NEGATIVE (NEGATIVE); NITRITE,URINE NEGATIVE (NEGATIVE); PH,URINE 5.5 (5-9); PROTEIN,URINE NEGATIVE (NEGATIVE)
[2019-09-22 19:48] LABS: BACTERIA,URINE NEGATIVE /HPF; RBC,URINE RARE /HPF; SQUAMOUS EPITHELIAL CELL,UR RARE /HPF
[2019-09-22 19:50] LABS: BASOPHILS % (AUTO) 0 % (0-10); EOSINOPHILS # (AUTO) 0.1 10^3/uL (0.0-0.3); EOSINOPHILS % (AUTO) 1 % (0-10); HEMATOCRIT 41 % (40-54); HEMOGLOBIN 14.2 G/DL (13.3-17.7); LYMPHOCYTES # (AUTO) 2.8 X 10^3 (1.0-4.0); LYMPHOCYTES % (AUTO) 26 % (12-44); MEAN CORPUSCULAR HEMOGLOBIN 29 PG (25-34); MEAN CORPUSCULAR HGB CONC 35 G/DL (32-36); MEAN CORPUSCULAR VOLUME 85 FL (80-99); MEAN PLATELET VOLUME 9.2 FL (7.4-10.4); MONOCYTES # (AUTO) 1.1 X 10^3 (0.0-1.0); MONOCYTES % (AUTO) 10 % (0-12); NEUTROPHILS # (AUTO) 6.8 X 10^3 (1.8-7.8); NEUTROPHILS % (AUTO) 62 % (42-75); PLATELET COUNT 361 10^3/uL (130-400); RED CELL DISTRIBUTION WIDTH 14.7 % (10.0-14.5); WHITE BLOOD COUNT 10.8 10^3/uL (4.3-11.0)
[2019-09-22 19:50] LABS: BARBITURATE SCREEN URINE NEGATIVE (NEGATIVE); BENZODIAZEPINES SCREEN URINE NEGATIVE (NEGATIVE); CANNABINOID SCREEN, URINE NEGATIVE (NEGATIVE); COCAINE SCREEN URINE NEGATIVE (NEGATIVE); METHADONE STAT NEGATIVE (NEGATIVE); OPIATE SCREEN URINE NEGATIVE (NEGATIVE); PROPOXYPHENE STAT NEGATIVE (NEGATIVE); TRICYCLIC ANTIDEPRESSANTS SCRE NEGATIVE (NEGATIVE)
[2019-09-22 19:51] LABS: AMPHETAMINE SCREEN, URINE POSITIVE (NEGATIVE); METHAMPHETAMINE SCREEN URINE S POSITIVE (NEGATIVE); OXYCODONE STAT POSITIVE (NEGATIVE)
--- NOTE | 2019-09-22 19:57 | Diagnostic Imaging Report ---
PROCEDURE: CT head without contrast. TECHNIQUE: Multiple contiguous axial images were obtained through the brain without the use of intravenous contrast. Auto Exposure Controls were utilized during the CT exam to meet ALARA standards for radiation dose reduction. INDICATION: Suicidal ideations. COMPARISON: None available. FINDINGS: CT of the head demonstrates no evidence of an acute intracranial abnormality. There is no evidence of intracranial hemorrhage. There is no extra-axial fluid collection, mass effect or shift. [place] and white matter differentiation appear preserved. There is no abnormal hypodensity within the basal ganglia. The ventricles are appropriate in size and configuration. There is no evidence of hydrocephalus. The basilar cisterns are patent. The posterior fossa is unremarkable. Mastoids appear clear. Minimal mucosal thickening in the ethmoids. Orbital contents are unremarkable. There is no calvarial abnormality. 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 IMPRESSION: 1. No CT evidence of an acute intracranial abnormality. Dictated by: Dictated on workstation # [id number]
[2019-09-22 20:00] LABS: INR 0.9 (0.8-1.4); PROTHROMBIN TIME PATIENT 12.1 SEC (12.2-14.7)
[2019-09-22 20:07] LABS: ALANINE AMINOTRANSFERASE 17 U/L (0-55); ALBUMIN 4.8 GM/DL (3.2-4.5); ALKALINE PHOSPHATASE 73 U/L (40-136); BILIRUBIN,TOTAL 0.3 MG/DL (0.1-1.0); BUN/CREATININE RATIO 14; CALCIUM 9.5 MG/DL (8.5-10.1); CARBON DIOXIDE 19 MMOL/L (21-32); CHLORIDE 104 MMOL/L (98-107); CREATININE SERUM 0.93 MG/DL (0.60-1.30); GFR ESTIMATED > 60; GLUCOSE 96 MG/DL (70-105); POTASSIUM 4.1 MMOL/L (3.6-5.0); SODIUM 138 MMOL/L (135-145)
[2019-09-22 20:12] LABS: ACETAMINOPHEN < 10 UG/ML (10-30)
[2019-09-22] MEDS ORDERED: OLANZapine 5 MG ODT (ZyPREXA ZYDIS) PO ONE (20:45)
[2019-09-22] MEDS ORDERED: OLAN5TAB3 PO (22:50)
--- NOTE | 2019-09-23 00:05 | NUR ---
PT APPEARS TO BE ASLEEP, VITALS STABLE
--- NOTE | 2019-09-23 01:00 | NUR ---
PT APPEARS TO BE SLEEPING, VITALS STABLE
--- NOTE | 2019-09-23 03:10 | NUR ---
PT APPEARS TO BE SLEEPING, DR MCFADDEN IN ROOM TO ASSESS PT.
[2019-09-23 03:57] VITALS: BP 117/88
== END 2019-09-23 04:07 | disposition home or self-care (01) ==
LOC: EDUNIT# 18:58 → ER 18:59
DX: S00.03XA Contusion of scalp, initial encounter (principal); F41.9 Anxiety disorder, unspecified; F32.9 Major depressive disorder, single episode, unspecified; R45.1 Restlessness and agitation; R82.998 Other abnormal findings in urine; Z77.22 Contact with and (suspected) exposure to environmental tobacco smoke (acute) (chronic); W22.8XXA Striking against or struck by other objects, initial encounter
CPT/HCPCS: 36415; 70450; 80053; 80306; 80320; 80329; 81000; 85025; 85610

== ENCOUNTER 2023-02-20 19:58 | Inpatient (IN) | payer SELFPAY ==
[~2023-02-20] VITALS: Ht 157.5 cm; Wt 64.8 kg
[~2023-02-20 19:58] MED LIST changes: -LISI10TA2; +LISI10TA25; +OLAN5TAB3 PO
[2023-02-20 20:09] LABS: BASOPHILS # (AUTO) 0.1 10^3/uL (0.0-0.1); BASOPHILS % (AUTO) 1 % (0-10); EOSINOPHILS # (AUTO) 0.2 10^3/uL (0.0-0.3); EOSINOPHILS % (AUTO) 2 % (0-10); HEMATOCRIT 40 % (40-54); HEMOGLOBIN 13.4 g/dL (13.3-17.7); LYMPHOCYTES # (AUTO) 2.2 10^3/uL (1.0-4.0); LYMPHOCYTES % (AUTO) 22 % (12-44); MEAN CORPUSCULAR HEMOGLOBIN 29 pg (25-34); MEAN CORPUSCULAR HGB CONC 34 g/dL (32-36); MEAN CORPUSCULAR VOLUME 85 fL (80-99); MEAN PLATELET VOLUME 9.1 fL (9.0-12.2); MONOCYTES # (AUTO) 1.3 10^3/uL (0.0-1.0); MONOCYTES % (AUTO) 13 % (0-12); NEUTROPHILS # (AUTO) 5.8 10^3/uL (1.8-7.8); NEUTROPHILS % (AUTO) 58 % (42-75); PLATELET COUNT 311 10^3/uL (130-400); WHITE BLOOD COUNT 10.1 10^3/uL (4.3-11.0)
--- NOTE | 2023-02-20 20:12 | ED General ---
General Chief Complaint: Overdose Stated Complaint: OVERDOSE Nursing Triage Note: PT TO [facility] VIA [facility] FROM HOME W C/O FENTANYL OD. ADMIN 2 DOSES OF IM NARCAN PRIOR TO EMS ARRIVAL. PT WAS NOT BREATHING W CYANOTIC LIPS ACCORDING TO WHO STARTED CPR. PT REPORTS HE SMOKED FENTANYL AT APPROX 1830. PT C/O CP, DIAPHORESIS NOTED. EMS REPORTS PT HAS BEEN A&O SX ARRIVAL ON SCENE, EMS INITIATED 20G LEFT AC, ADMIN 324 ASA AND 1X NITRO SL. Source of Information: Patient, EMS History of Present Illness Date Seen by Provider: Feb 20, 2023 Time Seen by Provider: 19:57 Initial Comments PT ARRIVES VIA EMS FROM HOME PT "SMOKED TOO MUCH FENTANYL" -- REPORTED TO EMS THAT PT STOPPED BREATHING AND WAS BLUE, AND SHE STARTED CPR--GAVE CHEST COMPRESSIONS AND SHE GAVE 2 DOSES OF NARCAN IM IT IS UNKNOWN IF PT LOST PULSE WHEN HE STOPPED BREATHING WHEN EMS ARRIVED AT SCENE, PT AWAKE, ALERT, ORIENTED X 4, PROFUSELY DIAPHORETIC AND C/O CHEST PAIN PT HYPERTENSIVE IN 180'S SYSTOLIC FOR EMS, THEY INITIALLY APPLIED NITROPASTE, THEN REMOVED IT AND GAVE SL NTG WITH SOME RELIEF EMS ALSO GAVE 324 MG ASPIRIN PT REPORTEDLY SMOKED THE FENTANYL AROUND 1830 TONIGHT. PT STATES HE ALSO SMOKED KRATOM ALONG WITH IT PT ADMITS TO IV METHAMPHETAMINE USE, WELL SMOKING METH--HE CLAIMS HE LAST USED METH 3 DAYS AGO HE ALSO SMOKES MARIJUANA WELL REGULAR CIGARETTES HE DENIES ANY ALCOHOL TONIGHT PCP: NONE Allergies and Home Medications Allergies Coded Allergies: No Known Drug Allergies (Unverified , 10/07/18) Patient Home Medication List Home Medication List Reviewed: Yes Hydrocodone Bit/Acetaminophen (Lortab 5 Mg Tablet) 1 Tab Tab, 1 EACH PO Q4-6HR PRN for PAIN-MODERATE Prescribed by: RANDALL KERN on 10/07/18 1622 Lisinopril (Lisinopril) 10 Mg Tablet, (Reported) Entered as Reported by: SHALOM DIEHL on 10/07/18 153 Olanzapine (Zyprexa) 5 Mg Tablet, 5 MG PO ONCE Prescribed by: FRANSISCA MORRIS on 09/22/19 2250 [Advair] , (Reported) Entered as Reported by: SHALOM DIEHL on 10/07/18 153 [Amoxicillin] , (Reported) Entered as Reported by: SHALOM DIEHL on 10/07/18 1537 [Lipitor] , (Reported) Entered as Reported by: SHALOM DIEHL on 10/07/18 1536 Review of Systems Review of Systems Constitutional: diaphoresis EENTM: no symptoms reported Respiratory: see HPI Cardiovascular: see HPI Gastrointestinal: no symptoms reported Genitourinary: no symptoms reported Musculoskeletal: no symptoms reported Skin: no symptoms reported Psychiatric/Neurological: See HPI Hematologic/Lymphatic: No Symptoms Reported Immunological/Allergic: no symptoms reported Past Siyisvh-Ofcsum-Uqivgr Hx Patient Social History Tobacco Use?: Yes Tobacco type used: Cigarettes Smoking Status: Current Everyday Smoker Use of E-Cig and/or Vaping dev: No Substance use?: Yes Substance type: Methamphetamine, Opiates/Opioids, Marijuana Additional substance use comme: KRATOM; FENTANYL, COCAINE Substance frequency: Daily Alcohol Use?: Yes Immunizations Up To Date Tetanus Booster (TDap): Unknown PED Vaccines UTD: Yes Seasonal Allergies Seasonal Allergies: Yes Past Medical History Surgeries: Yes (RIGHT MIDDLE FINGER-TRAUMATIC AMPUTATION OF DISTAL ASPECT OF FINGER. ) Amputation, Orthopedic Respiratory: Yes COPD Cardiac: Yes High Cholesterol, Hypertension Neurological: No Genitourinary: No Gastrointestinal: No Musculoskeletal: No Endocrine: No HEENT: No Cancer: No Psychosocial: Yes (SEVERE DEPRESSIVE DISORDER; SUICIDAL IDEATIONS. POLYSUBST ANCE ABUSE. ) ADD/ADHD, Anxiety, Depression Integumentary: No Family Medical History SOCIAL HISTORY: -SMOKES 2 PPD -ETOH--"OCCASIONAL USE" NOW, PER PT ON 02/20/23, BUT HAS HISTORY OF HEAVY, DAILY USE -DRUGS--+ IV METH USE, ALSO SMOKES IT, SMOKES FENTANYL, KRATOM, THC, COCAINE, OTHERS. MULTIPLE PSYCH ADMITS Physical Exam Vital Signs Vital Signs - First Documented 02/20/23 20:00 Temp 36.4 Pulse 80 Resp 16 B/P (MAP) 166/111 (129) Pulse Ox 96 O2 Delivery Room Air O2 Flow Rate 2.00 Capillary Refill : Less Than 3 Seconds Height, Weight, BMI Height: 5'2.00" Weight: 150lbs. oz. 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 Skin: Cool, Diaphoresis (PROFUSELY DIAPHORETIC) Progress/Results/Core Measures Suspected Sepsis SIRS Temperature: Pulse: 80 Respiratory Rate: 16 Laboratory Tests 02/20/23 20:03: White Blood Count 10.1 Blood Pressure 166 /111 Mean: 129 Laboratory Tests 02/20/23 20:03: Creatinine 0.84, INR Comment 0.9, Platelet Count 311, Total Bilirubin 0.2 Results/Orders Lab Results Laboratory Tests Test 02/20/23 20:03 02/20/23 22:38 02/20/23 23:03 Range/Units White Blood Count 10.1 4.3-11.0 10^3/uL Red Blood Count 4.63 4.30-5.52 10^6/uL Hemoglobin 13.4 13.3-17.7 g/dL Hematocrit 40 40-54 % Mean Corpuscular Volume 85 80-99 fL Mean Corpuscular Hemoglobin 29 25-34 pg Mean Corpuscular Hemoglobin Concent 34 32-36 g/dL Red Cell Distribution Width 12.9 10.0-14.5 % Platelet Count 311 130-400 10^3/uL Mean Platelet Volume 9.1 9.0-12.2 fL Immature Granulocyte % (Auto) 5 % Neutrophils (%) (Auto) 58 42-75 % Lymphocytes (%) (Auto) 22 12-44 % Monocytes (%) (Auto) 13 H 0-12 % Eosinophils (%) (Auto) 2 0-10 % Basophils (%) (Auto) 1 0-10 % Neutrophils # (Auto) 5.8 1.8-7.8 10^3/uL Lymphocytes # (Auto) 2.2 1.0-4.0 10^3/uL Monocytes # (Auto) 1.3 H 0.0-1.0 10^3/uL Eosinophils # (Auto) 0.2 0.0-0.3 10^3/uL Basophils # (Auto) 0.1 0.0-0.1 10^3/uL Immature Granulocyte # (Auto) 0.5 H 0.0-0.1 10^3/uL Prothrombin Time 12.0 L 12.2-14.7 SEC INR Comment 0.9 0.8-1.4 Activated Partial Thromboplast Time 28 24-35 SEC Sodium Level 132 L 135-145 MMOL/L Potassium Level 3.5 L 3.6-5.0 MMOL/L Chloride Level 97 L 98-107 MMOL/L Carbon Dioxide Level 22 21-32 MMOL/L Anion Gap 13 5-14 MMOL/L Blood Urea Nitrogen 13 7-18 MG/DL Creatinine 0.84 0.60-1.30 MG/DL Estimat Glomerular Filtration Rate 102 BUN/Creatinine Ratio 15 Glucose Level 153 H 70-105 MG/DL Calcium Level 9.2 8.5-10.1 MG/DL Corrected Calcium 9.0 8.5-10.1 MG/DL Magnesium Level 2.1 1.6-2.4 MG/DL Total Bilirubin 0.2 0.1-1.0 MG/DL Aspartate Amino Transf (AST/SGOT) 30 5-34 U/L Alanine Aminotransferase (ALT/SGPT) 26 0-55 U/L Alkaline Phosphatase 104 40-136 U/L Total Creatine Kinase 122 30-200 U/L Creatine Kinase MB 3.2 <6.6 NG/ML Troponin I < 0.028 0.093 H <0.028 NG/ML B-Type Natriuretic Peptide 119.9 H <100.0 PG/ML Total Protein 6.9 6.4-8.2 GM/DL Albumin 4.3 3.2-4.5 GM/DL Amylase Level 50 25-125 U/L Lipase 31 8-78 U/L Salicylates Level < 5.0 L 5.0-20.0 MG/DL Acetaminophen Level < 10 L 10-30 UG/ML Serum Alcohol < 10 <10 MG/DL Urine Color YELLOW Urine Clarity CLEAR Urine pH 5.5 5-9 Urine Specific [place] 1.010 L 1.016-1.022 Urine Protein NEGATIVE NEGATIVE Urine Glucose (UA) NEGATIVE NEGATIVE Urine Ketones NEGATIVE NEGATIVE Urine Nitrite NEGATIVE NEGATIVE Urine Bilirubin NEGATIVE NEGATIVE Urine Urobilinogen 0.2 < = 1.0 MG/DL Urine Leukocyte Esterase NEGATIVE NEGATIVE Urine RBC (Auto) NEGATIVE NEGATIVE Urine RBC RARE /HPF Urine WBC RARE /HPF Urine Squamous Epithelial Cells NONE /HPF Urine Crystals NONE /LPF Urine Bacteria NEGATIVE /HPF Urine Casts NONE /LPF Urine Mucus NEGATIVE /LPF Urine Culture Indicated NO Urine Opiates Screen NEGATIVE NEGATIVE Urine Oxycodone Screen NEGATIVE NEGATIVE Urine Methadone Screen NEGATIVE NEGATIVE Urine Propoxyphene Screen NEGATIVE NEGATIVE Urine Barbiturates Screen NEGATIVE NEGATIVE Ur Tricyclic Antidepressants Screen NEGATIVE NEGATIVE Urine Phencyclidine Screen NEGATIVE NEGATIVE Urine Amphetamines Screen POSITIVE H NEGATIVE Urine Methamphetamines Screen POSITIVE H NEGATIVE Urine Benzodiazepines Screen NEGATIVE NEGATIVE Urine Cocaine Screen NEGATIVE NEGATIVE Urine Cannabinoids Screen POSITIVE H NEGATIVE My Orders Orders - CAMERON AGUILAR K DO Ua Culture If Indicated (02/20/23 20:02) Cbc And Automated Diff (02/20/23 20:02) Comprehensive Metabolic Panel (02/20/23 20:) Alcohol (02/20/23 20:02) Drug Screen Stat (Urine) (02/20/23 20:02) Acetaminophen (02/20/23 20:02) Salicylate (02/20/23 20:02) Ed Iv/Invasive Line Start (02/20/23 20:02) Monitor-Rhythm Ecg Trace Only (02/20/23 20:02) Ed Iv/Invasive Line Start (02/20/23 20:02) Ekg Tracing (02/20/23 20:02) Bnp [place] (02/20/23 20:05) Protime With Inr (02/20/23 20:05) Partial Thromboplastin Time (02/20/23 20:05) Chest 1 View, Ap/Pa Only (02/20/23 20:05) Amylase (02/20/23 20:03) Creatine Kinase (02/20/23 20:03) Creatine Kinase Mb (02/20/23 20:03) Lipase (02/20/23 20:03) Magnesium (02/20/23 20:03) Ed Iv/Invasive Line Start (02/20/23 20:48) Ns Iv 1000 Ml (Ns Iv 1000 Ml) (02/20/23 21:00) Troponin I Crystal (02/20/23 20:50) Ct Angio Chest W (R/O Pe) (02/20/23 21:02) Iohexol Injection (Omnipaque 350 Mg/Ml 1 (02/20/23 21:15) Received Contrast (Hold Metformin- Contr (02/20/23 21:15) Ns (Ivpb) 100 Ml (Sodium Chloride 0.9% 1 (02/20/23 21:15) Sodium Chloride Flush (Catheter Flush Sy (02/20/23 21:15) Metoprolol Succinate (Xl) Tab (Metoprolo (02/20/23 22:15) Hydralazine Injection (Hydralazine Injec (02/20/23 22:15) Ekg Tracing (02/20/23 22:55) Troponin I [place] (02/20/23 22:55) Enoxaparin Injection (Enoxaparin Injecti (02/21/23 00:00) Medications Given in ED Current Medications Medications Dose Ordered Sig/Josh Route Start Time Stop Time Status Last Admin Dose Admin Enoxaparin Sodium 70 mg ONCE ONCE SC 02/21/23 00:00 02/21/23 00:02 DC 02/21/23 00:11 70 MG Hydralazine HCl 10 mg ONCE ONCE IV 02/20/23 22:15 02/20/23 22:16 DC 02/20/23 22:22 10 MG Iohexol 100 ml ONCE ONCE IV 02/20/23 21:15 02/20/23 21:16 DC 02/20/23 21:47 61 ML Sodium Chloride 100 ml ONCE ONCE IV 02/20/23 21:15 02/20/23 21:16 DC 02/20/23 21:47 68 ML Vital Signs/I&O 02/20/23 02/20/23 02/20/23 20:00 20:00 20:07 Temp 36.4 Pulse 80 Resp 16 B/P (MAP) 166/111 (129) Pulse Ox 96 98 O2 Delivery Room Air Nasal Cannula Nasal Cannula O2 Flow Rate 2.00 2.00 02/21/23 00:00 Intake Total 1000 ml Balance 1000 ml Capillary Refill : Less Than 3 Seconds Blood Pressure Mean: 129 Progress Note : Progress Note VITALS ON ARRIVAL: TEMP 36.4, HR 80, RR 16, BP 166/111, O2 SAT 96% ON ROOM AIR GIVEN: -IV FLUIDS -TOPROL XL -HYDRALAZINE -LOVENOX LABS -CBC NORMAL -CMP NA 132, K 3.5, GLU 153, OTHERWISE NORMAL -MG NORMAL -TROPONIN NEGATIVE INITIALLY, REPEAT TROPONIN IS ELEVATED -BNP 119 -PT/PTT/INR NORMAL -CK/CK-MB,MYOGLOBIN NORMAL -ETOH NEGATIVE -ACETAMINOPHEN NEGATIVE -SALICYLATES NEGATIVE -UDS + AMPHETAMINES/METHAMPHETAMINES, THC EKG --NO STEMI REPEAT EKG UNCHANGED CXR UNREMARKABLE CT CHEST ANGIOGRAM DOES NOT SHOW P.E. OR ACUTE PROCESS. PT DOES HAVE 4.5 CM AORTIC ANEURYSM AND VASCULAR CALCIFICATIONS PT HAD NO COMPLAINTS OF CHEST PAIN OR ANY OTHER COMPLAINTS FOR REMAINDER OF ER STAY PT OBSERVED IN ER AND 3 HOUR REPEAT EKG AND TROPONIN LEVEL DONE--WHICH IS ELEVA HECTOR ON REPEAT TESTING. BP DOWN WITH MEDICATIONS. NO DETERIORATION IN PT'S CONDITION DURING ER STAY DISCUSSED TEST RESULTS, NEED FOR ADMIT AND PT IS AGREEABLE TO PLAN ECG Initial ECG Impression Date: Feb 20, 2023 Initial ECG Impression Time: 20:05 Initial ECG Rate: 79 Initial ECG Rhythm: Normal Sinus Initial ECG Intervals [place] 141 QRS 90 QT/QTC 397/432 Initial ECG Impression: Nonspecific Changes (IVCD) Initial ECG Comparisson: Changed (CHANGED FROM 2018--IVCD DELAY NOW PRESENT) Comment INTERPRETED BY ME EKG : EKG Time: 23:08 Rate: 84 Rhythm: Normal Sinus Intervals [place] 138 QRS 85 QT QTC 368/410 ECG Comparisson: Unchanged ECG Impression: Nonspecific Changes Comment INTERPRETED BY ME Diagnostic Imaging Comments CXR--PER RADIOLOGIST REPORT AT 2047 Heart is borderline enlarged. Mediastinal silhouette is unremarkable. The lungs are clear. There is no pneumothorax or pleural fluid. IMPRESSION: Borderline cardiomegaly with no acute infiltrate or pleural fluid. CT CHEST ANGIOGRAM--PER RADIOLOGIST REPORT AT 2202 There is no prior study for comparison. The pulmonary parenchymal vessels are well-opacified with no CT evidence of pulmonary emboli. The thoracic aorta shows some plaquing but no overt dissection. Bolus timing for the aorta was somewhat suboptimal. There are extensive coronary calcifications. The ascending aorta was aneurysmal measuring 4.5 cm. Lung windows demonstrated dependent atelectatic changes but no consolidation. There is no pleural or pericardial fluid. There were no overt bony abnormalities. IMPRESSION: No CT evidence of pulmonary emboli or acute aortic pathology. There is a 4.5 cm ascending aortic aneurysm. There is no pleural or pericardial fluid or pneumothorax. There are extensive coronary artery calcifications and cardiomegaly. Visualized portions of the upper abdomen show ectasia of the abdominal aorta, suggest full abdominal CT. Reviewed: Reviewed by [facility] Departure Communication (Admissions) 5824--SPOKE WITH DR. WILLS, COLOR TELEVISION CONSOLE MONITOR, ORDERS NOTED 2347--SPOKE WITH DR. ALMEIDA, HOSPITALIST. ACCEPTS PT FOR ADMIT 2349--REPORT TO E-ICU PHYSICIAN Impression Primary Impression: Drug overdose Additional Impressions: Elevated troponin Chest pain S/P CPR S/P RESPIRATORY ARREST Polysubstance abuse Hypertensive urgency Disposition: ADMITTED INPATIENT Condition: Stable Admissions Decision to Admit Reason: Admit from ER (General) Decision to Admit/Date: Feb 21, 2023 Time/Decision to Admit Time: 00:01 Departure-Patient Inst. Referrals: NO,LOCAL PHYSICIAN (PCP/Family) Primary Care Physician Patient Instructions: ALCOHOL AND SUBSTANCE ABUSE CAMERON AGUILAR DO Feb 20, 2023 20:12
--- NOTE | 2023-02-20 20:27 | Diagnostic Imaging Report ---
INDICATION: Chest pain Frontal chest obtained at 0818 p.m. Heart is borderline enlarged. Mediastinal silhouette is unremarkable. The lungs are clear. There is no pneumothorax or pleural fluid. IMPRESSION: Borderline cardiomegaly with no acute infiltrate or pleural fluid. Dictated by: Dictated on workstation # [id number]
[2023-02-20 20:30] LABS: INR 0.9 (0.8-1.4)
[2023-02-20 20:48] LABS: ALANINE AMINOTRANSFERASE 26 U/L (0-55); ALBUMIN 4.3 GM/DL (3.2-4.5); ALKALINE PHOSPHATASE 104 U/L (40-136); AMYLASE 50 U/L (25-125); BILIRUBIN,TOTAL 0.2 MG/DL (0.1-1.0); BUN/CREATININE RATIO 15; CALCIUM 9.2 MG/DL (8.5-10.1); CARBON DIOXIDE 22 MMOL/L (21-32); CHLORIDE 97 MMOL/L (98-107); CREATINE KINASE 122 U/L (30-200); CREATININE SERUM 0.84 MG/DL (0.60-1.30); GFR ESTIMATED 102; GLUCOSE 153 MG/DL (70-105); MAGNESIUM 2.1 MG/DL (1.6-2.4); POTASSIUM 3.5 MMOL/L (3.6-5.0); SALICYLATE < 5.0 MG/DL (5.0-20.0); SODIUM 132 MMOL/L (135-145); TOTAL PROTEIN 6.9 GM/DL (6.4-8.2)
[2023-02-20 20:52] LABS: ACETAMINOPHEN < 10 UG/ML (10-30)
[2023-02-20 20:54] LABS: CREATINE KINASE MB 3.2 NG/ML (<6.6)
[2023-02-20] MEDS ORDERED: NS IV 1000 ML 1,000 ML IV SCH (21:00)
[2023-02-20] MEDS ORDERED: CATHETER FLUSH 10 ML SYR IV PRN (21:15)
[2023-02-20] MEDS ORDERED: HOLD METFORMIN - RECEIVED CONTRAST 20 ML VIAL IV SCH (21:15)
[2023-02-20] MEDS ORDERED: IOHEXOL 350 MG/ML 100 ML (OMNIPAQUE 350) VIAL IV ONE (21:15)
[2023-02-20] MEDS ORDERED: NS 100 ML (IVPB) BAG IV ONE (21:15)
[2023-02-20 21:19] LABS: LIPASE 31 U/L (8-78)
--- NOTE | 2023-02-20 21:59 | Diagnostic Imaging Report ---
INDICATION: Chest pain, overdose, status post CPR CTA chest obtained with IV contrast bolus and axial slices and sagittal and coronal MIP reconstructions. Dose reduction protocol was used. There is no prior study for comparison. The pulmonary parenchymal vessels are well-opacified with no CT evidence of pulmonary emboli. The thoracic aorta shows some plaquing but no overt dissection. Bolus timing for the aorta was somewhat suboptimal. There are extensive coronary calcifications. The ascending aorta was aneurysmal measuring 4.5 cm. Lung windows demonstrated dependent atelectatic changes but no consolidation. There is no pleural or pericardial fluid. There were no overt bony abnormalities. IMPRESSION: No CT evidence of pulmonary emboli or acute aortic pathology. There is a 4.5 cm ascending aortic aneurysm. There is no pleural or pericardial fluid or pneumothorax. There are extensive coronary artery calcifications and cardiomegaly. Visualized portions of the upper abdomen show ectasia of the abdominal aorta, suggest full abdominal CT. Dictated by: Dictated on workstation # [id number]
[2023-02-20] MEDS ORDERED: hydrALAZINE INJECTION 20 MG/ML VIAL IV ONE (22:15)
[2023-02-20 23:01] LABS: BACTERIA,URINE NEGATIVE /HPF; BILIRUBIN,URINE NEGATIVE (NEGATIVE); CLARITY,URINE CLEAR; COLOR,URINE YELLOW; GLUCOSE, URINE (UA) NEGATIVE (NEGATIVE); KETONES,URINE NEGATIVE (NEGATIVE); LEUKOCYTE ESTERASE ,URINE NEGATIVE (NEGATIVE); NITRITE,URINE NEGATIVE (NEGATIVE); PH,URINE 5.5 (5-9); PROTEIN,URINE NEGATIVE (NEGATIVE); RBC,URINE RARE /HPF; WBC,URINE RARE /HPF
[2023-02-20 23:02] LABS: AMPHETAMINE SCREEN, URINE POSITIVE (NEGATIVE); BARBITURATE SCREEN URINE NEGATIVE (NEGATIVE); CANNABINOID SCREEN, URINE POSITIVE (NEGATIVE); COCAINE SCREEN URINE NEGATIVE (NEGATIVE); METHADONE STAT NEGATIVE (NEGATIVE); OPIATE SCREEN URINE NEGATIVE (NEGATIVE); OXYCODONE STAT NEGATIVE (NEGATIVE); PROPOXYPHENE STAT NEGATIVE (NEGATIVE); TRICYCLIC ANTIDEPRESSANTS SCRE NEGATIVE (NEGATIVE)
[2023-02-21] MEDS ORDERED: ENOXAPARIN 80 MG/0.8 ML SYRINGE SC ONE
[2023-02-21 00:45] VITALS: BP 119/97
[2023-02-21] MEDS ORDERED: NS IV 500 ML 500 ML IV PRN (01:00)
[2023-02-21] MEDS ORDERED: NITROGLYCERIN 0.4 MG SL TABLETS BTL 25'S SL PRN (01:15)
[2023-02-21] MEDS ORDERED: morphine INJ 4 MG/ML 1 ML (VIAL/SYRINGE) IV PRN (01:15)
[2023-02-21] MEDS ORDERED: ONDANSETRON INJECTION 4 MG/2 ML (SDV) IV PRN (01:15)
[2023-02-21] MEDS: D5 1/2NS + KCL 20 MEQ/L 1000ML 1,000 ML IV SCH ×2 (01:24→11:24)
[2023-02-21] MEDS ORDERED: POTASSIUM CL 10MEQ/50ML IVPB 50 ML IV SCH (06:00)
[2023-02-21] MEDS ORDERED: POTASSIUM CHLORIDE 20 MEQ TABLET PO SCH (06:00)
[2023-02-21] MEDS ORDERED: MAGNESIUM 1 GM/100 ML IVPB 100 ML IV SCH (06:00)
[2023-02-21 06:13] LABS: BASOPHILS % (AUTO) 0 % (0-10); EOSINOPHILS # (AUTO) 0.1 10^3/uL (0.0-0.3); EOSINOPHILS % (AUTO) 1 % (0-10); HEMATOCRIT 38 % (40-54); HEMOGLOBIN 12.9 g/dL (13.3-17.7); LYMPHOCYTES # (AUTO) 1.5 10^3/uL (1.0-4.0); LYMPHOCYTES % (AUTO) 16 % (12-44); MEAN CORPUSCULAR HEMOGLOBIN 29 pg (25-34); MEAN CORPUSCULAR HGB CONC 34 g/dL (32-36); MEAN CORPUSCULAR VOLUME 85 fL (80-99); MEAN PLATELET VOLUME 9.2 fL (9.0-12.2); MONOCYTES # (AUTO) 1.1 10^3/uL (0.0-1.0); MONOCYTES % (AUTO) 12 % (0-12); NEUTROPHILS # (AUTO) 6.8 10^3/uL (1.8-7.8); NEUTROPHILS % (AUTO) 70 % (42-75); PLATELET COUNT 300 10^3/uL (130-400); WHITE BLOOD COUNT 9.6 10^3/uL (4.3-11.0)
[2023-02-21] MEDS ORDERED: ACETAMINOPHEN 325 MG TABLET PO PRN ×2 (06:30)
[2023-02-21 06:45] LABS: ALBUMIN 3.8 GM/DL (3.2-4.5)
[2023-02-21 06:47] LABS: CALCIUM 8.6 MG/DL (8.5-10.1)
[2023-02-21 06:48] LABS: TOTAL PROTEIN 6.4 GM/DL (6.4-8.2)
[2023-02-21 06:50] LABS: BILIRUBIN,TOTAL 0.2 MG/DL (0.1-1.0)
[2023-02-21 06:51] LABS: PHOSPHORUS 3.2 MG/DL (2.3-4.7)
[2023-02-21 06:52] LABS: CREATININE SERUM 0.68 MG/DL (0.60-1.30)
[2023-02-21 06:55] LABS: MAGNESIUM 1.8 MG/DL (1.6-2.4)
[2023-02-21] MEDS: MAGNESIUM 1 GM/100 ML IVPB 100 ML IV SCH (07:02)
--- NOTE | 2023-02-21 08:27 | Consultation-Cardiology ---
HPI-Cardiology Cardiology Consultation Date of Consultation 02/21/23 Date of Admission Time Seen by Provider: 08:24 Indication: Elevated troponin level HPI 57-year-old gentleman with history of hypertension, multidrug use, he used methamphetamine and fentanyl last night and became unresponsive, his started chest compressions and called EMS and gave him Narcan. On arrival to the hospital he was feeling better, he is currently laying down in bed, feeling better, having chest wall pain, no previous cardiac history he was noted to have mild elevation in troponin which appears to be trending down. No acute EKG changes Home Medications & Allergies Allergies: Coded Allergies: No Known Drug Allergies (Unverified , 10/07/18) Home Medication List Reviewed: Yes [id number]-Yvhzfg Hx Patient Social History Marital Status: Drug of Choice: METH, COCAINE, THC--DENIES IV USE Smoking Status: Current Everyday Smoker Type Used: Cigarettes 2nd Hand Smoke Exposure: Yes Recent Hopitalizations: No Alcohol Use?: Yes Substance type: Amphetamines, Methamphetamine, Marijuana Immunizations Up To Date Tetanus Booster (TDap): Unknown Past Medical History Discussed below Family Medical History Significant Family History: No Pertinent Family Hx Review of Systems-General Review of Systems Constitutional: diaphoresis EENTM: no symptoms reported Respiratory: see HPI Cardiovascular: see HPI, chest pain; No edema, No Hx of Intervention, No palpitations; syncope; No vascular heart diseas, No other Gastrointestinal: no symptoms reported Genitourinary: no symptoms reported Musculoskeletal: no symptoms reported Skin: no symptoms reported Psychiatric/Neurological: See HPI Reviewed Test Results Reviewed Test Results Lab Laboratory Tests Test 02/20/23 20:03 02/20/23 22:38 02/20/23 23:03 02/21/23 02:00 Range/Units White Blood Count 10.1 4.3-11.0 10^3/uL Red Blood Count 4.63 4.30-5.52 10^6/uL Hemoglobin 13.4 13.3-17.7 g/dL Hematocrit 40 40-54 % Mean Corpuscular Volume 85 80-99 fL Mean Corpuscular Hemoglobin 29 25-34 pg Mean Corpuscular Hemoglobin Concent 34 32-36 g/dL Red Cell Distribution Width 12.9 10.0-14.5 % Platelet Count 311 130-400 10^3/uL Mean Platelet Volume 9.1 9.0-12.2 fL Immature Granulocyte % (Auto) 5 % Neutrophils (%) (Auto) 58 42-75 % Lymphocytes (%) (Auto) 22 12-44 % Monocytes (%) (Auto) 13 H 0-12 % Eosinophils (%) (Auto) 2 0-10 % Basophils (%) (Auto) 1 0-10 % Neutrophils # (Auto) 5.8 1.8-7.8 10^3/uL Lymphocytes # (Auto) 2.2 1.0-4.0 10^3/uL Monocytes # (Auto) 1.3 H 0.0-1.0 10^3/uL Eosinophils # (Auto) 0.2 0.0-0.3 10^3/uL Basophils # (Auto) 0.1 0.0-0.1 10^3/uL Immature Granulocyte # (Auto) 0.5 H 0.0-0.1 10^3/uL Prothrombin Time 12.0 L 12.2-14.7 SEC INR Comment 0.9 0.8-1.4 Activated Partial Thromboplast Time 28 24-35 SEC Sodium Level 132 L 135-145 MMOL/L Potassium Level 3.5 L 3.6-5.0 MMOL/L Chloride Level 97 L 98-107 MMOL/L Carbon Dioxide Level 22 21-32 MMOL/L Anion Gap 13 5-14 MMOL/L Blood Urea Nitrogen 13 7-18 MG/DL Creatinine 0.84 0.60-1.30 MG/DL Estimat Glomerular Filtration Rate 102 BUN/Creatinine Ratio 15 Glucose Level 153 H 70-105 MG/DL Calcium Level 9.2 8.5-10.1 MG/DL Corrected Calcium 9.0 8.5-10.1 MG/DL Magnesium Level 2.1 1.6-2.4 MG/DL Total Bilirubin 0.2 0.1-1.0 MG/DL Aspartate Amino Transf (AST/SGOT) 30 5-34 U/L Alanine Aminotransferase (ALT/SGPT) 26 0-55 U/L Alkaline Phosphatase 104 40-136 U/L Total Creatine Kinase 122 30-200 U/L Creatine Kinase MB 3.2 <6.6 NG/ML Troponin I < 0.028 0.093 H 0.086 H <0.028 NG/ML B-Type Natriuretic Peptide 119.9 H <100.0 PG/ML Total Protein 6.9 6.4-8.2 GM/DL Albumin 4.3 3.2-4.5 GM/DL Amylase Level 50 25-125 U/L Lipase 31 8-78 U/L Salicylates Level < 5.0 L 5.0-20.0 MG/DL Acetaminophen Level < 10 L 10-30 UG/ML Serum Alcohol < 10 <10 MG/DL Urine Color YELLOW Urine Clarity CLEAR Urine pH 5.5 5-9 Urine Specific [place] 1.010 L 1.016-1.022 Urine Protein NEGATIVE NEGATIVE Urine Glucose (UA) NEGATIVE NEGATIVE Urine Ketones NEGATIVE NEGATIVE Urine Nitrite NEGATIVE NEGATIVE Urine Bilirubin NEGATIVE NEGATIVE Urine Urobilinogen 0.2 < = 1.0 MG/DL Urine Leukocyte Esterase NEGATIVE NEGATIVE Urine RBC (Auto) NEGATIVE NEGATIVE Urine RBC RARE /HPF Urine WBC RARE /HPF Urine Squamous Epithelial Cells NONE /HPF Urine Crystals NONE /LPF Urine Bacteria NEGATIVE /HPF Urine Casts NONE /LPF Urine Mucus NEGATIVE /LPF Urine Culture Indicated NO Urine Opiates Screen NEGATIVE NEGATIVE Urine Oxycodone Screen NEGATIVE NEGATIVE Urine Methadone Screen NEGATIVE NEGATIVE Urine Propoxyphene Screen NEGATIVE NEGATIVE Urine Barbiturates Screen NEGATIVE NEGATIVE Ur Tricyclic Antidepressants Screen NEGATIVE NEGATIVE Urine Phencyclidine Screen NEGATIVE NEGATIVE Urine Amphetamines Screen POSITIVE H NEGATIVE Urine Methamphetamines Screen POSITIVE H NEGATIVE Urine Benzodiazepines Screen NEGATIVE NEGATIVE Urine Cocaine Screen NEGATIVE NEGATIVE Urine Cannabinoids Screen POSITIVE H NEGATIVE Test 02/21/23 04:20 02/21/23 06:04 Range/Units Troponin I 0.068 H <0.028 NG/ML White Blood Count 9.6 4.3-11.0 10^3/uL Red Blood Count 4.46 4.30-5.52 10^6/uL Hemoglobin 12.9 L 13.3-17.7 g/dL Hematocrit 38 L 40-54 % Mean Corpuscular Volume 85 80-99 fL Mean Corpuscular Hemoglobin 29 25-34 pg Mean Corpuscular Hemoglobin Concent 34 32-36 g/dL Red Cell Distribution Width 13.2 10.0-14.5 % Platelet Count 300 130-400 10^3/uL Mean Platelet Volume 9.2 9.0-12.2 fL Immature Granulocyte % (Auto) 2 % Neutrophils (%) (Auto) 70 42-75 % Lymphocytes (%) (Auto) 16 12-44 % Monocytes (%) (Auto) 12 0-12 % Eosinophils (%) (Auto) 1 0-10 % Basophils (%) (Auto) 0 0-10 % Neutrophils # (Auto) 6.8 1.8-7.8 10^3/uL Lymphocytes # (Auto) 1.5 1.0-4.0 10^3/uL Monocytes # (Auto) 1.1 H 0.0-1.0 10^3/uL Eosinophils # (Auto) 0.1 0.0-0.3 10^3/uL Basophils # (Auto) 0.0 0.0-0.1 10^3/uL Immature Granulocyte # (Auto) 0.1 0.0-0.1 10^3/uL Sodium Level 132 L 135-145 MMOL/L Potassium Level 4.0 3.6-5.0 MMOL/L Chloride Level 101 98-107 MMOL/L Carbon Dioxide Level 20 L 21-32 MMOL/L Anion Gap 11 5-14 MMOL/L Blood Urea Nitrogen 12 7-18 MG/DL Creatinine 0.68 0.60-1.30 MG/DL Estimat Glomerular Filtration Rate 108 BUN/Creatinine Ratio 18 Glucose Level 127 H 70-105 MG/DL Calcium Level 8.6 8.5-10.1 MG/DL Corrected Calcium 8.8 8.5-10.1 MG/DL Phosphorus Level 3.2 2.3-4.7 MG/DL Magnesium Level 1.8 1.6-2.4 MG/DL Total Bilirubin 0.2 0.1-1.0 MG/DL Aspartate Amino Transf (AST/SGOT) 24 5-34 U/L Alanine Aminotransferase (ALT/SGPT) 20 0-55 U/L Alkaline Phosphatase 86 40-136 U/L Total Protein 6.4 6.4-8.2 GM/DL Albumin 3.8 3.2-4.5 GM/DL Physical Exam Physical Exam Vital Signs Vital Signs - First Documented 02/20/23 20:00 Temp 36.4 Pulse 80 Resp 16 B/P (MAP) 166/111 (129) Pulse Ox 96 O2 Delivery Room Air O2 Flow Rate 2.00 Capillary Refill : Less Than 3 Seconds Height, Weight, BMI Height: 5'2.00" Weight: 150lbs. oz. 68.964262rx; 26.12 BMI Method:Stated General Appearance: No Apparent Distress, WD/WN Eyes: Bilateral Eye Normal Inspection, Bilateral Eye PERRL, Bilateral Eye EOMI HEENT: Other (EDENTULOUS; PUPILS PINPOINT/EQUAL) Neck: Normal Inspection Respiratory: Normal Breath Sounds, No Accessory Muscle Use, No Respiratory Distress, Other (STERNUM VERY TENDER--PALPATION REPRODUCES PAIN ) Cardiovascular: Regular Rate, Rhythm, No Edema, No Murmur, Normal Peripheral Pulses Gastrointestinal: Non Tender, Soft Back: Normal Inspection, No CVA Tenderness, No Vertebral Tenderness Extremity: Normal Capillary Refill, Normal Inspection, No Pedal Edema Neurologic/Psychiatric: Alert, No Motor/Sensory Deficits, dynamicist II-XII Norm as Tested Skin: Cool, Diaphoresis (PROFUSELY DIAPHORETIC) Lymphatic: No Adenopathy A/P-Cardiology Admission Diagnosis Syncope Non-ST elevation myocardial infarction type II MA Thoracic aortic aneurysm Hypertension Assessment/Plan Syncope, probably secondary to multidrug use including fentanyl and methamphetamine Currently feeling better Mild elevation in troponin, probably secondary to cardiopulmonary arrest. Type II MA Troponin level is trending down. Continue to monitor Planning for stress test as an outpatient once clinically stable Frequent PVCs, starting low-dose beta-marilyn and evaluate tolerance and response Thoracic aortic aneurysm, ascending thoracic aorta 4.5 cm Starting beta-marilyn, restart lisinopril Monitor blood pressure closely Monitor serial CT in the future Hypertension, management as above Multidrug use, consulted on avoiding any illicit drug especially with the need for thoracic aortic aneurysm repair Clinical Quality Measures AMI/AHF: ASA po Prior to arrival: ISMAEL Oliva MD Feb 21, 2023 08:27
[2023-02-21] MEDS ORDERED: ASPIRIN enteric coated 81MG TABLET PO SCH (09:00)
[2023-02-21] MEDS ORDERED: ENOXAPARIN 80 MG/0.8 ML SYRINGE SC SCH (09:00)
--- NOTE | 2023-02-21 09:52 | Short Stay Summary-Hospitalist ---
History of Present Illness HPI/Chief Complaint Pt is a 57yoCM who presented to the ER following a fentanyl overdose. He erports he has long had issues with opoid addiction and had not been using recently but instead using Kratom. He was given fentanyl by a friend and after "two hits" he started to feel off. He doesnt remember much other than what he was told. He st ates his found him unresponsive so gave him Narcan x2 and started CPR and summoned EMS. On arrival EMS noted him to be alert and oriented. They are unsure if he ever lost a pulse. His only complaint this morning is that he is sore in his chest from the compressions. He was found to have a mildly elevated troponin so was admitted for observation. Source: patient Date Seen 02/21/23 Time Seen by a Provider: 07:45 Attending Physician Rimma,Local Physician PCP Admitting Physician: Tj Méndez MD Attending Physician: Tj Méndez MD Referring Physician Date of Admission Feb 21, 2023 at 00:24 Home Medications & Allergies Home Medications Reviewed patient Home Medication Reconciliation performed by pharmacy medication reconciliations land[employer] field technician and/or nursing. Patients Allergies have been reviewed. Allergies Allergies Coded Allergies No Known Drug Allergies (Unverified10/07/18) Past Tmnpddu-Jsrxje-Iqwmwr Hx Patient Social History Marrital Status: Tobacco Use?: Yes Tobacco type used: Cigarettes Smoking Status: Current Everyday Smoker Smokeless Tobacco Frequency: Never a User Use of E-Cig and/or Vaping dev: No Substance use?: Yes Substance type: Amphetamines, Methamphetamine, Marijuana Additional substance use comme: KRATOM; FENTANYL, COCAINE Substance frequency: Daily Alcohol Use?: Yes Pt feels they are or have been: No Immunizations Up To Date Tetanus Booster (TDap): Unknown PED Vaccines UTD: Yes Seasonal Allergies Seasonal Allergies: Yes Current Status Advance Directives: No Communicates: Verbally Primary Language: Danish Preferred Spoken Language: Danish Is interpretation needed?: No Past Medical History Surgeries: Amputation, Orthopedic COPD High Cholesterol, Hypertension ADD/ADHD, Anxiety, Depression Family Medical History No Pertinent Family Hx SOCIAL HISTORY: -SMOKES 2 PPD -ETOH--"OCCASIONAL USE" NOW, PER PT ON 02/20/23, BUT HAS HISTORY OF HEAVY, DAILY USE -DRUGS--+ IV METH USE, ALSO SMOKES IT, SMOKES FENTANYL, KRATOM, THC, COCAINE, OTHERS. MULTIPLE PSYCH ADMITS Review of Systems Constitutional: see HPI Physical Exam Physical Exam Vital Signs Vital Signs - First Documented 02/20/23 20:00 Temp 36.4 Pulse 80 Resp 16 B/P (MAP) 166/111 (129) Pulse Ox 96 O2 Delivery Room Air O2 Flow Rate 2.00 Capillary Refill : Less Than 3 Seconds Height, Weight, BMI Height: 5'2.00" Weight: 150lbs. oz. 68.601520ak; 26.12 BMI Method:Stated General Appearance: No Apparent Distress, WD/WN Eyes: Bilateral Eye Normal Inspection, Bilateral Eye PERRL, Bilateral Eye EOMI HEENT: Other (EDENTULOUS; PUPILS PINPOINT/EQUAL) Neck: Normal Inspection Respiratory: Lungs Clear, No Accessory Muscle Use, No Respiratory Distress, Other (STERNUM VERY TENDER--PALPATION REPRODUCES PAIN ) Cardiovascular: Regular Rate, Rhythm, No Edema, No Murmur, Normal Peripheral Pulses Gastrointestinal: Non Tender, Soft Back: Normal Inspection, No CVA Tenderness, No Vertebral Tenderness Extremity: Normal Capillary Refill, Normal Inspection, No Pedal Edema Neurologic/Psychiatric: Alert, Oriented x3, No Motor/Sensory Deficits Skin: Normal Color, Warm/Dry Lymphatic: No Adenopathy Results Results/Procedures Labs Laboratory Tests 02/20/23 20:03 02/21/23 06:04 Patient resulted labs reviewed. Imaging: Reviewed Imaging Report Imaging [facility], [place], [place] NAME: ADOLPH DENT [facility] REC#: [id number] PT STATUS: REG ER : 1965 PHYSICIAN: CAMERON AGUILAR DO ADMIT DATE: 02/20/23/ER Signed Date of Exam:02/20/23 CHEST 1 VIEW, AP/PA ONLY INDICATION: Chest pain Frontal chest obtained at 0818 p.m. Heart is borderline enlarged. Mediastinal silhouette is unremarkable. The lungs are clear. There is no pneumothorax or pleural fluid. IMPRESSION: Borderline cardiomegaly with no acute infiltrate or pleural fluid. Dictated by: Dictated on workstation # [id number] Dict: 02/20/232019 Trans: 02/20/[address] [place] [address] [id number] Interpreted by: DEBBIE SKELTON MD Electronically signed by: DEBBIE SKELTON MD 02/20/232109 [facility]. [place], [place] NAME: ADOLPH DENT [facility] REC#: [id number] PT STATUS: REG ER : 1965 PHYSICIAN: CAMERON AGUILAR DO ADMIT DATE: 02/20/23/ER Signed Date of Exam:02/20/23 CT ANGIO CHEST W (R/O PE) INDICATION: Chest pain, overdose, status post CPR CTA chest obtained with IV contrast bolus and axial slices and sagittal and coronal MIP reconstructions. Dose reduction protocol was used. There is no prior study for comparison. The pulmonary parenchymal vessels are well-opacified with no CT evidence of pulmonary emboli. The thoracic aorta shows some plaquing but no overt dissection. Bolus timing for the aorta was somewhat suboptimal. There are extensive coronary calcifications. The ascending aorta was aneurysmal measuring 4.5 cm. Lung windows demonstrated dependent atelectatic changes but no consolidation. There is no pleural or pericardial fluid. There were no overt bony abnormalities. IMPRESSION: No CT evidence of pulmonary emboli or acute aortic pathology. There is a 4.5 cm ascending aortic aneurysm. There is no pleural or pericardial fluid or pneumothorax. There are extensive coronary artery calcifications and cardiomegaly. Visualized portions of the upper abdomen show ectasia of the abdominal aorta, suggest full abdominal CT. Dictated by: Dictated on workstation # [id number] Dict: 02/20/232150 Trans: 02/20/232215 [facility] [phone] Interpreted by: DEBBIE SKELTON MD Electronically signed by: DEBBIE SKELTON MD 02/20/232215 Short Stay Diagnosis Discharge Diagnosis-Short Stay Admission Diagnosis Fentanyl Overdose Final Discharge Diagnosis Fentanyl Overdose Conclusion Plan Fentanyl Overdose Elevated Troponin Thoracic aortic aneurysm Mentation improved, breathing easily today No further Narcan needed Trop trended down Cardiology consulted, appreciate recs- needs outpatient stress Echo pending when pt elected to leave AMA Dr Jackson read echo after reveals moderate aortic stenosis I called and spoke with Dr Thomas at [facility] to get a message to his PCP at [facility] regarding these findings and needed follow up Encouraged patient on abstaining from further illicit drug use- is interested in established with Dr Shelbi Hart for addiction treatment Pt did report plans to get more Narcan to keep as home for risk reduction. Clinical Quality Measures AMI/AHF: ASA po Prior to arrival: LEVI Arguello MD Feb 21, 2023 09:52
== END 2023-02-21 13:03 | disposition left against medical advice (07) | DRG 917 ==
LOC: EDUNIT# 19:58 → ER 19:59 → ICU 02-21 00:24
PROVIDERS: ADMIT Internal Medicine; ATTEND Internal Medicine
DX: T40.411A Poisoning by fentanyl or fentanyl analogs, accidental (unintentional), initial encounter (principal); I21.A1 Myocardial infarction type 2; I46.9 Cardiac arrest, cause unspecified; F15.10 Other stimulant abuse, uncomplicated; F14.10 Cocaine abuse, uncomplicated; F12.10 Cannabis abuse, uncomplicated; I16.0 Hypertensive urgency; F17.210 Nicotine dependence, cigarettes, uncomplicated; J44.9 Chronic obstructive pulmonary disease, unspecified; E78.00 Pure hypercholesterolemia, unspecified; I10 Essential (primary) hypertension; F90.9 Attention-deficit hyperactivity disorder, unspecified type; F41.9 Anxiety disorder, unspecified; F32.A Depression, unspecified; I71.21 Aneurysm of the ascending aorta, without rupture; I49.3 Ventricular premature depolarization; I35.0 Nonrheumatic aortic (valve) stenosis; Z89.021 Acquired absence of right finger(s)
CPT/HCPCS: 36415; 71045; 71275; 80053; 80306; 80320; 80329; 81000; 82150; 82550; 82553; 83690; 83735; 83880; 84100; 84484; 85025; 85610; 85730; 87081; 93005; 93041; 93306; 96372; 96374